=== PATIENT | female | born 1945 | race Caucasian/White ===

== ENCOUNTER 2020-09-02 08:10 | Emergency (ER) | payer MEDICARE, SELFPAY ==
[2020-09-02 08:18] VITALS: BP 130/62; PULSE 84; RESP 16; TEMP 36.4; O2SAT 97; BMI 31.0
--- NOTE | 2020-09-02 08:31 | ED.HA ---
HPI - Headache General Chief Complaint: Headache Stated Complaint: headache Time Seen by Provider: 09/02/20 08:31 Source: patient and conference interpreter Mode of arrival: ambulatory Limitations: no limitations History of Present Illness MD elicited complaint: headache and other (body aches, abdominal pain and nausea) Onset (ago): day(s) (2) Onset description: gradually Location: generalized Severity: moderate Quality & Timing: aching and throbbing Exacerbating factors: none Relieving factors: nothing Context: occurred at rest Associated symptoms: nausea and other (abdominal pain, body aches) Treatments prior to arrival: none Related Data Previous Rx's Medication Instructions Recorded hydrocodone-acetaminophen 1 tab PO Q6H PRN #7 tab 09/02/20 levofloxacin 250 mg PO DAILY 7 Days #7 tab 09/02/20 metronidazole [Flagyl] 500 mg PO BID #14 tab 09/02/20 ondansetron 4 mg PO Q8H PRN #20 tab 09/02/20 Allergies Allergy/AdvReac Type Severity Reaction Status Date / Time ampicillin [AMPICILLIN] Allergy Intermediate RASH Verified 09/02/20 08:15 aspirin [Aspirin] Allergy Unknown UNKNOWN Verified 09/02/20 08:15 clarithromycin [From Biaxin] Allergy Unknown UNKNOWN Verified 09/02/20 08:15 naproxen [From NAPROSYN] Allergy Unknown UNKNOWN Verified 09/02/20 08:15 penicillin V Allergy Unknown Unknown Verified 09/02/20 08:15 Penicillins Allergy Unknown UNKNOWN Verified 09/02/20 08:15 Motrin Allergy Unknown Unknown Uncoded 09/02/20 08:15 From AVELOX AdvReac Intermediate RASH Uncoded 08/13/20 15:32 Review of Systems Review of Systems: Constitutional : No Fever, No Chills, No Fatigue ENT/Mouth : No sore throat, No Rhinorrhea Eyes: No Eye Pain, No Swelling, No Redness Cardiovascular : No Chest Pain, No SOB, No Dyspnea on Exertion Respiratory : No Cough, No Sputum Gastrointestinal : pos Nausea, No Vomiting, No Diarrhea, pos abdominal Pain Genitourinary : No Dysuria, No Urinary Frequency, No Hematuria, Musculoskeletal : No joint pain, No Myalgias, No Joint Swelling Skin : No Skin Lesions, No rash Neuro : No Weakness, No Numbness, No Dizziness, positive Headache Psych : No Anxiety/Panic, No Depression Heme/Lymph: No Bruising, No Bleeding,No Lymphadenopathy Endocrine : No Polyuria, No Polydipsia All other systems reviewed and are negative [facility] Past Medical History Medical History (Updated 09/02/20 @ 11:31 by Jessica Tian DO) Asthma Diabetes HTN (hypertension) Surgical History (Updated 09/02/20 @ 09:45 by Jessica Tian DO) History of hysterectomy Social History Social History Smoking Status: Never smoker Smoked in Last 30 Days: No Use of substances other than those prescribed or required for medical reasons: No Advance Directives: No Advance Directives Information Provided: No Physical Exam Vital Signs and I&O and Narrative: Vital Signs and I&O: Vital Signs Temp 98.8 F 09/02/20 10:57 Pulse 75 09/02/20 10:57 Resp 16 09/02/20 10:57 BP 100/46 L 09/02/20 10:57 Pulse Ox 100 09/02/20 10:57 Intake & Output 09/01/20 09/02/20 09/02/20 18:59 06:59 18:59 Weight 72.121 kg Body Mass Index 31.0 Appearance: Alert. Oriented X3. No acute distress. Eyes: Pupils equal, round and reactive to light. ENT: Pharynx normal. Neck: Normal inspection. Neck supple. CVS: Normal heart rate and rhythm. Pulses normal. Respiratory: No respiratory distress. Breath sounds normal. Abdomen: Soft and mild epigastric ttp Skin: Skin warm and dry. Normal skin color. Normal skin turgor. Extremities: No lower extremity edema. No lower extremity edema. Neuro: Oriented X 3. No motor deficit. No sensory deficit. Course Course Course Narrative: patient feels much better stable for DC, allergy to PCN will need levo and flagyl, patient feels well to go home MDM - Headache MDM Narrative Medical decision making narrative: patient with multiple complaints including abdominal pain and nausea for 2 days, body aches and headache, given age will need labs, CT scan for obstruction, EKG, IV morphine for pain, gradual onset, neuro intact no fevers doubt [employer] infection/SAH Lab Data Result diagrams: 09/02/20 09:05 09/02/20 09:05 Labs: Lab Results 10/07/20 10/07/20 10/07/20 Range/Units 09:05 09:05 09:05 WBC 8.3 (4.8-10.8) X10*3/uL RBC 3.40 L (4.20-5.50) X10*6/uL Hgb 10.6 L (12.0-16.0) g/dl Hct 33.1 L (37-47) % MCV 97.4 (80-98) fL MCH 31.2 (27.0-33.0) pg MCHC 32.0 (31.0-35.0) g/dl RDW 12.2 (11.0-16.0) % Plt Count 226 (160-400) X10*3/uL MPV 9.5 (9.4-12.3) fL Immature Gran % (Auto) 0.8 H (0.0-0.4) % Neut % (Auto) 68.7 (45-73) % Lymph % (Auto) 17.9 L (20-40) % Jackson % (Auto) 8.0 (2-11) % Eos % (Auto) 4.0 (0-4) % Baso % (Auto) 0.6 (0-2) % Neut # (Auto) 5.7 (2.0-8.3) X10*3/uL Lymph # (Auto) 1.5 (1.2-4.9) X10*3/uL Jackson # (Auto) 0.7 (0.1-1.2) X10*3/uL Eos # (Auto) 0.3 (0.0-0.4) X10*3/uL Baso # (Auto) 0.1 (0.0-0.2) X10*3/uL Abs Immat Gran (auto) 0.07 H (0.00-0.03) X10*3/uL Absolute Nucleated RBC 0.000 (0.0-0.012) X10*3/uL Nucleated RBC % (auto) 0.0 (0.0-0.2) /100WBC Hold Blue Top SEE NOTE Sodium 140 (135-145) mmol/L Potassium 4.5 (3.3-5.1) mmol/l Chloride 107 (96-108) mmol/L Carbon Dioxide 22 (22-29) mmol/L Anion Gap 16 (12-20) BUN 25 H (9-16) mg/dL Creatinine 0.67 (0.5-1.4) mg/dL Estim Creat Clear Calc 64.3 Estimated GFR > 60 Random Glucose 194 H (60-115) mg/dL Calcium 9.0 (8.4-10.2) mg/dL Magnesium 1.7 (1.6-2.6) mg/dL Total Bilirubin 0.3 (0.0-1.0) mg/dL Direct Bilirubin < 0.2 (0.0-0.5) mg/dL AST 37 H (5-31) U/L ALT 44 H (0-31) U/L Alkaline Phosphatase 52 (39-117) U/L Troponin I High Sens (<3.5-17.0) ng/L Total Protein 6.5 (6.5-8.0) g/dL Albumin 3.9 (3.5-5.0) g/dL Lipase 57 (8-78) U/L 09/02/20 Range/Units 09:05 WBC (4.8-10.8) X10*3/uL RBC (4.20-5.50) X10*6/uL Hgb (12.0-16.0) g/dl Hct (37-47) % MCV (80-98) fL MCH (27.0-33.0) pg MCHC (31.0-35.0) g/dl RDW (11.0-16.0) % Plt Count (160-400) X10*3/uL MPV (9.4-12.3) fL Immature Gran % (Auto) (0.0-0.4) % Neut % (Auto) (45-73) % Lymph % (Auto) (20-40) % Jackson % (Auto) (2-11) % Eos % (Auto) (0-4) % Baso % (Auto) (0-2) % Neut # (Auto) (2.0-8.3) X10*3/uL Lymph # (Auto) (1.2-4.9) X10*3/uL Jackson # (Auto) (0.1-1.2) X10*3/uL Eos # (Auto) (0.0-0.4) X10*3/uL Baso # (Auto) (0.0-0.2) X10*3/uL Abs Immat Gran (auto) (0.00-0.03) X10*3/uL Absolute Nucleated RBC (0.0-0.012) X10*3/uL Nucleated RBC % (auto) (0.0-0.2) /100WBC Hold Blue Top Sodium (135-145) mmol/L Potassium (3.3-5.1) mmol/l Chloride (96-108) mmol/L Carbon Dioxide (22-29) mmol/L Anion Gap (12-20) BUN (9-16) mg/dL Creatinine (0.5-1.4) mg/dL Estim Creat Clear Calc Estimated GFR Random Glucose (60-115) mg/dL Calcium (8.4-10.2) mg/dL Magnesium (1.6-2.6) mg/dL Total Bilirubin (0.0-1.0) mg/dL Direct Bilirubin (0.0-0.5) mg/dL AST (5-31) U/L ALT (0-31) U/L Alkaline Phosphatase (39-117) U/L Troponin I High Sens 8.8 (<3.5-17.0) ng/L Total Protein (6.5-8.0) g/dL Albumin (3.5-5.0) g/dL Lipase (8-78) U/L ECG Data ECG interpretation date: 09/02/20 ECG interpretation time: 10:27 Interpretation: Rate: 74 Rhythm: NSR Pingree: normal Normal P waves. Normal MALINDA. Normal QRS complex. ST T wave : normal qTC: normal prior studies: no acute ischemia The study has been interpreted contemporaneously by me. . Discharge Plan Discharge Clinical Impression: Diverticulitis Patient Disposition: Home, Self-Care Instructions: Diverticulitis (ED) Prescriptions: New metronidazole [Flagyl] 500 mg tablet 500 mg PO BID Qty: 14 RF: 0 levofloxacin 250 mg tablet 250 mg PO DAILY 7 Days Qty: 7 RF: 0 ondansetron 4 mg tablet,disintegrating 4 mg PO Q8H PRN (Reason: nausea and vomiting) Qty: 20 RF: 0 hydrocodone-acetaminophen 5-325 mg tablet 1 tab PO Q6H PRN (Reason: pain) Qty: 7 RF: 0 Referrals: Xenia England MD [Primary Care Provider] - 5 days Print Language: Lithuanian
--- NOTE | 2020-09-02 08:57 | XR_ITS ---
EXAMINATION: XR CHEST CLINICAL INFORMATION: Weakness COMPARISON: Portable chest 05/14/2020, 01/30/2020, 01/07/2020 TECHNIQUE: Portable upright AP view of the chest was obtained. FINDINGS: Cardiopulmonary appearance appears similar to prior studies. Again, there is mild prominence cardiopericardial silhouette with coarsening of the bronchiolar markings and linear scar adjacent to minor fissure. There is no lobar or segmental airspace consolidation, vascular congestion, or effusion. No definite groundglass opacities. The hilar and mediastinal contours and bony structures are unremarkable. IMPRESSION: 1. No acute intrathoracic disease. 2. Coarsening bronchiolar markings, mild cardiomegaly, and scarring right mid zone similar to prior studies.
--- NOTE | 2020-09-02 08:57 | ECG_ITS ---
Test Reason : HEADACHE Blood Pressure : / mmHG Vent. Rate : 074 BPM Atrial Rate : 074 BPM P-R Int : 154 ms QRS Dur : 086 ms QT Int : 392 ms P-R-T Axes : 041 026 043 degrees QTc Int : 435 ms Normal sinus rhythm Cannot rule out Anterior infarct , age undetermined Abnormal ECG When compared with ECG of 19-MAY-2020 05:53, No significant change was found Referred By: Jessica Tian Electronically Signed By:MAGALI MC
--- NOTE | 2020-09-02 08:57 | CT_ITS ---
EXAMINATION: CT ABDOMEN AND PELVIS WITHOUT CONTRAST CLINICAL INFORMATION: Pain and nausea COMPARISON: Previous abdominal ultrasound October [address] of the abdomen and pelvis September 2018 TECHNIQUE: Multidetector volumetric imaging was performed from the superior aspect of the liver through the pubic symphysis. Sagittal and coronal reformatted images were obtained on the technologist's workstation. This CT examination was performed using dose optimization techniques as appropriate, variously including the following: *Automated exposure control *Adjustment of mA and/or kV according to patient size (this includes techniques or standardized protocols for targeted exams where dose is matched to indication/reason for exam; i.e. extremities or head) *Use of iterative reconstruction technique DLP: 576 mGy-cm FINDINGS: LUNG BASES: There is subsegmental atelectasis seen at the lung bases. There is a 5 mm peripheral left lower lobe nodule axial image 22 series 4 that is stable. There is question of mild peripheral interstitial disease versus dependent atelectasis. The heart is enlarged. These findings are similar to 2018 exam. LIVER, GALLBLADDER, AND BILIARY TREE: The liver is normal in size, shape, and attenuation. No focal hepatic lesion or biliary ductal dilatation is present. The gallbladder is unremarkable with no evidence of radiopaque gallstones, gallbladder wall thickening, or obvious pericholecystic inflammatory changes. PANCREAS: There are 2 small calcifications seen in the head of pancreas. These are similar to September 2018 exam. The pancreas is otherwise unremarkable. There is no biliary duct dilatation. SPLEEN: Unremarkable. ADRENAL GLANDS: There is a 7 mm partially calcified nodule in the posterior limb of the left adrenal gland axial image 21 series 3 that is stable. The right adrenal gland is normal-appearing. KIDNEYS AND URETERS: There is a question of a slight increased attenuation in the upper pole of the left kidney measuring approximately 6 mm axial image 27 series 3. This may represent a complex cyst. There is a 1 cm low-attenuation lesion exophytic to the lower pole of the left kidney that is similar to previous exam and probably represents a cyst or BLADDER: Not optimally distended but appears unremarkable. GASTROINTESTINAL TRACT: There is evidence of severe diverticulosis of the colon. There is wall thickening of the sigmoid colon and it is definite difficult to exclude mild diverticulitis. No evidence of obstruction or abscess is seen. Small bowel is unremarkable. The appendix is unremarkable. The stomach is unremarkable. ABDOMINAL WALL: No significant hernia is appreciated. LYMPH NODES: Normal. VASCULAR: Unremarkable. PELVIC VISCERA: The uterus appears to have been removed. No pelvic mass is seen. OSSEOUS STRUCTURES: There are old right-sided rib fractures. There are mild degenerative changes of the spine. IMPRESSION: Severe diverticular disease of the colon. It is difficult to exclude mild diverticulitis of the sigmoid colon. Probable left renal cysts with question hyperdense cyst in the upper pole. Stable small calcifications in the head of the pancreas..
[2020-09-02 09:11] LABS: MANUAL DIFF FLAG NO
[2020-09-02 09:14] LABS: Basophils Absolute Auto 0.1 X10*3/uL (0.0-0.2); Basophils Percent Auto 0.6 % (0-2); Eosinophils Absolute Auto 0.3 X10*3/uL (0.0-0.4); Hematocrit 33.1 % (37-47); Hemoglobin 10.6 g/dl (12.0-16.0); Imm Gran Abs Auto 0.07 X10*3/uL (0.00-0.03); Imm Gran Pct Auto 0.8 % (0.0-0.4); Lymphocytes Absolute Auto 1.5 X10*3/uL (1.2-4.9); Lymphocytes Percent Auto 17.9 % (20-40); Mean Corpuscular Hemoglobin 31.2 pg (27.0-33.0); Mean Corpuscular Volume 97.4 fL (80-98); Mean Platelet Volume 9.5 fL (9.4-12.3); Monocytes Absolute Auto 0.7 X10*3/uL (0.1-1.2); Neutrophils Absolute Auto 5.7 X10*3/uL (2.0-8.3); Neutrophils Percent Auto 68.7 % (45-73); Platelet Count 226 X10*3/uL (160-400); Red Cell Distribution Width 12.2 % (11.0-16.0); White Blood Count 8.3 X10*3/uL (4.8-10.8)
[2020-09-02] MEDS: ondansetron HCL 4 MG/2 ML VIAL IVPUSH (09:17)
[2020-09-02] MEDS: Morphine Sulfate 4 MG/ML CARTRIDGE IVPUSH (09:17)
[2020-09-02 09:18] VITALS: BP 117/58; PULSE 88
[2020-09-02 09:44] LABS: Troponin-I High Sensitivity 8.8 ng/L (<3.5-17.0)
[2020-09-02 09:46] LABS: Alanine Aminotransferase 44 U/L (0-31); Albumin Level 3.9 g/dL (3.5-5.0); Alkaline Phosphatase 52 U/L (39-117); Anion Gap 16 (12-20); Aspartate Amino Transferase 37 U/L (5-31); Bilirubin Direct < 0.2 mg/dL (0.0-0.5); Bilirubin Total 0.3 mg/dL (0.0-1.0); Blood Urea Nitrogen 25 mg/dL (9-16); Carbon Dioxide 22 mmol/L (22-29); Chloride 107 mmol/L (96-108); Creatinine Clr Calc Pharmacy 64.3; Estimated Glomerular Filt Rate > 60; Glucose Random 194 mg/dL (60-115); Lipase 57 U/L (8-78); Magnesium 1.7 mg/dL (1.6-2.6); Potassium 4.5 mmol/l (3.3-5.1); Sodium 140 mmol/L (135-145); Total Protein 6.5 g/dL (6.5-8.0)
[2020-09-02 10:57] VITALS: BP 100/46; PULSE 75; RESP 16; TEMP 37.1; O2SAT 100
== END 2020-09-02 12:00 | disposition home or self-care (01) ==
PROVIDERS: Emergency Provider Emergency Medicine; PCP Internal Medicine
DX: K57.92 Diverticulitis of intestine, part unspecified, without perforation or abscess without bleeding (principal); E11.9 Type 2 diabetes mellitus without complications; I10 Essential (primary) hypertension; J45.909 Unspecified asthma, uncomplicated
CPT/HCPCS: 36415; 71045; 74176; 80048; 80076; 83690; 83735; 84484; 85025; 93005; 93010; 96374; 96375; 99284; J2270; J2405

== ENCOUNTER → 2020-09-11 12:31 | Outpatient (BNVA) | payer MEDICARE, SELFPAY | PROVIDERS: PCP Internal Medicine; Referring Provider Internal Medicine; Visit Provider Nurse Practitioner | DX: K21.9 Gastro-esophageal reflux disease without esophagitis (principal); K22.70 Barrett's esophagus without dysplasia; K22.4 Dyskinesia of esophagus; Z79.899 Other long term (current) drug therapy | CPT/HCPCS: 99213 ==

== ENCOUNTER 2020-09-21 07:49 | Emergency (ER) | payer MEDICARE, SELFPAY ==
[2020-09-21 08:10] VITALS: BP 127/59; PULSE 87; RESP 17; TEMP 36.1; O2SAT 98; BMI 29.2
--- NOTE | 2020-09-21 08:17 | XR_ITS ---
EXAMINATION: XR CHEST CLINICAL INFORMATION: Body aches, chills, productive cough for one week COMPARISON: Chest radiographs 09/02/2020, 05/19/2020, 05/14/2020, CT abdomen 09/02/2020 TECHNIQUE: Portable upright AP view of the chest was obtained. FINDINGS: Patient slightly rotated to left. There is coarsening bronchiolar markings again noted with some chronic thickening minor fissure is similar to prior studies. There is subtle groundglass opacity and subsegmental atelectasis left retrocardiac region. There is no confluent lobar or segmental airspace consolidation. No effusion. The costophrenic sulci are clear. The hilar and mediastinal contours and bony structures are stable. XR/XR chest 1V IMPRESSION: 1. Patchy groundglass opacity left posterior base which could be related to atypical pneumonia or viral process. 2. Coarsening bronchiolar markings. No effusion.
--- NOTE | 2020-09-21 08:46 | ED_ITS ---
HPI - URI/Sore Throat General Chief Complaint: Upper Respiratory Symptoms Stated Complaint: NECK/BACK PAIN Time Seen by Provider: 09/21/20 08:06 Source: patient Mode of arrival: ambulatory Limitations: no limitations History of Present Illness HPI Narrative: 75yoF c PMHx of multivessel CAD, severe COPD, HTN, HLD, DM, Mitral regurgitation whom recently underwent PCI c stent placement to proximal 0M-2 coronary artery x 3 weeks at [facility] presenting to the ED c c/o dry intermittent cough c sob and body aches x 3 days. Patient was instructed to continue aspirin and Plavix daily. Patient denies any dizziness, headache, nausea /vomiting, chest pain or any other symptoms or complaints or concerns at this time. denies recent travel or sick contacts. Related Data Previous Rx's Medication Instructions Recorded hydrocodone-acetaminophen 1 tab PO Q6H PRN #7 tab 09/02/20 levofloxacin 250 mg PO DAILY 7 Days #7 tab 09/02/20 metronidazole [Flagyl] 500 mg PO BID #14 tab 09/02/20 ondansetron 4 mg PO Q8H PRN #20 tab 09/02/20 omeprazole 20 mg capsule,delayed 20 mg PO BID 30 Days #60 cap 09/08/20 release acetaminophen [Tylenol] 650 mg PO Q6H PRN #14 tab 09/21/20 cyclobenzaprine 10 mg PO TID PRN #10 tab 09/21/20 doxycycline hyclate 100 mg PO BID 10 Days #20 cap 09/21/20 Allergies Allergy/AdvReac Type Severity Reaction Status Date / Time ampicillin [AMPICILLIN] Allergy Intermediate RASH Verified 09/02/20 08:15 aspirin [Aspirin] Allergy Unknown UNKNOWN Verified 09/02/20 08:15 clarithromycin [From Biaxin] Allergy Unknown UNKNOWN Verified 09/02/20 08:15 penicillin V Allergy Unknown Unknown Verified 09/02/20 08:15 Penicillins Allergy Unknown UNKNOWN Verified 09/02/20 08:15 Motrin Allergy Unknown Unknown Uncoded 09/02/20 08:15 From AVELOX AdvReac Intermediate RASH Uncoded 08/13/20 15:32 Review of Systems Review of Systems: Constitutional : No Weight loss, No Fever, No Chills, No Night Sweats, No Fatigue, No Malaise ENT/Mouth : No Hearing loss, No Ear Pain, No Nasal Congestion, No Sinus Pain, No Hoarseness, No sore throat, No Rhinorrhea, No Swallowing Difficulty Eyes: No Eye Pain, No Vision Changes Cardiovascular : + SOB, no Dyspnea on Exertion, No Orthopnea, No Edema, No extremity swelling, No Palpitations Respiratory : + Cough, No Sputum, No Wheezing, No Dyspnea Gastrointestinal : No Nausea, No Vomiting, No Diarrhea, No abdominal Pain, No Hematochezia, No Melena DU: No Dysuria Musculoskeletal : No joint pain, No Myalgias, No Joint Swelling Skin : No Skin Lesions, No rash Neuro : No Weakness, No Numbness, No Paresthesias, No Loss of Consciousness, No Dizziness, No Headache Psych : No Anxiety/Panic, No Depression, No SI/HI/AH/VH Heme/Lymph: No Lymphadenopathy Endocrine : No Polyuria, No Polydipsia, No Temperature Intolerance Yes all oth er systems are reviewed and are negative [facility] Past Medical History Attestation statement: The following information was validated with the patient. Medical History Asthma Diabetes HTN (hypertension) Surgical History History of heart artery stent (~03/2019) History of hysterectomy Hx of colonoscopy (~06/2015) Family History Family History Father No problems noted. Mother No problems noted. Other Cancer Diabetes Heart problem Social History Social History Alcohol intake: never Smoking Status: Never smoker Use of substances other than those prescribed or required for medical reasons: No Advance Directives: No Advance Directives Information Provided: No Physical Exam Vital Signs: Vital Signs: Vital Signs Temp Pulse Resp BP Pulse Ox 09/21/20 14:12 98.0 F 82 16 120/63 09/21/20 12:00 83 16 129/64 09/21/20 10:00 98.1 F 83 18 116/54 L 09/21/20 08:10 97.0 F 87 17 127/59 L 98 Body Mass Index 29.2 vital signs have been reviewed as normal and appeared to be correct. Blood pressure normal. Heart rate normal. Respiration rate normal. Temperature normal. Oxygen saturation normal. Appearance: Alert. Oriented X3. No acute distress. Head: Normal external exam. Normocephalic. Atraumatic. No Newton signs noted. No raccoon eyes noted Eyes: PERRLA. EOMI. Conjunctiva and sclera normal. Eyelids normal. ENT: EAC normal. TM's Normal. Pharynx normal. Uvula midline. Moist mucous membranes. No trismus noted. No drooling noted. No muffled voice noted. Neck: Normal inspection. Neck supple. FROM. No adenopathy. Thyroid Normal. No meningeal signs. No neck mass noted. CVS: Normal heart rate and rhythm. Heart sound normal. No murmurs noted. Pulses normal throughout. Respiratory: No respiratory distress. Painless inspiration. Breath sounds normal. No wheezes/rales/rhonchi noted. Chest nontender. No accessory muscle usage noted or decreased air movement noted. Abdomen: Soft and nontender. Bowel sounds normal in all 4 quadrants. No distention noted. No organomegaly noted. No visible injury noted. Back: No CVA tenderness. Full range of motion noted. Skin: Skin warm and dry. Normal skin color. Normal skin turgor. No rashes/lesions/lacerations noted. Extremities: +1 pitting edema to b/l lower extremities. lower extremity edema. Extremities exhibit normal range of motion. Extremities nontender. Neuro: Oriented X 3. No motor deficit. No sensory deficit. Reflexes normal. Course Course Course Narrative: 9am 75yoF c PMHx of multivessel CAD, severe COPD, HTN, HLD, DM, Mitral regurgitation whom recently underwent PCI c stent placement to proximal 0M-2 coronary artery x 3 weeks at [facility] presenting to the ED c c/o dry intermittent cough c sob and body aches x 3 days. Patient was instructed to continue aspirin and Plavix daily. Patient denies any dizziness, headache, nausea /vomiting, chest pain or any other symptoms or complaints or concerns at this time. denies recent travel or sick contacts. - records from [facility] will be obtained and reviewed. - Concern for PE vs COPD excerbation vs PNA vs CHF. - Plan: Labs, CXR, EKG Then re-evaluate. Reevaluation(s) Reevaluation #1: - Pt's Mag at 1.3 and troponin elevated at 11.2. otherwise all other labs are within normal limits. Patient continues to deny any chest pain at this time. EKG is normal sinus rhythm and similar compared to last EKG done at [facility] June 2020 no acute ischemic changes noted therefore repeat troponin scheduled for 12 noon. magnesium being replaced at this time with 2 g of IV magnesium. - Chest x-ray revealed patchy ground-glass opacities in the left posterior base most likely related to Viral pneumonia - At this time awaiting repeat troponin. Time: 12:01 Reevaluation #2: Repeat troponin went from 11.2-8.9 therefore negative delta and patient continues to deny any chest pain. Will DC home with antibiotics for COVID pneumonia and symptomatic treatment along with instructions to self isolate and to return if any new or worsening symptoms especially to monitor her oxygen saturation and to follow up with primary care provider. Patient understands agrees with this plan. Time: 14:24 MDM - URI/Sore Throat Medical Records Attestation: I reviewed the patient's medical records. Lab Data Attestation: I reviewed the patient's lab results. Result diagrams: 09/21/20 08:56 09/21/20 08:56 Labs: Lab Results 09/21/20 09/21/20 09/21/20 Range/Units 08:56 08:56 08:56 WBC 7.7 (4.8-10.8) X10*3/uL RBC 3.89 L (4.20-5.50) X10*6/uL Hgb 11.9 L (12.0-16.0) g/dl Hct 37.7 (37-47) % MCV 96.9 (80-98) fL MCH 30.6 (27.0-33.0) pg MCHC 31.6 (31.0-35.0) g/dl RDW 12.1 (11.0-16.0) % Plt Count 183 (160-400) X10*3/uL MPV 9.6 (9.4-12.3) fL Immature Gran % (Auto) 0.4 (0.0-0.4) % Neut % (Auto) 56.5 (45-73) % Lymph % (Auto) 26.9 (20-40) % [place] % (Auto) 9.1 (2-11) % Eos % (Auto) 6.6 H (0-4) % Baso % (Auto) 0.5 (0-2) % Lymph # (Auto) 2.1 (1.2-4.9) X10*3/uL [place] # (Auto) 0.7 (0.1-1.2) X10*3/uL Eos # (Auto) 0.5 H (0.0-0.4) X10*3/uL Baso # (Auto) 0.0 (0.0-0.2) X10*3/uL Abs Immat Gran (auto) 0.03 (0.00-0.03) X10*3/uL Absolute Neuts (auto) 4.4 (2.0-8.3) X10*3/uL Absolute Nucleated RBC 0.000 (0.0-0.012) X10*3/uL Nucleated RBC % (auto) 0.0 (0.0-0.2) /100WBC Hold Purple Top SEE NOTE PT 11.8 (10.8-13.0) SEC INR 1.0 (0.9-1.1) D-Dimer < 200 NG/ML Sodium (135-145) mmol/L Potassium (3.3-5.1) mmol/l Chloride (96-108) mmol/L Carbon Dioxide (22-29) mmol/L Anion Gap (12-20) BUN (9-16) mg/dL Creatinine (0.5-1.4) mg/dL Estim Creat Clear Calc Estimated GFR Random Glucose (60-115) mg/dL Calcium (8.4-10.2) mg/dL Magnesium (1.6-2.6) mg/dL Total Bilirubin (0.0-1.0) mg/dL Direct Bilirubin (0.0-0.5) mg/dL AST (5-31) U/L ALT (0-31) U/L Alkaline Phosphatase (39-117) U/L Troponin I High Sens (<3.5-17.0) ng/L B-Natriuretic Peptide (<100) pg/mL Total Protein (6.5-8.0) g/dL Albumin (3.5-5.0) g/dL Urine Color Urine Appearance Urine pH (5.0-8.0) Ur Specific Rhodes (1.005-1.025) Urine Protein (NEG-TRACE) MG/DL Urine Glucose (UA) (NEG) MG/DL Urine Ketones (NEG) MG/DL Urine Blood (NEG) Urine Nitrite (NEG) Ur Leukocyte Esterase (NEG) 09/21/20 09/21/20 09/21/20 Range/Units 08:56 08:56 12:40 WBC (4.8-10.8) X10*3/uL RBC (4.20-5.50) X10*6/uL Hgb (12.0-16.0) g/dl Hct (37-47) % MCV (80-98) fL MCH (27.0-33.0) pg MCHC (31.0-35.0) g/dl RDW (11.0-16.0) % Plt Count (160-400) X10*3/uL MPV (9.4-12.3) fL Immature Gran % (Auto) (0.0-0.4) % Neut % (Auto) (45-73) % Lymph % (Auto) (20-40) % [place] % (Auto) (2-11) % Eos % (Auto) (0-4) % Baso % (Auto) (0-2) % Lymph # (Auto) (1.2-4.9) X10*3/uL [place] # (Auto) (0.1-1.2) X10*3/uL Eos # (Auto) (0.0-0.4) X10*3/uL Baso # (Auto) (0.0-0.2) X10*3/uL Abs Immat Gran (auto) (0.00-0.03) X10*3/uL Absolute Neuts (auto) (2.0-8.3) X10*3/uL Absolute Nucleated RBC (0.0-0.012) X10*3/uL Nucleated RBC % (auto) (0.0-0.2) /100WBC Hold Purple Top PT (10.8-13.0) SEC INR (0.9-1.1) D-Dimer NG/ML Sodium 142 (135-145) mmol/L Potassium 3.9 (3.3-5.1) mmol/l Chloride 104 (96-108) mmol/L Carbon Dioxide 27 (22-29) mmol/L Anion Gap 15 (12-20) BUN 19 H (9-16) mg/dL Creatinine 0.68 (0.5-1.4) mg/dL Estim Creat Clear Calc 61.5 Estimated GFR > 60 Random Glucose 179 H (60-115) mg/dL Calcium 9.3 (8.4-10.2) mg/dL Magnesium 1.3 L* (1.6-2.6) mg/dL Total Bilirubin 0.5 (0.0-1.0) mg/dL Direct Bilirubin 0.2 (0.0-0.5) mg/dL AST 26 (5-31) U/L ALT 36 H (0-31) U/L Alkaline Phosphatase 53 (39-117) U/L Troponin I High Sens 11.2 (<3.5-17.0) ng/L B-Natriuretic Peptide 105 H (<100) pg/mL Total Protein 6.4 L (6.5-8.0) g/dL Albumin 4.0 (3.5-5.0) g/dL Urine Color YELLOW Urine Appearance HAZY Urine pH 5.5 (5.0-8.0) Ur Specific Rhodes 1.010 (1.005-1.025) Urine Protein NEG (NEG-TRACE) MG/DL Urine Glucose (UA) NEG (NEG) MG/DL Urine Ketones NEG (NEG) MG/DL Urine Blood NEG (NEG) Urine Nitrite POS H (NEG) Ur Leukocyte Esterase 1+ H (NEG) 09/21/20 Range/Units 13:15 WBC (4.8-10.8) X10*3/uL RBC (4.20-5.50) X10*6/uL Hgb (12.0-16.0) g/dl Hct (37-47) % MCV (80-98) fL MCH (27.0-33.0) pg MCHC (31.0-35.0) g/dl RDW (11.0-16.0) % Plt Count (160-400) X10*3/uL MPV (9.4-12.3) fL Immature Gran % (Auto) (0.0-0.4) % Neut % (Auto) (45-73) % Lymph % (Auto) (20-40) % [place] % (Auto) (2-11) % Eos % (Auto) (0-4) % Baso % (Auto) (0-2) % Lymph # (Auto) (1.2-4.9) X10*3/uL [place] # (Auto) (0.1-1.2) X10*3/uL Eos # (Auto) (0.0-0.4) X10*3/uL Baso # (Auto) (0.0-0.2) X10*3/uL Abs Immat Gran (auto) (0.00-0.03) X10*3/uL Absolute Neuts (auto) (2.0-8.3) X10*3/uL Absolute Nucleated RBC (0.0-0.012) X10*3/uL Nucleated RBC % (auto) (0.0-0.2) /100WBC Hold Purple Top PT (10.8-13.0) SEC INR (0.9-1.1) D-Dimer NG/ML Sodium (135-145) mmol/L Potassium (3.3-5.1) mmol/l Chloride (96-108) mmol/L Carbon Dioxide (22-29) mmol/L Anion Gap (12-20) BUN (9-16) mg/dL Creatinine (0.5-1.4) mg/dL Estim Creat Clear Calc Estimated GFR Random Glucose (60-115) mg/dL Calcium (8.4-10.2) mg/dL Magnesium (1.6-2.6) mg/dL Total Bilirubin (0.0-1.0) mg/dL Direct Bilirubin (0.0-0.5) mg/dL AST (5-31) U/L ALT (0-31) U/L Alkaline Phosphatase (39-117) U/L Troponin I High Sens 8.9 (<3.5-17.0) ng/L B-Natriuretic Peptide (<100) pg/mL Total Protein (6.5-8.0) g/dL Albumin (3.5-5.0) g/dL Urine Color Urine Appearance Urine pH (5.0-8.0) Ur Specific Rhodes (1.005-1.025) Urine Protein (NEG-TRACE) MG/DL Urine Glucose (UA) (NEG) MG/DL Urine Ketones (NEG) MG/DL Urine Blood (NEG) Urine Nitrite (NEG) Ur Leukocyte Esterase (NEG) Imaging Data Chest x-ray: Attestation: I personally reviewed and interpreted this imaging study as follows: Radiologist's impression: FINDINGS: Patient slightly rotated to left. There is coarsening bronchiolar markings again noted with some chronic thickening minor fissure is similar to prior studies. There is subtle groundglass opacity and subsegmental atelectasis left retrocardiac region. There is no confluent lobar or segmental airspace consolidation. No effusion. The costophrenic sulci are clear. The hilar and mediastinal contours and bony structures are stable. XR/XR chest 1V IMPRESSION: 1. Patchy groundglass opacity left posterior base which could be related to atypical pneumonia or viral process. 2. Coarsening bronchiolar markings. No effusion. ECG Data Attestation: I personally reviewed and interpreted this ECG as follows: ECG interpretation date: 09/21/20 ECG interpretation time: 09:47 Prior ECG tracings: available for review Interpretation: Normal sinus rhythm with a ventricular rate of 88 with nonspecific T-wave abnormality with a normal QRS and normal QT/ QTC interval and similar when compared to EKG from [facility] records on June 2020. No acute ischemic changes noted. Discharge Plan Discharge Clinical Impression: COVID-19, Hypomagnesemia Patient Disposition: Home, Self-Care Instructions: Hypomagnesemia (ED), COVID-19 (Coronavirus Disease 2019) (ED) Additional Instructions: Bas?ndonos en carole s?ntomas e historia, hemos enviado un COVID-19. Aunque martinez resultado es PENDIENTE en marietta momento. LOS RESULTADOS deben regresar en un plazo de 72 horas. En marietta momento se le contactar? con resultados NEGATIVOS O POSITIVOS. -Por favor, espere hasta que nos pongamos en contacto con usted para carole resultados. En marietta momento usted estar? francois para el natalie. Por favor, planifique la cuarentena autom?robert por un m?ximo de 14 d?as. No te expongas a los dem?s. No puedes ir a trabajar. Si las pruebas vuelven negativas, puede volver a las actividades siempre y cuando ya no tenga s?ntomas kushal al menos 3 d?as. Por favor, siga las instrucciones en fr?o y l?vese las clinton con frecuencia. Puede kimi Tylenol seg?n las instrucciones del biber?n para el dolor o la fiebre. Paciente atendido en el servicio de urgencias el 05/22/2020 y debe ser eximido del trabajo hasta los resultados negativos de la prueba Y hasta que hayan pasado 72 horas sin s?ntomas Y hayan pasado al menos 10 d?as desde que aparecieron los s?ntomas por primera vez o desde la ?ltima exposici?n al paciente positivo COVID-19 Directrices de los CDC para el aislamiento en el hogar: - Mant?ngase alejado de los dem?s - USAR TONEY MASCARA si usted est? enfermo Y ESTANCIA HOGAR - C?brase la boca y la nariz con un pa?uelo de papel al toser o estornudar. Deseche los pa?uelos en toney papelera forrada y l?vese las clinton inmediatamente con agua y jab?n kushal al menos 20 segundos. Si no hay agua y jab?n disponibles, limpie las clinton con desinfectante de clinton a base de alcohol que contenga al menos 60% de alcohol. - L?mpiarse las clinton a menudo con agua y jab?n kushal al menos 20 segundos - Evite tocarse los ojos, la nariz y la boca con las clinton sin chencho - No comparta platos, vasos, tazas, utensilios para comer, toallas o ropa de cama con otras personas en martinez hogar. Despu?s de usar estos art?culos, l?velos francois con agua y jab?n o p?ngalos en el [place]. - Limpie las superficies de alto contacto en martinez ?kinjal de aislamiento ( habitaci?n de enfermos y ba?o) todos los d?as; permitir que el cuidador limpie y desinfecte las superficies de alto contacto en otras ?reas del hogar. Limpie el ?kinjal o el art?culo con agua y jab?n u otro detergente si est? sucio. Luego, usa un desinfectante dom?stico. - Limitar el contacto con mascotas y animales: Si debe cuidar de toney mascota, l?vese las clinton antes y despu?s de interactuar con ellos). Based on your symptoms and history we have sent a COVID-19. Although your RESULT IS PENDING at this time. RESULTS should return within 72 hours. At this time you will be contacted with either NEGATIVE OR POSITIVE results. -Please wait until we contact you for your results. At this time you will be okay for discharge. Please plan for self quarantine for up to 14 days. Do not expose yourself to others. You may not go to work. If testing does come back negative you may return to activities as long as you are no longer having any symptoms for at least 3 days. Please continue to follow cold instructions and wash your hands frequently. You may take Tylenol as directed on the bottle for pain or fever. Patient seen in the emergency department on 09/21/2020 and should be excused from work until negative test results AND until 72 hours without any symptoms AND at least 10 days have passed since symptoms first appeared or since last exposure to COVID-19 positive patient CDC Guidelines for home isolation: - Stay away from others - WEAR A MASK if you are sick AND STAY HOME - Cover your mouth and nose with a tissue when you cough or sneeze. Dispose of tissues in a lined trash can and wash your hands immediately with soap and water for at least 20 seconds. If soap and water are not available, clean hands with alcohol-based hand senior games technician that contains at least 60% alcohol. - Clean your hands often with soap and water for at least 20 seconds - Avoid touching your eyes, nose and mouth with unwashed hands - Do not share dishes, drinking glasses, cups, eating utensils, towels, or bedding with other people in your home. After using these items, wash them t horoughly with soap and water or put in the lehr loader. - Clean high-touch surfaces in your isolation area ( sick room and bathroom) every day; let a caregiver clean and disinfect high-touch surfaces in other areas of the home. Clean the area or item with soap and water or another detergent if it is dirty. Then, use a household disinfectant. - Limit contact with pets and animals: If you must care for a pet, wash your hands before and after interacting with them). Prescriptions: New doxycycline hyclate 100 mg capsule 100 mg PO BID 10 Days Qty: 20 RF: 0 cyclobenzaprine 10 mg tablet 10 mg PO TID PRN (Reason: muscle spasm) Qty: 10 RF: 0 acetaminophen [Tylenol] 325 mg tablet 650 mg PO Q6H PRN (Reason: fever or pain) Qty: 14 RF: 0 No Action omeprazole 20 mg capsule,delayed release(DR/EC) 20 mg PO BID 30 Days Qty: 60 RF: 1 metronidazole [Flagyl] 500 mg tablet 500 mg PO BID Qty: 14 RF: 0 levofloxacin 250 mg tablet 250 mg PO DAILY 7 Days Qty: 7 RF: 0 ondansetron 4 mg tablet,disintegrating 4 mg PO Q8H PRN (Reason: nausea and vomiting) Qty: 20 RF: 0 hydrocodone-acetaminophen 5-325 mg tablet 1 tab PO Q6H PRN (Reason: pain) Qty: 7 RF: 0 Referrals: Xenia England MD [Primary Care Provider] - 2 days Print Language: Luxembourger
[2020-09-21 09:06] LABS: MANUAL DIFF FLAG NO
--- NOTE | 2020-09-21 09:06 | ECG_ITS ---
Test Reason : COUGH Blood Pressure : / mmHG Vent. Rate : 088 BPM Atrial Rate : 088 BPM P-R Int : 158 ms QRS Dur : 074 ms QT Int : 366 ms P-R-T Axes : 012 024 042 degrees QTc Int : 442 ms Normal sinus rhythm Nonspecific ST abnormality Abnormal ECG When compared with ECG of 02-SEP-2020 10:21, No significant change was found Referred By: Maru Parker Electronically Signed By:MAXINE CHRISTENSEN MD
[2020-09-21 09:07] LABS: Basophils Percent Auto 0.5 % (0-2); Eosinophils Absolute Auto 0.5 X10*3/uL (0.0-0.4); Eosinophils Percent Auto 6.6 % (0-4); Hematocrit 37.7 % (37-47); Hemoglobin 11.9 g/dl (12.0-16.0); Imm Gran Abs Auto 0.03 X10*3/uL (0.00-0.03); Imm Gran Pct Auto 0.4 % (0.0-0.4); Lymphocytes Absolute Auto 2.1 X10*3/uL (1.2-4.9); Lymphocytes Percent Auto 26.9 % (20-40); Mean Corpuscular HGB Conc 31.6 g/dl (31.0-35.0); Mean Corpuscular Hemoglobin 30.6 pg (27.0-33.0); Mean Corpuscular Volume 96.9 fL (80-98); Mean Platelet Volume 9.6 fL (9.4-12.3); Monocytes Absolute Auto 0.7 X10*3/uL (0.1-1.2); Monocytes Percent Auto 9.1 % (2-11); Neutrophils Absolute Auto 4.4 X10*3/uL (2.0-8.3); Neutrophils Percent Auto 56.5 % (45-73); Platelet Count 183 X10*3/uL (160-400); Red Blood Count 3.89 X10*6/uL (4.20-5.50); Red Cell Distribution Width 12.1 % (11.0-16.0); White Blood Count 7.7 X10*3/uL (4.8-10.8)
[2020-09-21 09:18] LABS: Prothrombin Time 11.8 SEC (10.8-13.0)
[2020-09-21 09:23] LABS: D Dimer < 200 NG/ML
[2020-09-21 10:00] VITALS: BP 116/54; PULSE 83; RESP 18; TEMP 36.7
[2020-09-21 10:00] LABS: B Type Natriuretic Peptide 105 pg/mL (<100); Troponin-I High Sensitivity 11.2 ng/L (<3.5-17.0)
[2020-09-21 10:04] LABS: Alanine Aminotransferase 36 U/L (0-31); Alkaline Phosphatase 53 U/L (39-117); Anion Gap 15 (12-20); Aspartate Amino Transferase 26 U/L (5-31); Bilirubin Direct 0.2 mg/dL (0.0-0.5); Bilirubin Total 0.5 mg/dL (0.0-1.0); Blood Urea Nitrogen 19 mg/dL (9-16); Calcium 9.3 mg/dL (8.4-10.2); Carbon Dioxide 27 mmol/L (22-29); Chloride 104 mmol/L (96-108); Creatinine Clr Calc Pharmacy 61.5; Estimated Glomerular Filt Rate > 60; Glucose Random 179 mg/dL (60-115); Magnesium 1.3 mg/dL (1.6-2.6); Potassium 3.9 mmol/l (3.3-5.1); Sodium 142 mmol/L (135-145); Total Protein 6.4 g/dL (6.5-8.0)
[2020-09-21] MEDS: Magnesium Sulfate/H2O 2 GM/50 ML PIGGYBACK IV (11:00)
[2020-09-21 12:00] VITALS: BP 129/64; PULSE 83; RESP 16
[2020-09-21 13:07] LABS: Glucose Urine UA NEG (NEG); Leukocyte Esterase Urine 1+ (NEG); Nitrite Urine POS (NEG); PH 5.5 (5.0-8.0); Urine Blood NEG (NEG); Urine Ketones NEG (NEG); Urine Protein NEG (NEG-TRACE)
[2020-09-21 13:18] LABS: Appearance Urine HAZY; Color Urine YELLOW
[2020-09-21 13:20] LABS: RBC Urine 0 /HPF (0); Squamous Epithelial Cell Urine 1+ /LPF
[2020-09-21 13:21] LABS: Bacteria Urine 3+ /LPF
[2020-09-21 14:00] LABS: Troponin-I High Sensitivity 8.9 ng/L (<3.5-17.0)
[2020-09-21 14:12] VITALS: BP 120/63; PULSE 82; RESP 16; TEMP 36.7
== END 2020-09-21 15:07 | disposition home or self-care (01) ==
PROVIDERS: Physician Assistant Medical; Emergency Provider Internal Medicine; PCP Internal Medicine
DX: U07.1 COVID-19 (principal); E61.2 Magnesium deficiency; R07.89 Other chest pain; M54.5 Low back pain; I25.10 Atherosclerotic heart disease of native coronary artery without angina pectoris; I10 Essential (primary) hypertension; E11.9 Type 2 diabetes mellitus without complications; Z79.899 Other long term (current) drug therapy
CPT/HCPCS: 36415; 71045; 80048; 80076; 81001; 81003; 83735; 83880; 84484; 85025; 85379; 85610; 87086; 87088; 87186; 93005; 96365; 96366; 99285; J3475

== ENCOUNTER 2020-09-22 06:05 | Emergency (ER) | payer MEDICARE, SELFPAY ==
[2020-09-22 06:14] VITALS: BP 158/64; PULSE 78; RESP 16; TEMP 36.7; O2SAT 98; BMI 34.3
--- NOTE | 2020-09-22 06:41 | PC.NURSE ---
MD at bedside for evaluation. Patient is ethiopian speaking only
--- NOTE | 2020-09-22 06:45 | ED.GENADULT ---
HPI - General Adult General Chief complaint: Extremity Injury, Lower Stated complaint: Bilateral leg pain Time Seen by Provider: 09/22/20 06:14 Source: patient Mode of arrival: ambulatory Limitations: no limitations History of Present Illness HPI narrative: Patient comes to emergency room complaining of bilateral leg pain. Patient states it started yesterday, patient states it starts in her back, radiating down both legs, patient states she was recently diagnosed with pneumonia likely secondary to COVID, states she has generalized body aches as well. At this time, denies fever. Patient denies urinary/fecal incontinence or retention. Denies perineal anesthesia Related Data Previous Rx's Medication Instructions Recorded hydrocodone-acetaminophen 1 tab PO Q6H PRN #7 tab 09/02/20 levofloxacin 250 mg PO DAILY 7 Days #7 tab 09/02/20 metronidazole [Flagyl] 500 mg PO BID #14 tab 09/02/20 ondansetron 4 mg PO Q8H PRN #20 tab 09/02/20 omeprazole 20 mg capsule,delayed 20 mg PO BID 30 Days #60 cap 09/08/20 release acetaminophen [Tylenol] 650 mg PO Q6H PRN #14 tab 09/21/20 cyclobenzaprine 10 mg PO TID PRN #10 tab 09/21/20 doxycycline hyclate 100 mg PO BID 10 Days #20 cap 09/21/20 ciprofloxacin HCl 500 mg PO Q12H #14 tab 09/22/20 Allergies Allergy/AdvReac Type Severity Reaction Status Date / Time ampicillin [AMPICILLIN] Allergy Intermediate RASH Verified 09/02/20 08:15 aspirin [Aspirin] Allergy Unknown UNKNOWN Verified 09/02/20 08:15 clarithromycin [From Biaxin] Allergy Unknown UNKNOWN Verified 09/02/20 08:15 penicillin V Allergy Unknown Unknown Verified 09/02/20 08:15 Penicillins Allergy Unknown UNKNOWN Verified 09/02/20 08:15 Motrin Allergy Unknown Unknown Uncoded 09/02/20 08:15 From AVELOX AdvReac Intermediate RASH Uncoded 08/13/20 15:32 Review of Systems Review of Systems: Constitutional : No Weight loss, No Fever, No Chills, No Night Sweats, complaining of fatigue and malaise for several weeks ENT/Mouth : No Hearing loss, No Ear Pain, No Nasal Congestion, No Sinus Pain, No Hoarseness, No sore throat, No Rhinorrhea, No Swallowing Difficulty Eyes: No Eye Pain, No Swelling, No Redness, No Foreign Body, No Discharge, No Vision Changes Cardiovascular : No Chest Pain, No SOB, No Dyspnea on Exertion, No Orthopnea, No Edema, No Palpitations Respiratory : No Cough, No Sputum, No Wheezing, No Smoke Exposure, No Dyspnea Gastrointestinal : No Nausea, No Vomiting, No Diarrhea, No Constipation, No abdominal Pain, No Hematochezia, No Melena Genitourinary : no irregular bleeding, No Dysuria, No Urinary Frequency, No Hematuria, No Urinary Incontinence, No Urgency, No Flank Pain, No Urinary Flow Changes, No Hesitancy Musculoskeletal : generalized myalgias, worse in both legs and bilateral lumbar area Skin : No Skin Lesions, No rash Neuro : No Weakness, No Numbness, No Paresthesias, No Loss of Consciousness, No Dizziness, No Headache Psych : No Anxiety/Panic, No Depression, No SI/HI/AH/VH, No Social Issues, Heme/Lymph: No Bruising, No Bleeding,No Lymphadenopathy Endocrine : No Polyuria, No Polydipsia, No Temperature Intolerance PENDING SALE TO [facility] Past Medical History Medical History Asthma Diabetes HTN (hypertension) Surgical History History of heart artery stent (~03/2019) History of hysterectomy Hx of colonoscopy (~06/2015) Family History Family History Father No problems noted. Mother No problems noted. Other Cancer Diabetes Heart problem Social History Social History Alcohol intake: unknown Smoking Status: Never smoker Smoked in Last 30 Days: No Use of substances other than those prescribed or required for medical reasons: No Advance Directives: No Advance Directives Information Provided: No Physical Exam Vital Signs: Vital Signs: Vital Signs Temp Pulse Resp BP Pulse Ox 09/22/20 07:56 71 18 146/63 H 98 09/22/20 07:07 15 09/22/20 06:14 98.0 F 78 16 158/64 H 98 Body Mass Index 34.3 Appearance: Alert. Oriented X3. No acute distress. Eyes: Pupils equal, round and reactive to light. ENT: Pharynx normal. Neck: Normal inspection. Neck supple. No lymph nodes noted. No crepitus CVS: Normal heart rate and rhythm. Pulses normal. Normal S1 and S2 Respiratory: No respiratory distress. Breath sounds normal. No Wheezing. No rales Abdomen: Soft and nontender. No rigidity. No distention. good BS x4 Skin: Skin warm and dry. Normal skin color. Normal skin turgor. Extremities: No lower extremity edema. No lower extremity edema. No Lacerations. No Rash. Negative straight leg raise bilaterally, patient ambulatory within normal limits Neuro: Oriented X 3. No motor deficit. No sensory deficit. Moving all extermities. No slurred speech. Course Course Course Narrative: I discussed the labs and imaging with the patient, patient's antibiotic will be switched from doxycycline to Levaquin which will cover both respiratory and UTI patient's magnesium was replaced p.o., improved from yesterday, today 1.5 Medical Decision Making Lab Data Result diagrams: 09/22/20 08:34 09/22/20 08:33 Labs: Lab Results 09/22/20 09/22/20 09/22/20 Range/Units 07:09 08:33 08:34 WBC 7.9 (4.8-10.8) X10*3/uL RBC 4.02 L (4.20-5.50) X10*6/uL Hgb 12.4 (12.0-16.0) g/dl Hct 39.0 (37-47) % MCV 97.0 (80-98) fL MCH 30.8 (27.0-33.0) pg MCHC 31.8 (31.0-35.0) g/dl RDW 12.1 (11.0-16.0) % Plt Count 174 (160-400) X10*3/uL MPV 9.3 L (9.4-12.3) fL Immature Gran % (Auto) 0.4 (0.0-0.4) % Neut % (Auto) 61.3 (45-73) % Lymph % (Auto) 22.0 (20-40) % Cavalier % (Auto) 10.0 (2-11) % Eos % (Auto) 5.8 H (0-4) % Baso % (Auto) 0.5 (0-2) % Lymph # (Auto) 1.7 (1.2-4.9) X10*3/uL Cavalier # (Auto) 0.8 (0.1-1.2) X10*3/uL Eos # (Auto) 0.5 H (0.0-0.4) X10*3/uL Baso # (Auto) 0.0 (0.0-0.2) X10*3/uL Abs Immat Gran (auto) 0.03 (0.00-0.03) X10*3/uL Absolute Neuts (auto) 4.9 (2.0-8.3) X10*3/uL Absolute Nucleated RBC 0.000 (0.0-0.012) X10*3/uL Nucleated RBC % (auto) 0.0 (0.0-0.2) /100WBC Sodium 142 (135-145) mmol/L Potassium 4.2 (3.3-5.1) mmol/l Chloride 104 (96-108) mmol/L Carbon Dioxide 28 (22-29) mmol/L Anion Gap 14 (12-20) BUN 11 (9-16) mg/dL Creatinine 0.65 (0.5-1.4) mg/dL Estim Creat Clear Calc 69.9 Estimated GFR > 60 Random Glucose 145 H (60-115) mg/dL Calcium 9.3 (8.4-10.2) mg/dL Magnesium 1.5 L (1.6-2.6) mg/dL Urine Color YELLOW Urine Appearance CLOUDY Urine pH 7.0 (5.0-8.0) Ur Specific [place] 1.015 (1.005-1.025) Urine Protein NEG (NEG-TRACE) MG/DL Urine Glucose (UA) NEG (NEG) MG/DL Urine Ketones NEG (NEG) MG/DL Urine Blood NEG (NEG) Urine Nitrite POS H (NEG) Ur Leukocyte Esterase 1+ H (NEG) Urine RBC 0-2 (0) /HPF Urine WBC 15-29 H (0-4) /HPF Ur Squamous Epith Cells 2+ /LPF Urine Bacteria 4+ /LPF Discharge Plan Discharge Clinical Impression: Hypomagnesemia Urinary tract infection Qualifiers: Urinary tract infection type: site unspecified Hematuria presence: without hematuria Qualified Code(s): N39.0 - Urinary tract infection, site not specified Patient Disposition: Home, Self-Care Instructions: Urinary Tract Infection in Older Adults (ED) Additional Instructions: please stop taking doxycycline. Instead start taking ciprofloxacin which will cover for urinary tract infection and your lungs Prescriptions: New ciprofloxacin HCl 500 mg tablet 500 mg PO Q12H Qty: 14 RF: 0 No Action omeprazole 20 mg capsule,delayed release(DR/EC) 20 mg PO BID 30 Days Qty: 60 RF: 1 metronidazole [Flagyl] 500 mg tablet 500 mg PO BID Qty: 14 RF: 0 levofloxacin 250 mg tablet 250 mg PO DAILY 7 Days Qty: 7 RF: 0 ondansetron 4 mg tablet,disintegrating 4 mg PO Q8H PRN (Reason: nausea and vomiting) Qty: 20 RF: 0 hydrocodone-acetaminophen 5-325 mg tablet 1 tab PO Q6H PRN (Reason: pain) Qty: 7 RF: 0 doxycycline hyclate 100 mg capsule 100 mg PO BID 10 Days Qty: 20 RF: 0 cyclobenzaprine 10 mg tablet 10 mg PO TID PRN (Reason: muscle spasm) Qty: 10 RF: 0 acetaminophen [Tylenol] 325 mg tablet 650 mg PO Q6H PRN (Reason: fever or pain) Qty: 14 RF: 0
[2020-09-22 07:07] VITALS: RESP 15
[2020-09-22] MEDS: Morphine Sulfate 2 MG/ML CARTRIDGE IM (07:07)
[2020-09-22 07:44] LABS: Glucose Urine UA NEG (NEG); Leukocyte Esterase Urine 1+ (NEG); Nitrite Urine POS (NEG); Specific Gravity - Urine 1.015 (1.005-1.025); Urine Blood NEG (NEG); Urine Ketones NEG (NEG); Urine Protein NEG (NEG-TRACE)
[2020-09-22 07:46] LABS: Appearance Urine CLOUDY; Color Urine YELLOW
[2020-09-22 07:56] VITALS: BP 146/63; PULSE 71; RESP 18; O2SAT 98
[2020-09-22 07:58] LABS: Bacteria Urine 4+ /LPF; RBC Urine 0-2 /HPF (0); Squamous Epithelial Cell Urine 2+ /LPF
[2020-09-22] MEDS: levoFLOXacin 500 MG TABLET PO (08:29)
[2020-09-22 08:38] LABS: Basophils Percent Auto 0.5 % (0-2); Eosinophils Absolute Auto 0.5 X10*3/uL (0.0-0.4); Eosinophils Percent Auto 5.8 % (0-4); Hemoglobin 12.4 g/dl (12.0-16.0); Imm Gran Abs Auto 0.03 X10*3/uL (0.00-0.03); Imm Gran Pct Auto 0.4 % (0.0-0.4); Lymphocytes Absolute Auto 1.7 X10*3/uL (1.2-4.9); MANUAL DIFF FLAG NO; Mean Corpuscular HGB Conc 31.8 g/dl (31.0-35.0); Mean Corpuscular Hemoglobin 30.8 pg (27.0-33.0); Mean Platelet Volume 9.3 fL (9.4-12.3); Monocytes Absolute Auto 0.8 X10*3/uL (0.1-1.2); Neutrophils Absolute Auto 4.9 X10*3/uL (2.0-8.3); Neutrophils Percent Auto 61.3 % (45-73); Platelet Count 174 X10*3/uL (160-400); Red Blood Count 4.02 X10*6/uL (4.20-5.50); Red Cell Distribution Width 12.1 % (11.0-16.0); White Blood Count 7.9 X10*3/uL (4.8-10.8)
[2020-09-22 09:09] LABS: Anion Gap 14 (12-20); Blood Urea Nitrogen 11 mg/dL (9-16); Calcium 9.3 mg/dL (8.4-10.2); Carbon Dioxide 28 mmol/L (22-29); Chloride 104 mmol/L (96-108); Creatinine Clr Calc Pharmacy 69.9; Estimated Glomerular Filt Rate > 60; Glucose Random 145 mg/dL (60-115); Potassium 4.2 mmol/l (3.3-5.1); Sodium 142 mmol/L (135-145)
[2020-09-22 10:26] LABS: Magnesium 1.5 mg/dL (1.6-2.6)
[2020-09-22] MEDS: Ketorolac Tromethamine 30 MG/ML VIAL IVPUSH (10:32)
[2020-09-22] MEDS: Magnesium Oxide 400 MG TABLET PO (11:35)
== END 2020-09-22 11:47 | disposition home or self-care (01) ==
PROVIDERS: Emergency Provider Emergency Medicine; PCP Internal Medicine
DX: N39.0 Urinary tract infection, site not specified (principal); E83.42 Hypomagnesemia; J45.909 Unspecified asthma, uncomplicated; M54.5 Low back pain; I10 Essential (primary) hypertension; Z20.828 Contact with and (suspected) exposure to other viral communicable diseases; Z79.899 Other long term (current) drug therapy
CPT/HCPCS: 36415; 80048; 81001; 83735; 85025; 96372; 96374; 99284; J1885; J2270

== ENCOUNTER 2020-09-26 09:56 | Outpatient (REF) | payer MEDICARE, SELFPAY | END 2020-09-26 09:57 | disposition home or self-care (01) | LOC: HO.LAB 09:56 | PROVIDERS: Visit Provider Internal Medicine | DX: Z20.828 Contact with and (suspected) exposure to other viral communicable diseases (principal) | CPT/HCPCS: U0003 ==

== ENCOUNTER 2020-10-13 08:28 | Emergency (ER) | payer MEDICARE, SELFPAY ==
--- NOTE | 2020-10-13 08:50 | ED_ITS ---
HPI - Extremity Injury (Lower) General Chief Complaint: Extremity Problem Stated Complaint: FEET PAIN Time Seen by Provider: 10/13/20 08:50 Source: patient Mode of arrival: ambulatory Limitations: no limitations History of Present Illness HPI Narrative: patient states that she has leg and toe pain for months but now worse in the last 3 days. Patient states that she has diabetes and leg pain. Patient states that her legs and feet are numb. Onset (ago): month(s) Associated symptoms: numbness and tingling Related Data Previous Rx's Medication Instructions Recorded hydrocodone-acetaminophen 1 tab PO Q6H PRN #7 tab 09/02/20 levofloxacin 250 mg PO DAILY 7 Days #7 tab 09/02/20 metronidazole [Flagyl] 500 mg PO BID #14 tab 09/02/20 ondansetron 4 mg PO Q8H PRN #20 tab 09/02/20 omeprazole 20 mg capsule,delayed 20 mg PO BID 30 Days #60 cap 09/08/20 release acetaminophen [Tylenol] 650 mg PO Q6H PRN #14 tab 09/21/20 cyclobenzaprine 10 mg PO TID PRN #10 tab 09/21/20 doxycycline hyclate 100 mg PO BID 10 Days #20 cap 09/21/20 ciprofloxacin HCl 500 mg PO Q12H #14 tab 09/22/20 roflumilast 500 mcg tablet 500 mcg PO QAM #30 tab 10/06/20 gabapentin 100 mg PO BID #20 cap 10/13/20 Allergies Allergy/AdvReac Type Severity Reaction Status Date / Time ampicillin [AMPICILLIN] Allergy Intermediate RASH Verified 09/02/20 08:15 aspirin [Aspirin] Allergy Unknown UNKNOWN Verified 09/02/20 08:15 clarithromycin [From Biaxin] Allergy Unknown UNKNOWN Verified 09/02/20 08:15 penicillin V Allergy Unknown Unknown Verified 09/02/20 08:15 Penicillins Allergy Unknown UNKNOWN Verified 09/02/20 08:15 Motrin Allergy Unknown Unknown Uncoded 09/02/20 08:15 From AVELOX AdvReac Intermediate RASH Uncoded 08/13/20 15:32 Review of Systems Constitutional: Constitutional: Reports no additional constitutional complaints Eyes: Eyes: Reports no additional eye complaints ENT: Denies dizziness Cardiovascular: Cardiovascular: Reports no additional cardiovascular complaints Respiratory: Respiratory: Reports as per HPI Gastrointestinal: Gastrointestinal: Reports no additional gastrointestinal complaints Genitourinary: Genitourinary: Reports no additional female genitourinary complaints Musculoskeletal: Musculoskeletal: Reports no additional musculoskeletal complaints Integumentary/Breasts: Skin/Breast: Denies rash Neurologic: Reports system reviewed and no additional complaints, except as documented, Denies dizziness and Denies Sensory deficit (Neuro) Psychiatric: Psychiatric: Denies anxiety [facility] Past Medical History Medical History Asthma Diabetes HTN (hypertension) Surgical History History of heart artery stent (~03/2019) History of hysterectomy Hx of colonoscopy (~06/2015) Family History Family History Father No problems noted. Mother No problems noted. Other Cancer Diabetes Heart problem Social History Social History Alcohol intake: unknown Smoking Status: Never smoker Advance Directives: Yes Advance Directives Information Provided: Yes Advance Directives on File: No Physical Exam Vital Signs: Vital Signs: Last Vital Signs Temp 97.5 F 10/13/20 08:55 Pulse 88 10/13/20 08:55 Resp 18 10/13/20 08:55 BP 129/65 10/13/20 08:55 Pulse Ox 99 10/13/20 08:55 Body Mass Index 30.7 Const: Other: elderly General: healthy appearing Nutritional Appearance: average body habitus Orientation/consciousness: oriented to person and patient oriented x3 Limitations: no limitations HENMT: Head: Yes normal to inspection Ears: external ears normal General nose exam: Normal external nose present Mouth: Normal oral and palatal mucosa present and oropharynx normal Throat: Yes posterior oropharynx normal Eyes: General: appearance normal, both eyes and all related structures Neck: Other: supple Neck: Yes normal visual inspection Chest: Chest palpation & inspection: normal inspection of the chest Resp: Auscultation: clear to auscultation bilaterally Cardio: Jugular venous distension: no JVD Rate: regular rate Rhythm: regular rhythm Heart sounds: S1 normal heart sound present and S2 normal heart sound present GI: Inspection: Yes normal to inspection Palpation (GI): Soft to palpation, nontender and No hepatosplenomegaly present Auscultation: normal bowel sounds : General: Yes no CVA tenderness Back/Spine/Pelvis: Back: no CVA tenderness Skin: General skin exam: no rashes or lesions noted Neuro: General: oriented to person and patient oriented x3 Cranial nerves: Yes CN's II-XII intact bilaterally Motor exam (neuro): 5/5 motor strength present throughout Sensory Exam: No Sensory deficit (Neuro) Extrem: Other: good bilateral femoral pulses and good DP pulses General: Yes normal to inspection Psych: Appearance: grossly normal Course Course Course Narrative: will check glucose and start gabapentin MDM - Extremity Injury (Lower) MDM Narrative Medical decision making narrative: patient by description has diabetic neuropathy will start on gabapentin Discharge Plan Discharge Clinical Impression: Diabetic autonomic neuropathy Qualifiers: Diabetes mellitus type: type 2 Qualified Code(s): E11.43 - Type 2 diabetes mellitus with diabetic autonomic (poly)neuropathy Patient Disposition: Home, Self-Care Instructions: Diabetic Peripheral Neuropathy (ED), Paresthesia (ED) Prescriptions: New gabapentin 100 mg capsule 100 mg PO BID Qty: 20 RF: 0 No Action omeprazole 20 mg capsule,delayed release(DR/EC) 20 mg PO BID 30 Days Qty: 60 RF: 1 roflumilast [Daliresp] 500 mcg tablet 500 mcg PO QAM Qty: 30 RF: 2 metronidazole [Flagyl] 500 mg tablet 500 mg PO BID Qty: 14 RF: 0 levofloxacin 250 mg tablet 250 mg PO DAILY 7 Days Qty: 7 RF: 0 ondansetron 4 mg tablet,disintegrating 4 mg PO Q8H PRN (Reason: nausea and vomiting) Qty: 20 RF: 0 hydrocodone-acetaminophen 5-325 mg tablet 1 tab PO Q6H PRN (Reason: pain) Qty: 7 RF: 0 doxycycline hyclate 100 mg capsule 100 mg PO BID 10 Days Qty: 20 RF: 0 cyclobenzaprine 10 mg tablet 10 mg PO TID PRN (Reason: muscle spasm) Qty: 10 RF: 0 acetaminophen [Tylenol] 325 mg tablet 650 mg PO Q6H PRN (Reason: fever or pain) Qty: 14 RF: 0 ciprofloxacin HCl 500 mg tablet 500 mg PO Q12H Qty: 14 RF: 0 Referrals: Xenia England MD [Primary Care Provider] - 2 days (must follow up for start of gabapentin for neuropathy)
[2020-10-13 08:55] VITALS: BP 129/65; PULSE 88; RESP 18; TEMP 36.4; O2SAT 99; BMI 30.7
[2020-10-13 09:11] LABS: Glucose, Whole Blood 180 mg/dL (60-115)
== END 2020-10-13 09:25 | disposition home or self-care (01) ==
PROVIDERS: Emergency Provider Emergency Medicine; PCP Internal Medicine
DX: E11.43 Type 2 diabetes mellitus with diabetic autonomic (poly)neuropathy (principal); M79.672 Pain in left foot; M79.671 Pain in right foot; I10 Essential (primary) hypertension; Z79.899 Other long term (current) drug therapy
CPT/HCPCS: 82947; 99283

== ENCOUNTER 2020-11-14 07:50 | Emergency (ER) | payer MEDICARE, SELFPAY ==
[2020-11-14 08:14] VITALS: BP 148/68; PULSE 93; RESP 18; TEMP 35.5; O2SAT 97; BMI 23.4
--- NOTE | 2020-11-14 08:53 | XR_ITS ---
EXAMINATION: XR CHEST CLINICAL INFORMATION: Body aches and cough. COMPARISON: 09/21/2020 and 09/02/2020 portable chest radiographs. TECHNIQUE: Frontal view of the chest was obtained. FINDINGS: Linear markings in the right midlung have increased. Mild bibasilar linear markings are seen with interval decrease of the left lung base. The heart and mediastinal structures are unremarkable. XR/XR chest 1V IMPRESSION: 1. Mild increase in markings in the right midlung could represent atelectasis or an infiltrate. 2. Previously seen left basilar linear markings have decreased. Mild bibasilar linear atelectasis versus scarring.
--- NOTE | 2020-11-14 08:57 | ED_ITS ---
HPI - URI/Sore Throat General Chief Complaint: Upper Respiratory Symptoms Stated Complaint: COVID SYMPTOMS Time Seen by Provider: 11/14/20 08:28 Source: patient Mode of arrival: ambulatory Limitations: language barrier (Uzbek-speaking) History of Present Illness HPI Narrative: 75yoF c PMHx of multivessel CAD, severe COPD, HTN, HLD, DM, Mitral regurgitation whom recently underwent PCI c stent placement to proximal 0M-2 coronary artery in Aug at [facility] presenting to the ED c c/o dry intermittent productive cough c body aches since yesterday. On September 22 patient had a negative COVID swab although her chest x-ray had ground-glass opacities consistent with viral pneumonia. She was prescribed antibiotics and reports she felt better until yesterday where her symptoms started again. Patient denies any dizziness, headache, nausea /vomiting, chest pain, SOB, palpitations or any other symptoms or complaints or concerns at this time. Denies recent travel or sick contacts. Related Data Previous Rx's Medication Instructions Recorded hydrocodone-acetaminophen 1 tab PO Q6H PRN #7 tab 09/02/20 levofloxacin 250 mg PO DAILY 7 Days #7 tab 09/02/20 metronidazole [Flagyl] 500 mg PO BID #14 tab 09/02/20 ondansetron 4 mg PO Q8H PRN #20 tab 09/02/20 acetaminophen [Tylenol] 650 mg PO Q6H PRN #14 tab 09/21/20 cyclobenzaprine 10 mg PO TID PRN #10 tab 09/21/20 doxycycline hyclate 100 mg PO BID 10 Days #20 cap 09/21/20 ciprofloxacin HCl 500 mg PO Q12H #14 tab 09/22/20 roflumilast 500 mcg tablet 500 mcg PO QAM #30 tab 10/06/20 gabapentin 100 mg PO BID #20 cap 10/13/20 omeprazole 20 mg capsule,delayed 20 mg PO BID 30 Days #60 cap 11/12/20 release albuterol sulfate 1 inh INHALATION QID PRN #18 g 11/14/20 cyclobenzaprine 10 mg PO TID PRN #10 tab 11/14/20 doxycycline monohydrate 100 mg PO BID 10 Days #20 cap 11/14/20 Allergies Allergy/AdvReac Type Severity Reaction Status Date / Time ampicillin [AMPICILLIN] Allergy Intermediate RASH Verified 09/02/20 08:15 aspirin [Aspirin] Allergy Unknown UNKNOWN Verified 09/02/20 08:15 clarithromycin [From Biaxin] Allergy Unknown UNKNOWN Verified 09/02/20 08:15 penicillin V Allergy Unknown Unknown Verified 09/02/20 08:15 Penicillins Allergy Unknown UNKNOWN Verified 09/02/20 08:15 Motrin Allergy Unknown Unknown Uncoded 09/02/20 08:15 From AVELOX AdvReac Intermediate RASH Uncoded 08/13/20 15:32 Review of Systems Review of Systems: Constitutional : No Fever, + Chills, + fatigue, + Malaise ENT/Mouth : No sore throat, No runny nose Eyes: No Discharge Cardiovascular : No Chest Pain, No SOB Respiratory : + Cough, + Sputum, No Wheezing, No Smoke Exposure, No Dyspnea Gastrointestinal : No Nausea, No Vomiting, No Diarrhea Genitourinary : No irregular bleeding, No Dysuria, No Urinary Frequency, No Hematuria, No Urinary Incontinence, No Urgency, No Flank Pain, Musculoskeletal : + Myalgia Skin : No rash Neuro : No Headache Yes all other systems are reviewed and are negative [facility] Past Medical History Attestation statement: The following information was validated with the patient. Medical History Asthma Diabetes HTN (hypertension) Surgical History History of heart artery stent (~03/2019) History of hysterectomy Hx of colonoscopy (~06/2015) Family History Family History Father No problems noted. Mother No problems noted. Other Cancer Diabetes Heart problem Social History Social History Alcohol intake: unknown Smoking Status: Never smoker Advance Directives: No Advance Directives Information Provided: Yes Physical Exam Vital Signs: Vital Signs: Last Vital Signs Temp 96 F L 11/14/20 08:14 Pulse 91 11/14/20 11:38 Resp 22 H 11/14/20 11:38 BP 166/74 H 11/14/20 09:23 Pulse Ox 97 11/14/20 11:38 Body Mass Index 23.4 vital signs have been reviewed as normal and appeared to be correct. Blood pressure normal. Heart rate normal. Respiration rate normal. Temperature normal. Oxygen saturation normal. Appearance: Alert. Oriented X3. No acute distress. Head: Normal external exam. Normocephalic. Atraumatic. No Newton signs noted. No raccoon eyes noted Eyes: PERRLA. EOMI. Conjunctiva and sclera normal. Eyelids normal. ENT: EAC normal. TM's Normal. Pharynx normal. Uvula midline. Moist mucous membranes. No trismus noted. No drooling noted. No muffled voice noted. Neck: Normal inspection. Neck supple. FROM. No adenopathy. No meningeal signs. CVS: Normal heart rate and rhythm. Heart sound normal. No murmurs noted. Pulses normal throughout. Respiratory: No respiratory distress. Painless inspiration. Breath sounds normal. No wheezes/rales/rhonchi noted. Chest nontender. No accessory muscle usage noted or decreased air movement noted. Back: No CVA tenderness. Full range of motion noted. Skin: Skin warm and dry. Normal skin color. Normal skin turgor. No rashes/lesions/lacerations noted. Extremities: No lower extremity edema. Extremities exhibit normal range of motion. Extremities nontender. Neuro: Oriented X 3. No motor deficit. No sensory deficit. Reflexes normal. Course Course Course Narrative: 8:52am - 75yoF c PMHx of multivessel CAD, severe COPD, HTN, HLD, DM, Mitral regurgitation whom recently underwent PCI c stent placement to proximal 0M-2 coronary artery in Aug at [facility] presenting to the ED c c/o dry intermittent productive cough c body aches since yesterday. On September 22 patient had a negative COVID swab although her chest x-ray had ground-glass opacities consistent with viral pneumonia. She was prescribed antibiotics and reports she felt better until yesterday where her symptoms started again. - Concern for PNA vs COVID vs Viral syndrome - Plan: Labs, CXR, RSV/FLU/COVID swab then re-evaluate Reevaluation(s) Reevaluation #1: - BUN at 26 although when compared to prior this appears that this is the patient's baseline creatinine is within normal limits. - chest x-ray revealed mild increase in markings in the right mid lung could represent atelectasis or infiltrate and previously seen left basilar linear markings have decreased mild bibasilar linear atelectasis versus scarring. - patient's vitals are within normal limits including oxygen saturation is 97% on room air even with walking trial. COVID/RSV/flu negative. - therefore at this time will DC home with antibiotics and symptomatic treatment along with instructions return if any new or worsening symptoms to follow-up with primary care provider. Patient understands agrees the plan. Time: 12:17 MDM - URI/Sore Throat Medical Records Attestation: I reviewed the patient's medical records. Lab Data Attestation: I reviewed the patient's lab results. Result diagrams: 11/14/20 09:22 11/14/20 09:22 Labs: Lab Results 11/14/20 11/14/20 11/14/20 Range/Units 09:21 09:22 09:22 WBC 10.5 (4.8-10.8) X10*3/uL RBC 3.87 L (4.20-5.50) X10*6/uL Hgb 11.9 L (12.0-16.0) g/dl Hct 36.5 L (37-47) % MCV 94.3 (80-98) fL MCH 30.7 (27.0-33.0) pg MCHC 32.6 (31.0-35.0) g/dl RDW 13.1 (11.0-16.0) % Plt Count 177 (160-400) X10*3/uL MPV 9.4 (9.4-12.3) fL Immature Gran % (Auto) 0.6 H (0.0-0.4) % Neut % (Auto) 72.6 (45-73) % Lymph % (Auto) 14.6 L (20-40) % Latimer % (Auto) 9.4 (2-11) % Eos % (Auto) 2.3 (0-4) % Baso % (Auto) 0.5 (0-2) % Lymph # (Auto) 1.5 (1.2-4.9) X10*3/uL Latimer # (Auto) 1.0 (0.1-1.2) X10*3/uL Eos # (Auto) 0.2 (0.0-0.4) X10*3/uL Baso # (Auto) 0.1 (0.0-0.2) X10*3/uL Abs Immat Gran (auto) 0.06 H (0.00-0.03) X10*3/uL Absolute Neuts (auto) 7.6 (2.0-8.3) X10*3/uL Absolute Nucleated RBC 0.000 (0.0-0.012) X10*3/uL Nucleated RBC % (auto) 0.0 (0.0-0.2) /100WBC Sodium 139 (135-145) mmol/L Potassium 3.9 (3.3-5.1) mmol/l Chloride 104 (96-108) mmol/L Carbon Dioxide 25 (22-29) mmol/L Anion Gap 14 (12-20) BUN 26 H D (9-16) mg/dL Creatinine 0.70 (0.5-1.4) mg/dL Estim Creat Clear Calc 49.8 Estimated GFR > 60 Random Glucose 146 H (60-115) mg/dL Calcium 9.1 (8.4-10.2) mg/dL Ferritin (10-250) ng/mL Lactate Dehydrogenase (122-220) U/L B-Natriuretic Peptide (<100) pg/mL Procalcitonin 0.16 ng/mL Coronavirus (PCR) (Negative) Influenza Type A (PCR) (Negative) Influenza Type B (PCR) (Negative) RSV RNA Qual (PCR) (Negative) 11/14/20 11/14/20 11/14/20 Range/Units 09:22 09:22 09:23 WBC (4.8-10.8) X10*3/uL RBC (4.20-5.50) X10*6/uL Hgb (12.0-16.0) g/dl Hct (37-47) % MCV (80-98) fL MCH (27.0-33.0) pg MCHC (31.0-35.0) g/dl RDW (11.0-16.0) % Plt Count (160-400) X10*3/uL MPV (9.4-12.3) fL Immature Gran % (Auto) (0.0-0.4) % Neut % (Auto) (45-73) % Lymph % (Auto) (20-40) % Latimer % (Auto) (2-11) % Eos % (Auto) (0-4) % Baso % (Auto) (0-2) % Lymph # (Auto) (1.2-4.9) X10*3/uL Latimer # (Auto) (0.1-1.2) X10*3/uL Eos # (Auto) (0.0-0.4) X10*3/uL Baso # (Auto) (0.0-0.2) X10*3/uL Abs Immat Gran (auto) (0.00-0.03) X10*3/uL Absolute Neuts (auto) (2.0-8.3) X10*3/uL Absolute Nucleated RBC (0.0-0.012) X10*3/uL Nucleated RBC % (auto) (0.0-0.2) /100WBC Sodium (135-145) mmol/L Potassium (3.3-5.1) mmol/l Chloride (96-108) mmol/L Carbon Dioxide (22-29) mmol/L Anion Gap (12-20) BUN (9-16) mg/dL Creatinine (0.5-1.4) mg/dL Estim Creat Clear Calc Estimated GFR Random Glucose (60-115) mg/dL Calcium (8.4-10.2) mg/dL Ferritin 172 (10-250) ng/mL Lactate Dehydrogenase 185 (122-220) U/L B-Natriuretic Peptide 51 (<100) pg/mL Procalcitonin ng/mL Coronavirus (PCR) NEGATIVE (Negative) Influenza Type A (PCR) NEGATIVE (Negative) Influenza Type B (PCR) NEGATIVE (Negative) RSV RNA Qual (PCR) NEGATIVE (Negative) Imaging Data Chest x-ray: Attestation: I personally reviewed and interpreted this imaging study as follows: Radiologist's impression: [address] [address] XRay Report Signed Patient: Xenia White MMR#: [id number] : 5Acct:[id number] Age/Sex: 75 / FADM Date: 11/14/20 Loc: HO.ED Attending Dr: Ordering Physician: EMILY ERIC Date of Service: 11/14/20 Procedure(s): XR chest 1V Accession Number(s): [id number] cc: EMILY ERIC~ EXAMINATION: XR CHEST CLINICAL INFORMATION: Body aches and cough. COMPARISON: 09/21/2020 and 09/02/2020 portable chest radiographs. TECHNIQUE: Frontal view of the chest was obtained. FINDINGS: Linear markings in the right midlung have increased. Mild bibasilar linear markings are seen with interval decrease of the left lung base. The heart and mediastinal structures are unremarkable. XR/XR chest 1V IMPRESSION: 1. Mild increase in markings in the right midlung could represent atelectasis or an infiltrate. 2. Previously seen left basilar linear markings have decreased. Mild bibasilar linear atelectasis versus scarring. Discharge Plan Discharge Clinical Impression: Pneumonia Patient Disposition: Home, Self-Care Instructions: Community Acquired Pneumonia (ED) Prescriptions: New cyclobenzaprine 10 mg tablet 10 mg PO TID PRN (Reason: muscle spasm) Qty: 10 RF: 0 doxycycline monohydrate 100 mg capsule 100 mg PO BID 10 Days Qty: 20 RF: 0 albuterol sulfate 90 mcg/actuation HFA aerosol inhaler 1 inh inhalation QID PRN (Reason: shortness of breath or wheezing) Qty: 18 RF: 0 Continued cyclobenzaprine 10 mg tablet 10 mg PO TID PRN (Reason: muscle spasm) Qty: 10 RF: 0 No Action roflumilast [Daliresp] 500 mcg tablet 500 mcg PO QAM Qty: 30 RF: 2 omeprazole 20 mg capsule,delayed release(DR/EC) 20 mg PO BID 30 Days Qty: 60 RF: 5 metronidazole [Flagyl] 500 mg tablet 500 mg PO BID Qty: 14 RF: 0 levofloxacin 250 mg tablet 250 mg PO DAILY 7 Days Qty: 7 RF: 0 ondansetron 4 mg tablet,disintegrating 4 mg PO Q8H PRN (Reason: nausea and vomiting) Qty: 20 RF: 0 hydrocodone-acetaminophen 5-325 mg tablet 1 tab PO Q6H PRN (Reason: pain) Qty: 7 RF: 0 doxycycline hyclate 100 mg capsule 100 mg PO BID 10 Days Qty: 20 RF: 0 acetaminophen [Tylenol] 325 mg tablet 650 mg PO Q6H PRN (Reason: fever or pain) Qty: 14 RF: 0 ciprofloxacin HCl 500 mg tablet 500 mg PO Q12H Qty: 14 RF: 0 gabapentin 100 mg capsule 100 mg PO BID Qty: 20 RF: 0 Referrals: Xenia Gole MD [Primary Care Provider] - 2 days Print Language: Uzbek
[2020-11-14 09:23] VITALS: BP 166/74; PULSE 94; RESP 14; O2SAT 94
[2020-11-14 09:36] LABS: Basophils Absolute Auto 0.1 X10*3/uL (0.0-0.2); Basophils Percent Auto 0.5 % (0-2); Eosinophils Absolute Auto 0.2 X10*3/uL (0.0-0.4); Eosinophils Percent Auto 2.3 % (0-4); Hematocrit 36.5 % (37-47); Hemoglobin 11.9 g/dl (12.0-16.0); Imm Gran Abs Auto 0.06 X10*3/uL (0.00-0.03); Imm Gran Pct Auto 0.6 % (0.0-0.4); Lymphocytes Absolute Auto 1.5 X10*3/uL (1.2-4.9); Lymphocytes Percent Auto 14.6 % (20-40); MANUAL DIFF FLAG NO; Mean Corpuscular HGB Conc 32.6 g/dl (31.0-35.0); Mean Corpuscular Hemoglobin 30.7 pg (27.0-33.0); Mean Corpuscular Volume 94.3 fL (80-98); Mean Platelet Volume 9.4 fL (9.4-12.3); Monocytes Percent Auto 9.4 % (2-11); Neutrophils Absolute Auto 7.6 X10*3/uL (2.0-8.3); Neutrophils Percent Auto 72.6 % (45-73); Platelet Count 177 X10*3/uL (160-400); Red Blood Count 3.87 X10*6/uL (4.20-5.50); Red Cell Distribution Width 13.1 % (11.0-16.0); White Blood Count 10.5 X10*3/uL (4.8-10.8)
[2020-11-14 10:40] LABS: Influenza A PCR NEGATIVE (Negative); Influenza B PCR NEGATIVE (Negative); Resp Syncy Virus RNA Qual PCR NEGATIVE (Negative); SARS COV2 PCR INHOUSE NEGATIVE (Negative)
[2020-11-14] MEDS: Acetaminophen 325 MG TABLET 975 MG PO (10:55)
[2020-11-14 11:06] LABS: Lactate Dehydrogenase 185 U/L (122-220)
[2020-11-14 11:07] LABS: Anion Gap 14 (12-20); Blood Urea Nitrogen 26 mg/dL (9-16); Calcium 9.1 mg/dL (8.4-10.2); Carbon Dioxide 25 mmol/L (22-29); Chloride 104 mmol/L (96-108); Creatinine Clr Calc Pharmacy 49.8; Estimated Glomerular Filt Rate > 60; Glucose Random 146 mg/dL (60-115); Potassium 3.9 mmol/l (3.3-5.1); Sodium 139 mmol/L (135-145)
[2020-11-14 11:15] LABS: Procalcitonin 0.16 ng/mL
[2020-11-14 11:25] LABS: Ferritin 172 ng/mL (10-250)
[2020-11-14 11:34] LABS: B Type Natriuretic Peptide 51 pg/mL (<100)
[2020-11-14 11:38] VITALS: PULSE 91; RESP 22; O2SAT 97
== END 2020-11-14 12:15 | disposition home or self-care (01) ==
PROVIDERS: Physician Assistant Medical; Emergency Provider Emergency Medicine; PCP Internal Medicine
DX: J18.9 Pneumonia, unspecified organism (principal); Z20.828 Contact with and (suspected) exposure to other viral communicable diseases; E11.9 Type 2 diabetes mellitus without complications; I10 Essential (primary) hypertension; Z86.19 Personal history of other infectious and parasitic diseases
CPT/HCPCS: 0241U; 71045; 80048; 82728; 83615; 83880; 84145; 85025; 99283

== ENCOUNTER → 2020-11-30 13:10 | Outpatient (BNVA) | payer MEDICARE, SELFPAY | PROVIDERS: PCP Internal Medicine; Visit Provider Hospitalist | DX: J45.909 Unspecified asthma, uncomplicated (principal); J84.9 Interstitial pulmonary disease, unspecified; J18.0 Bronchopneumonia, unspecified organism; R91.8 Other nonspecific abnormal finding of lung field; Z79.899 Other long term (current) drug therapy | CPT/HCPCS: 99212 ==

== ENCOUNTER 2020-12-08 11:15 | Emergency (ER) | payer MEDICARE, SELFPAY ==
[2020-12-08] VITALS (7 sets, daily range): BP systolic 89–122; BP diastolic 47–62; PULSE 80–106; RESP 18–20; TEMP 36.6; O2SAT 97–99; BMI 30.4
--- NOTE | 2020-12-08 12:32 | ECG_ITS ---
Test Reason : [id number] Blood Pressure : / mmHG Vent. Rate : 109 BPM Atrial Rate : 109 BPM P-R Int : 140 ms QRS Dur : 072 ms QT Int : 348 ms P-R-T Axes : 020 040 074 degrees QTc Int : 468 ms Sinus tachycardia Nonspecific ST abnormality Abnormal ECG When compared with ECG of 21-SEP-2020 09:47, No significant change was found Referred By: Nicole Duarte Electronically Signed By:MIGUEL CONNOLLY MD
--- NOTE | 2020-12-08 12:32 | XR_ITS ---
EXAMINATION: XR CHEST CLINICAL INFORMATION: Shortness of breath COMPARISON: Previous chest x-ray most recent October 2020 TECHNIQUE: Frontal view of the chest was obtained. FINDINGS: The cardiac and mediastinal contours are stable. There is scarring or subsegmental atelectasis seen in the right midlung extending to the pulmonary hilum that is stable. The lungs are otherwise clear. There is no pleural effusion or pneumothorax. There is an old left clavicle fracture. XR/XR chest 1V IMPRESSION: No evidence for acute disease in the chest. Stable linear scarring or chronic subsegmental atelectasis in the right midlung extending to the hilum.
--- NOTE | 2020-12-08 12:53 | ED_ITS ---
HPI - General Adult General Chief complaint: General Medical Stated complaint: lung pain Time Seen by Provider: 12/08/20 12:09 Source: patient Mode of arrival: ambulatory History of Present Illness HPI narrative: 75-year-old female with a past medical history of multivessel CAD, severe COPD, HTN, HLD, diabetes, mitral regurg S/P PCI with stent placement, previously with pneumonia on doxycycline on 11/14, presenting to the ED complaining productive cough, SOB, myalgias, positional room spinning dizziness since yesterday. Also reports fever, chills, and generalized fatigue. Denies chest pain, abdominal pain, nausea/vomiting/diarrhea, LE edema, sick contacts Onset (ago): day(s) Related Data Home Medications Medication Instructions Recorded Confirmed aspirin 81 mg tablet,delayed 81 mg PO DAILY 11/30/20 11/30/20 release atorvastatin 80 mg tablet 80 mg PO QAM 11/30/20 11/30/20 budesonide 0.5 mg/2 mL suspension mg INHALATION BID 11/30/20 11/30/20 for nebulization calcium carbonate 600 mg (1,500 0 tab PO 11/30/20 11/30/20 mg)-vitamin D3 200 unit tablet carvedilol 3.125 mg tablet 3.125 mg PO BID 11/30/20 11/30/20 clopidogrel 75 mg tablet 75 mg PO QAM 11/30/20 11/30/20 diltiazem HCl 240 mg 240 mg PO DAILY 11/30/20 11/30/20 capsule,extended release 24 hr enalapril maleate 10 mg tablet 10 mg PO QAM 11/30/20 11/30/20 fexofenadine 180 mg tablet 180 mg PO DAILY 11/30/20 11/30/20 fluticasone fur. 100 mcg-umeclid ea INHALATION 11/30/20 11/30/20 62.5 mcg-vilant 25 mcg inhalat.powder fluticasone propionate 50 1 - 2 spray INTRANASAL DAILY PRN 11/30/20 11/30/20 mcg/actuation nasal spray,suspension gabapentin 300 mg capsule 300 mg PO TID 11/30/20 11/30/20 glipizide 10 mg tablet 10 mg PO QAM 11/30/20 11/30/20 insulin glargine 100 unit/mL (3 42 unit SUBCUT BEDTIME 11/30/20 11/30/20 mL) subcutaneous pen ipratropium 0.5 mg-albuterol 3 mg ml INHALATION QID 11/30/20 11/30/20 (2.5 mg base)/3 mL nebulization soln isosorbide mononitrate 60 mg 60 mg PO QAM 11/30/20 11/30/20 tablet,extended release 24 hr metformin 500 mg tablet,extended 1,000 mg PO 11/30/20 11/30/20 release 24 hr multivitamin with iron 1 tab PO DAILY 11/30/20 11/30/20 prednisone 10 mg tablet 0 mg PO 11/30/20 11/30/20 zafirlukast 20 mg tablet 20 mg PO BID 11/30/20 11/30/20 Previous Rx's Medication Instructions Recorded hydrocodone-acetaminophen 1 tab PO Q6H PRN #7 tab 09/02/20 levofloxacin 250 mg PO DAILY 7 Days #7 tab 09/02/20 metronidazole [Flagyl] 500 mg PO BID #14 tab 09/02/20 ondansetron 4 mg PO Q8H PRN #20 tab 09/02/20 acetaminophen [Tylenol] 650 mg PO Q6H PRN #14 tab 09/21/20 cyclobenzaprine 10 mg PO TID PRN #10 tab 09/21/20 doxycycline hyclate 100 mg PO BID 10 Days #20 cap 09/21/20 ciprofloxacin HCl 500 mg PO Q12H #14 tab 09/22/20 roflumilast 500 mcg tablet 500 mcg PO QAM #30 tab 10/06/20 gabapentin 100 mg PO BID #20 cap 10/13/20 omeprazole 20 mg capsule,delayed 20 mg PO BID 30 Days #60 cap 11/12/20 release albuterol sulfate 1 inh INHALATION QID PRN #18 g 11/14/20 cyclobenzaprine 10 mg PO TID PRN #10 tab 11/14/20 doxycycline monohydrate 100 mg PO BID 10 Days #20 cap 11/14/20 azithromycin 250 mg tablet 250 mg PO 3XW 28 Days #12 tab 11/30/20 fluticasone fur. 200 mcg-umeclid 1 inh INHALATION DAILY 30 Days #60 11/30/20 62.5 mcg-vilant 25 mcg ea inhalat.powder benzonatate [Tessalon Perles] 100 mg PO TID PRN #10 cap 12/08/20 doxycycline hyclate 100 mg PO BID 10 Days #20 tab 12/08/20 prednisone 40 mg PO DAILY 4 Days #8 tab 12/08/20 Allergies Allergy/AdvReac Type Severity Reaction Status Date / Time aspirin [Aspirin] Allergy Severe Rash Verified 11/30/20 13:53 clarithromycin [From Biaxin] Allergy Severe Rash Verified 11/30/20 13:53 Penicillins Allergy Severe Rash Verified 11/30/20 13:53 ampicillin [AMPICILLIN] Allergy Intermediate RASH Verified 11/30/20 13:53 Motrin Allergy Unknown Rash Uncoded 11/30/20 13:53 From AVELOX AdvReac Intermediate RASH Uncoded 11/30/20 13:53 Review of Systems Review of Systems: Constitutional: No Weight loss, No Fever, No Chills, No Night Sweats, +Fatigue, +Malaise Cardiovascular: No Chest Pain, +SOB, No Dyspnea on Exertion, No Orthopnea, No Edema, No Palpitations Respiratory: + Cough, +Sputum, No Wheezing, No Smoke Exposure, +Dyspnea Gastrointestinal: No Nausea, No Vomiting, No Diarrhea, No Constipation, No Abdominal pain Genitourinary: No Dysuria, No Urinary Frequency, No Hematuria Musculoskeletal: No joint pain, +Myalgias, No Joint Swelling Skin: No Skin Lesions, No rash Neuro: +Weakness, No Numbness, No Paresthesias, No Loss of Consciousness, No Dizziness, +Headache Yes all other systems are reviewed and are negative PMFSH Past Medical History Attestation statement: The following information was validated with the patient. Medical History (Updated 12/08/20 @ 18:04 by MARILEE Sun) Asthma Bronchopneumonia Diabetes HTN (hypertension) ILD (interstitial lung disease) Pulmonary nodules Surgical History History of heart artery stent (~03/2019) History of hysterectomy Hx of colonoscopy (~06/2015) Family History Family History Father No problems noted. Mother No problems noted. Other Cancer Diabetes Heart problem Social History Social History Alcohol intake: unknown Smoking Status: Never smoker Advance Directives: No Advance Directives Information Provided: No Physical Exam Vital Signs: Vital Signs: Last Vital Signs Temp 98 F 12/08/20 14:00 Pulse 90 12/08/20 14:00 Resp 18 12/08/20 14:00 BP 122/62 12/08/20 14:00 Pulse Ox 97 12/08/20 16:12 Body Mass Index 30.4 Const: General: cooperative, healthy appearing and no acute distress Orientation/consciousness: patient oriented x3 Limitations: no limitations HENMT: Head: Yes normal to inspection Ears: hearing grossly normal bilaterally General nose exam: Normal external nose present Face and sinus: Yes normal facial exam Throat: Yes posterior oropharynx normal and Yes uvula midline Eyes: General: appearance normal, both eyes and all related structures Pupils: Equal, round and reactive pupils present EOM: EOMs intact bilaterally Neck: Neck: Yes normal visual inspection, Yes no lymphadenopathy and Yes no meningeal signs Resp: Effort & Inspection: normal respiratory effort Auscultation: no wheezes and diminished lung sounds (Bibasilar) Cardio: Rate: regular rate Heart sounds: S1 normal heart sound present and S2 normal heart sound present GI: Inspection: Yes normal to inspection Palpation (GI): Soft to palpation, nontender, no guarding and not rigid Skin: Rashes: no rashes Wounds: no wounds Neuro: General: patient oriented x3, gait normal, tone normal, moves all extremities, no meningeal signs, no focal motor deficits and CN's II-XI intact bilaterally Cranial nerves: Yes Equal, round and reactive pupils present Gait exam (Neuro): Normal gait present Motor exam (neuro): 5/5 motor strength present throughout and Pronator motor function not present Coordination: fthzop-av-dxce test normal Extrem: General: Yes normal to inspection Course Course Course Narrative: * Glucose 325, no anion gap, AST/ALT chronically elevated, LDH/CRP elevated, Initial troponin 62.2, EKG without ischemic changes > will obtain 3hr repeat. Likely demand * BNP chronically elevated but higher than normal * COVID-19 positive, CXR unremarkable > will obtain chest CT. Orthostatic vital signs negative * 1541-lactic acid negative. Chest CT showing old findings as well as new ground-glass attenuation suspicious for COVID-19 infection > IV Decadron and doxycycline ordered. Patient ambulated in the ED with pulse ox monitor maintaining saturations 97% on room air. 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 Will send doxycycline and prednisone to pharmacy for patient. Is to follow up with her PCP Medical Decision Making MDM Narrative Medical decision making narrative: 75-year-old female with a past medical history of multivessel CAD, severe COPD, HTN, HLD, diabetes, mitral regurg S/P PCI with stent placement, previously with pneumonia on doxycycline on 11/14, presenting to the ED complaining productive cough, SOB, myalgias, positional room spinning dizziness since yesterday. On exam mildly tachycardic, hypotensive, nontoxic appearing, lungs are decreased breath sounds bibasilar, no focal neuro deficits. Concern for viral syndrome/COVID-19 vs ? Pneumonia vs dehydration vs metabolic abnormalities. Low concern for ICH, dizziness likely from volume status/vertigo or PE as patient is anticoagulated Low concern for severe sepsis at this time Plan: EKG, labs, UA, CXR, COVID-19 testing, IVF, orthostatics, reassess Lab Data Result diagrams: 12/08/20 13:07 12/08/20 13:07 Labs: Lab Results 12/08/20 12/08/20 12/08/20 Range/Units 12:26 13:07 13:07 WBC 6.1 (4.8-10.8) X10*3/uL RBC 4.00 L (4.20-5.50) X10*6/uL Hgb 12.1 (12.0-16.0) g/dl Hct 38.5 (37-47) % MCV 96.3 (80-98) fL MCH 30.3 (27.0-33.0) pg MCHC 31.4 (31.0-35.0) g/dl RDW 14.1 (11.0-16.0) % Plt Count 142 L (160-400) X10*3/uL MPV 9.9 (9.4-12.3) fL Immature Gran % (Auto) 1.0 H (0.0-0.4) % Neut % (Auto) 71.0 (45-73) % Lymph % (Auto) 16.1 L (20-40) % [place] % (Auto) 10.2 (2-11) % Eos % (Auto) 1.5 (0-4) % Baso % (Auto) 0.2 (0-2) % Lymph # (Auto) 1.0 L (1.2-4.9) X10*3/uL [place] # (Auto) 0.6 (0.1-1.2) X10*3/uL Eos # (Auto) 0.1 (0.0-0.4) X10*3/uL Baso # (Auto) 0.0 (0.0-0.2) X10*3/uL Abs Immat Gran (auto) 0.06 H (0.00-0.03) X10*3/uL Absolute Neuts (auto) 4.3 (2.0-8.3) X10*3/uL Absolute Nucleated RBC 0.000 (0.0-0.012) X10*3/uL Nucleated RBC % (auto) 0.0 (0.0-0.2) /100WBC Smear Tech's Comments Not Reportable Hold Blue Top Sodium 137 (135-145) mmol/L Potassium 4.3 (3.3-5.1) mmol/l Chloride 99 (96-108) mmol/L Carbon Dioxide 26 (22-29) mmol/L Anion Gap 16 (12-20) BUN 11 D (9-16) mg/dL Creatinine 0.92 (0.5-1.4) mg/dL Estim Creat Clear Calc 46.3 Estimated GFR 60 Random Glucose 325 H D (60-115) mg/dL Lactic Acid (0.5-2.0) mmol/L Calcium 9.3 (8.4-10.2) mg/dL Magnesium 1.6 (1.6-2.6) mg/dL Ferritin 72 (10-250) ng/mL Total Bilirubin 0.8 (0.0-1.0) mg/dL Direct Bilirubin 0.3 (0.0-0.5) mg/dL AST 51 H (5-31) U/L ALT 73 H (0-31) U/L Alkaline Phosphatase 65 D (39-117) U/L Lactate Dehydrogenase 313 H (122-220) U/L Troponin I High Sens (<3.5-17.0) ng/L C-Reactive Protein 1.38 H (< or = 0.50) mg/dL B-Natriuretic Peptide (<100) pg/mL Total Protein 6.8 (6.5-8.0) g/dL Albumin 4.1 (3.5-5.0) g/dL Procalcitonin ng/mL COVID-19 (PAUL) Positive A (Negative) COVID-19 Clin Com See Note 12/08/20 12/08/20 12/08/20 Range/Units 13:07 13:07 13:07 WBC (4.8-10.8) X10*3/uL RBC (4.20-5.50) X10*6/uL Hgb (12.0-16.0) g/dl Hct (37-47) % MCV (80-98) fL MCH (27.0-33.0) pg MCHC (31.0-35.0) g/dl RDW (11.0-16.0) % Plt Count (160-400) X10*3/uL MPV (9.4-12.3) fL Immature Gran % (Auto) (0.0-0.4) % Neut % (Auto) (45-73) % Lymph % (Auto) (20-40) % [place] % (Auto) (2-11) % Eos % (Auto) (0-4) % Baso % (Auto) (0-2) % Lymph # (Auto) (1.2-4.9) X10*3/uL [place] # (Auto) (0.1-1.2) X10*3/uL Eos # (Auto) (0.0-0.4) X10*3/uL Baso # (Auto) (0.0-0.2) X10*3/uL Abs Immat Gran (auto) (0.00-0.03) X10*3/uL Absolute Neuts (auto) (2.0-8.3) X10*3/uL Absolute Nucleated RBC (0.0-0.012) X10*3/uL Nucleated RBC % (auto) (0.0-0.2) /100WBC Smear Tech's Comments Hold Blue Top SEE NOTE Sodium (135-145) mmol/L Potassium (3.3-5.1) mmol/l Chloride (96-108) mmol/L Carbon Dioxide (22-29) mmol/L Anion Gap (12-20) BUN (9-16) mg/dL Creatinine (0.5-1.4) mg/dL Estim Creat Clear Calc Estimated GFR Random Glucose (60-115) mg/dL Lactic Acid (0.5-2.0) mmol/L Calcium (8.4-10.2) mg/dL Magnesium (1.6-2.6) mg/dL Ferritin (10-250) ng/mL Total Bilirubin (0.0-1.0) mg/dL Direct Bilirubin (0.0-0.5) mg/dL AST (5-31) U/L ALT (0-31) U/L Alkaline Phosphatase (39-117) U/L Lactate Dehydrogenase (122-220) U/L Troponin I High Sens 62.2 H D (<3.5-17.0) ng/L C-Reactive Protein (< or = 0.50) mg/dL B-Natriuretic Peptide 343 H (<100) pg/mL Total Protein (6.5-8.0) g/dL Albumin (3.5-5.0) g/dL Procalcitonin 0.14 ng/mL COVID-19 (PAUL) (Negative) COVID-19 Clin Com 12/08/20 12/08/20 Range/Units 14:16 16:50 WBC (4.8-10.8) X10*3/uL RBC (4.20-5.50) X10*6/uL Hgb (12.0-16.0) g/dl Hct (37-47) % MCV (80-98) fL MCH (27.0-33.0) pg MCHC (31.0-35.0) g/dl RDW (11.0-16.0) % Plt Count (160-400) X10*3/uL MPV (9.4-12.3) fL Immature Gran % (Auto) (0.0-0.4) % Neut % (Auto) (45-73) % Lymph % (Auto) (20-40) % [place] % (Auto) (2-11) % Eos % (Auto) (0-4) % Baso % (Auto) (0-2) % Lymph # (Auto) (1.2-4.9) X10*3/uL [place] # (Auto) (0.1-1.2) X10*3/uL Eos # (Auto) (0.0-0.4) X10*3/uL Baso # (Auto) (0.0-0.2) X10*3/uL Abs Immat Gran (auto) (0.00-0.03) X10*3/uL Absolute Neuts (auto) (2.0-8.3) X10*3/uL Absolute Nucleated RBC (0.0-0.012) X10*3/uL Nucleated RBC % (auto) (0.0-0.2) /100WBC Smear Tech's Comments Hold Blue Top Sodium (135-145) mmol/L Potassium (3.3-5.1) mmol/l Chloride (96-108) mmol/L Carbon Dioxide (22-29) mmol/L Anion Gap (12-20) BUN (9-16) mg/dL Creatinine (0.5-1.4) mg/dL Estim Creat Clear Calc Estimated GFR Random Glucose (60-115) mg/dL Lactic Acid 1.5 (0.5-2.0) mmol/L Calcium (8.4-10.2) mg/dL Magnesium (1.6-2.6) mg/dL Ferritin (10-250) ng/mL Total Bilirubin (0.0-1.0) mg/dL Direct Bilirubin (0.0-0.5) mg/dL AST (5-31) U/L ALT (0-31) U/L Alkaline Phosphatase (39-117) U/L Lactate Dehydrogenase (122-220) U/L Troponin I High Sens 48.8 H (<3.5-17.0) ng/L C-Reactive Protein (< or = 0.50) mg/dL B-Natriuretic Peptide (<100) pg/mL Total Protein (6.5-8.0) g/dL Albumin (3.5-5.0) g/dL Procalcitonin ng/mL COVID-19 (PAUL) (Negative) COVID-19 Clin Com Discharge Plan Discharge Clinical Impression: Pneumonia due to COVID-19 virus Patient Disposition: Home, Self-Care Instructions: COVID-19 (Coronavirus Disease 2019) (ED) Additional Instructions: You have COVID pneumonia. He tested positive for COVID-19. You need to self i solate for 14 days. Doxycycline as an antibiotic, take as prescribed. In addition take prednisone which is a steroid. Use albuterol inhaler that was supplied you in the emergency department. Tessalon Perles are for coughing, take as needed. Call your doctor. Take Tylenol and Motrin at home for fever/body aches. If her symptoms persist or worsen you develop constant worsening shortness of breath, chest pain, or fever unresolved with medications return to the ED Tiene neumon?a COVID. Long positivo por COVID-19. Debe aislarse por s? mismo kushal 14 d?as. Doxiciclina josué antibi?tameka, kimi seg?n lo prescrito. Adem?s, tome prednisona, que es un esteroide. Use el inhalador de albuterol que se le suministr? en el departamento de emergencias. Tessalon Perles es para toser, t?[place] seg?n sea necesario. Llame a martinez m?dico. [place] Tylenol y Motrin en casa para la fiebre / yasmine corporales. Si carole s?ntomas persisten o empeoran, desarrolla dificultad para respirar que empeora constantemente, dolor en el pecho o fiebre sin resolver con medicamentos, regrese al servicio de urgencias Prescriptions: New doxycycline hyclate 100 mg tablet 100 mg PO BID 10 Days Qty: 20 RF: 0 benzonatate [Tessalon Perles] 100 mg capsule 100 mg PO TID PRN (Reason: cough) Qty: 10 RF: 0 prednisone 20 mg tablet 40 mg PO DAILY 4 Days Qty: 8 RF: 0 No Action roflumilast [Daliresp] 500 mcg tablet 500 mcg PO QAM Qty: 30 RF: 2 omeprazole 20 mg capsule,delayed release(DR/EC) 20 mg PO BID 30 Days Qty: 60 RF: 5 metronidazole [Flagyl] 500 mg tablet 500 mg PO BID Qty: 14 RF: 0 levofloxacin 250 mg tablet 250 mg PO DAILY 7 Days Qty: 7 RF: 0 ondansetron 4 mg tablet,disintegrating 4 mg PO Q8H PRN (Reason: nausea and vomiting) Qty: 20 RF: 0 hydrocodone-acetaminophen 5-325 mg tablet 1 tab PO Q6H PRN (Reason: pain) Qty: 7 RF: 0 cyclobenzaprine 10 mg tablet 10 mg PO TID PRN (Reason: muscle spasm) Qty: 10 RF: 0 doxycycline monohydrate 100 mg capsule 100 mg PO BID 10 Days Qty: 20 RF: 0 albuterol sulfate 90 mcg/actuation HFA aerosol inhaler 1 inh inhalation QID PRN (Reason: shortness of breath or wheezing) Qty: 18 RF: 0 doxycycline hyclate 100 mg capsule 100 mg PO BID 10 Days Qty: 20 RF: 0 cyclobenzaprine 10 mg tablet 10 mg PO TID PRN (Reason: muscle spasm) Qty: 10 RF: 0 acetaminophen [Tylenol] 325 mg tablet 650 mg PO Q6H PRN (Reason: fever or pain) Qty: 14 RF: 0 ciprofloxacin HCl 500 mg tablet 500 mg PO Q12H Qty: 14 RF: 0 gabapentin 100 mg capsule 100 mg PO BID Qty: 20 RF: 0 prednisone 10 mg tablet 0 mg PO RF: 0 Trelegy Ellipta 100-62.5-25 mcg blister with device inhalation RF: 0 Lantus Solostar U-100 Insulin 100 unit/mL (3 mL) insulin pen 42 unit subcut BEDTIME RF: 0 multivitamin with iron Tablet 1 tab PO DAILY RF: 0 metformin 500 mg tablet extended release 24 hr 1,000 mg PO RF: 0 zafirlukast 20 mg tablet 20 mg PO BID RF: 0 isosorbide mononitrate 60 mg tablet extended release 24 hr 60 mg PO QAM RF: 0 carvedilol 3.125 mg tablet 3.125 mg PO BID RF: 0 diltiazem HCl 240 mg capsule,extended release 24hr 240 mg PO DAILY RF: 0 atorvastatin 80 mg tablet 80 mg PO QAM RF: 0 ipratropium-albuterol 0.5 mg-3 mg(2.5 mg base)/3 mL solution for nebulization inhalation QID RF: 0 clopidogrel 75 mg tablet 75 mg PO QAM RF: 0 fluticasone propionate 50 mcg/actuation spray,suspension 1 - 2 spray intranasal DAILY PRNRF: 0 aspirin 81 mg tablet,delayed release (DR/EC) 81 mg PO DAILY RF: 0 calcium carbonate-vitamin D3 600 mg(1,500mg) -200 unit tablet 0 tab PO RF: 0 fexofenadine 180 mg tablet 180 mg PO DAILY RF: 0 glipizide 10 mg tablet 10 mg PO QAM RF: 0 enalapril maleate 10 mg tablet 10 mg PO QAM RF: 0 budesonide 0.5 mg/2 mL suspension for nebulization inhalation BID RF: 0 gabapentin 300 mg capsule 300 mg PO TID RF: 0 azithromycin 250 mg tablet 250 mg PO 3XW 28 Days Qty: 12 RF: 6 Trelegy Ellipta 200-62.5-25 mcg blister with device 1 inh inhalation DAILY 30 Days Qty: 60 RF: 11 Referrals: Xenia Goel MD [Primary Care Provider] - 2 days Print Language: Trinidadian
[2020-12-08] MEDS: Albuterol Sulfate 90 MCG 8 GM INHALER 4 PUFF INHALE (12:55)
[2020-12-08 13:19] LABS: Hematocrit 38.5 % (37-47); Hemoglobin 12.1 g/dl (12.0-16.0); Imm Gran Abs Auto 0.06 X10*3/uL (0.00-0.03); MANUAL DIFF FLAG SCAN; Mean Corpuscular HGB Conc 31.4 g/dl (31.0-35.0); Mean Platelet Volume 9.9 fL (9.4-12.3); PLT CLUMP 1; SCAN SMEAR FLAG 1
[2020-12-08 13:20] LABS: Basophils Percent Auto 0.2 % (0-2); Eosinophils Absolute Auto 0.1 X10*3/uL (0.0-0.4); Eosinophils Percent Auto 1.5 % (0-4); Lymphocytes Percent Auto 16.1 % (20-40); Mean Corpuscular Hemoglobin 30.3 pg (27.0-33.0); Mean Corpuscular Volume 96.3 fL (80-98); Monocytes Absolute Auto 0.6 X10*3/uL (0.1-1.2); Monocytes Percent Auto 10.2 % (2-11); Neutrophils Absolute Auto 4.3 X10*3/uL (2.0-8.3); Platelet Count 142 X10*3/uL (160-400); Red Cell Distribution Width 14.1 % (11.0-16.0); White Blood Count 6.1 X10*3/uL (4.8-10.8)
[2020-12-08 13:46] LABS: COVID-19 Test Positive (Negative); IDNOW Serial# 9DD0AD1C
[2020-12-08 13:48] LABS: Alanine Aminotransferase 73 U/L (0-31); Albumin Level 4.1 g/dL (3.5-5.0); Alkaline Phosphatase 65 U/L (39-117); Anion Gap 16 (12-20); Aspartate Amino Transferase 51 U/L (5-31); Bilirubin Direct 0.3 mg/dL (0.0-0.5); Bilirubin Total 0.8 mg/dL (0.0-1.0); Blood Urea Nitrogen 11 mg/dL (9-16); C Reactive Protein 1.38 mg/dL (< or = 0.50); Calcium 9.3 mg/dL (8.4-10.2); Carbon Dioxide 26 mmol/L (22-29); Chloride 99 mmol/L (96-108); Creatinine Clr Calc Pharmacy 46.3; Estimated Glomerular Filt Rate 60; Glucose Random 325 mg/dL (60-115); Lactate Dehydrogenase 313 U/L (122-220); Magnesium 1.6 mg/dL (1.6-2.6); Potassium 4.3 mmol/l (3.3-5.1); Sodium 137 mmol/L (135-145); Total Protein 6.8 g/dL (6.5-8.0)
[2020-12-08 13:55] LABS: B Type Natriuretic Peptide 343 pg/mL (<100); Troponin-I High Sensitivity 62.2 ng/L (<3.5-17.0)
[2020-12-08 14:05] LABS: Procalcitonin 0.14 ng/mL
--- NOTE | 2020-12-08 14:11 | CT_ITS ---
EXAMINATION: CT CHEST WITHOUT CONTRAST CLINICAL INFORMATION: Evaluate for pneumonia. Covid infection. COMPARISON: Previous chest x-rays most recent from earlier this day and previous chest CT March 2019 TECHNIQUE: Multidetector volumetric CT imaging of the chest was done. Axial MIP volume rendering provided. Sagittal and coronal reformatted images were obtained. This CT examination was performed using dose optimization techniques as appropriate, variously including the following: *Automated exposure control *Adjustment of mA and/or kV according to patient size (this includes techniques or standardized protocols for targeted exams where dose is matched to indication/reason for exam; i.e. 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 There is linear scarring or subsegmental atelectasis in the anterior segment of the right upper lobe along the minor fissure. There is a cicatrization bronchiectasis and consolidation seen seen in the superior segment of the right lower lobe. There is volume loss to the right lower lobe. These findings are unchanged from 2019 exam. There is a new semisolid or round glass attenuation parenchymal density or nodule in the lingula. The left lung is otherwise clear. MEDIASTINUM: There are small mediastinal lymph nodes. There are no enlarged hilar or mediastinal lymph nodes. The heart is slightly enlarged. There is coronary artery and aortic valve calcification. There is no pericardial effusion. The thoracic aorta is normal in caliber. There is a calcification in the left lobe of the thyroid gland. PLEURA: There is no pleural effusion. No pleural mass or thickening. AXILLA: No lymphadenopathy. UPPER ABDOMEN: Unremarkable. OSSEOUS STRUCTURES: There are old bilateral rib fractures. There is an old left clavicle fracture. CT/CT chest wo con IMPRESSION: Limited exam due to artifact from respiratory motion. Linear scarring or chronic subsegmental atelectasis in the anterior right upper lobe along the minor fissure and focal cicatrization bronchiectasis and consolidation in the superior segment of the right lower lobe volar to March 2019. New 2 cm groundglass attenuation or semisolid nodule in the left upper lobe. This could represent Covid infection. Enlarged heart, coronary artery and aortic valve calcification.
[2020-12-08 14:47] LABS: Lactic Acid 1.5 mmol/L (0.5-2.0)
[2020-12-08 15:56] LABS: Ferritin 72 ng/mL (10-250)
--- NOTE | 2020-12-08 16:01 | PC.NURSE ---
Pt awake and alert, sitting up in chair. Denies diff breathing at this time. Pt placed on SPO2 monitor on room air. Plan for walking SPO2 trial if sats maintained on room air.
[2020-12-08] MEDS: 0.9 % Sodium Chloride 500 ML 999 ML IV (16:29)
[2020-12-08] MEDS: dexAMETHasone sod phosphate 4 MG/ML VIAL 6 MG IVPUSH (16:51)
[2020-12-08] MEDS: Acetaminophen 325 MG TABLET 650 MG PO (17:50)
[2020-12-08 17:55] LABS: Troponin-I High Sensitivity 48.8 ng/L (<3.5-17.0)
== END 2020-12-08 18:48 | disposition home or self-care (01) ==
PROVIDERS: Physician Assistant; Emergency Provider Internal Medicine; PCP Internal Medicine
DX: U07.1 COVID-19 (principal); R50.9 Fever, unspecified; I10 Essential (primary) hypertension; Z79.899 Other long term (current) drug therapy
CPT/HCPCS: 36415; 71045; 71250; 80048; 80076; 82728; 83605; 83615; 83735; 83880; 84145; 84484; 85025; 86140; 87040; 87635; 93005; 94640; 96365; 96366; 96375; 99283; 99284; J1100

== ENCOUNTER 2020-12-11 10:18 | Inpatient (IN) | payer MEDICARE, SELFPAY ==
[2020-12-11] VITALS (14 sets, daily range): BP systolic 101–151; BP diastolic 50–80; PULSE 93–116; RESP 15–26; TEMP 36.6–39; O2SAT 93–100; BMI 25.7
--- NOTE | 2020-12-11 10:48 | XR_ITS ---
EXAMINATION: XR CHEST CLINICAL INFORMATION: Weakness. COMPARISON: Chest 12/08/2020 TECHNIQUE: Frontal view of the chest was obtained. FINDINGS: The lungs are well-expanded with patchy bilateral perihilar, lower lobe and mid lung opacities suggestive of infiltrates. The findings has progressed since 12/08/2020. No pleural effusion seen. Heart size and pulmonary vascularity is normal. No gross bony abnormality. XR/XR chest 1V IMPRESSION: Bilateral patchy opacities seen in both mid lung and lower lobes consistent with infiltrates. The findings are worse compared to 12/08/2020.
--- NOTE | 2020-12-11 10:48 | ECG_ITS ---
Test Reason : SOB Blood Pressure : / mmHG Vent. Rate : 107 BPM Atrial Rate : 107 BPM P-R Int : 142 ms QRS Dur : 076 ms QT Int : 350 ms P-R-T Axes : 033 041 061 degrees QTc Int : 467 ms Sinus tachycardia Nonspecific ST abnormality Abnormal ECG When compared with ECG of 08-DEC-2020 13:49, No significant change was found Referred By: Jessica Tian Electronically Signed By:MIGUEL CONNOLLY MD
--- NOTE | 2020-12-11 10:50 | ED.NAVMDI ---
HPI - Nausea/Vomiting/Diarrhea General Chief complaint: Nausea/Vomiting/Diarrhea Stated complaint: sob Time Seen by Provider: 12/11/20 10:37 Source: patient, EMS, old records reviewed and negative retoucher Mode of arrival: EMS Limitations: no limitations History of Present Illness MD elicited complaint: nausea, vomiting, diarrhea and other (body aches, fevers dx with COVID on 12/08) Pertinent past history: other (COVID) Onset (ago): day(s) (3) Description of vomiting: food contents Associated nausea: Yes Associated abdominal pain: No Radiation: diffuse Severity: moderate Quality: aching Exacerbating factors: none Relieving factors: none Context: other (dx with COVID) Associated symptoms: myalgias, fever/chills, headaches, loss of appetite, malaise and nausea/vomiting Related Data Home Medications Medication Instructions Recorded Confirmed aspirin 81 mg tablet,delayed 81 mg PO DAILY 11/30/20 12/11/20 release atorvastatin 80 mg tablet 80 mg PO M 11/30/20 12/11/20 calcium carbonate 600 mg (1,500 1 tab PO DAILY 11/30/20 12/11/20 mg)-vitamin D3 200 unit tablet carvedilol 3.125 mg tablet 3.125 mg PO BID 11/30/20 12/11/20 clopidogrel 75 mg tablet 75 mg PO QAM 11/30/20 12/11/20 diltiazem HCl 240 mg 240 mg PO DAILY 11/30/20 12/11/20 capsule,extended release 24 hr enalapril maleate 10 mg tablet 10 mg PO DAILY 11/30/20 12/11/20 fluticasone propionate 50 1 - 2 spray INTRANASAL DAILY PRN 11/30/20 12/11/20 mcg/actuation nasal spray,suspension glipizide 10 mg tablet 10 mg PO DAILY 11/30/20 12/11/20 insulin glargine 100 unit/mL (3 42 unit SUBCUT BEDTIME 11/30/20 12/11/20 mL) subcutaneous pen isosorbide mononitrate 60 mg 60 mg PO QAM 11/30/20 12/11/20 tablet,extended release 24 hr metformin 500 mg tablet,extended 1,000 mg PO BID 11/30/20 11/30/20 release 24 hr multivitamin with iron 1 tab PO DAILY 11/30/20 11/30/20 prednisone 10 mg tablet 0 mg PO 11/30/20 11/30/20 zafirlukast 20 mg tablet 20 mg PO BID 11/30/20 11/30/20 Daliresp 500 mcg PO DAILY 12/11/20 12/11/20 albuterol sulfate 1 inh INHALATION Q4H PRN 12/11/20 12/11/20 albuterol sulfate 2.5 mg INHALATION Q6H PRN 12/11/20 12/11/20 azithromycin 1 tab PO 3XW 12/11/20 12/11/20 ketnynrzpwd-gwzzugxve-cgzpkxay 1 inh INHALATION DAILY 12/11/20 12/11/20 [Trelegy Ellipta] gabapentin 100 mg PO BEDTIME 12/11/20 12/11/20 ipratropium-albuterol [DuoNeb] 3 ml INHALATION QID 12/11/20 12/11/20 multivitamin [TAB A OPHELIA] 1 tab PO DAILY 12/11/20 12/11/20 prednisone 40 mg PO DAILY 12/11/20 12/11/20 Previous Rx's Medication Instructions Recorded ondansetron 4 mg PO Q8H PRN #20 tab 09/02/20 acetaminophen [Tylenol] 650 mg PO Q6H PRN #14 tab 09/21/20 omeprazole 20 mg capsule,delayed 20 mg PO BID 30 Days #60 cap 11/12/20 release prednisone 40 mg PO DAILY 4 Days #8 tab 12/08/20 doxycycline hyclate 100 mg capsule 100 mg PO BID 10 Days #20 cap 12/10/20 prednisone 20 mg tablet 20 mg PO DAILY 10 Days #15 tab 12/10/20 Allergies Allergy/AdvReac Type Severity Reaction Status Date / Time aspirin [Aspirin] Allergy Severe Rash Verified 11/30/20 13:53 clarithromycin [From Biaxin] Allergy Severe Rash Verified 11/30/20 13:53 Penicillins Allergy Severe Rash Verified 11/30/20 13:53 ampicillin [AMPICILLIN] Allergy Intermediate RASH Verified 11/30/20 13:53 Motrin Allergy Unknown Rash Uncoded 11/30/20 13:53 From AVELOX AdvReac Intermediate RASH Uncoded 11/30/20 13:53 Review of Systems Review of Systems: Constitutional : No Weight loss, pos Fever, pos Chills ENT/Mouth : No sore throat, No Rhinorrhea Eyes: No Swelling, No Redness Cardiovascular : No Chest Pain, No SOB, NoEdema Respiratory : No Cough, No Sputum, No Wheezing Gastrointestinal : Positive Nausea, Positive Vomiting, positive Diarrhea, no abdominal Pain, No Hematochezia, No Melena Genitourinary : No Dysuria, No Urinary Frequency, No Hematuria, No Urgency Musculoskeletal : No joint pain, No Myalgias, No Joint Swelling Skin : No Skin Lesions, No rash Neuro : pos Weakness, No Numbness, No Dizziness, No Headache Psych : No Anxiety/Panic, No Depression Heme/Lymph: No Bruising, No Lymphadenopathy Endocrine : No Polyuria, No Polydipsia All other systems reviewed and are negative. Gastrointestinal: Gastrointestinal: Reports nausea PMFSH Past Medical History Medical History (Updated 12/11/20 @ 12:45 by Jessica Tian DO) Asthma Bronchopneumonia Diabetes HTN (hypertension) ILD (interstitial lung disease) Pulmonary nodules Surgical History History of heart artery stent (~03/2019) History of hysterectomy Hx of colonoscopy (~06/2015) Family History Family History Father No problems noted. Mother No problems noted. Other Cancer Diabetes Heart problem Social History Social History Alcohol intake: never Smoking Status: Never smoker Smoked in Last 30 Days: No Use of substances other than those prescribed or required for medical reasons: No Advance Directives: No Advance Directives Information Provided: No Physical Exam Vital Signs: Vital Signs: Last Vital Signs Temp 98.9 F 12/11/20 11:35 Pulse 116 H 12/11/20 12:20 Resp 22 H 12/11/20 12:20 BP 119/63 12/11/20 12:20 Pulse Ox 94 12/11/20 12:20 Body Mass Index 25.7 Appearance: Alert. Oriented X3. No acute distress. Eyes: Pupils equal, round and reactive to light. ENT: Pharynx normal. Neck: Normal inspection. Neck supple. CVS: tachycardic heart rate and rhythm. Pulses normal. Respiratory: No respiratory distress. Breath sounds tight with diffuse wheezing Abdomen: Soft and non-tender. Skin: Skin warm and dry. Normal skin color. Normal skin turgor. Extremities: No lower extremity edema. No calf ttp Neuro: Oriented X 3. No motor deficit. No sensory deficit. Course Course Course Narrative: denies CP/SOB relatively low ddimer low susp for PE chronically elevated troponin no CP will attempt RA sat. overall still not feeling well she is tight will need repeat neb, very likely fail and become worse in the next 24 hours will admit for COVID pneumonia, n/v COPD MDM - Nausea/Vomiting/Diarrhea MDM Narrative Medical decision making narrative: 75 yo female with CAD s/p PCI, asthma, COPD HPL just finished antibiotics about a week ago dx with COVID on 12/08 c/o n/v/d fevers and overall not feeling well she reports she has no CP or worsening breathing at this time she is wheezing and febrile - will need labs, CXR, IV steroids, neb treatment suppportive medications at this time will need observation and attempts to assess RA status, dispo per results and findings. Lab Data Result diagrams: 12/11/20 10:52 12/11/20 10:52 Labs: Lab Results 12/11/20 12/11/20 12/11/20 Range/Units 10:51 10:52 10:52 WBC 6.3 (4.8-10.8) X10*3/uL RBC 3.79 L (4.20-5.50) X10*6/uL Hgb 11.5 L (12.0-16.0) g/dl Hct 35.8 L (37-47) % MCV 94.5 (80-98) fL MCH 30.3 (27.0-33.0) pg MCHC 32.1 (31.0-35.0) g/dl RDW 14.0 (11.0-16.0) % Plt Count 142 L (160-400) X10*3/uL MPV 9.4 (9.4-12.3) fL Immature Gran % (Auto) 0.5 H (0.0-0.4) % Neut % (Auto) 83.9 H (45-73) % Lymph % (Auto) 6.9 L (20-40) % [place] % (Auto) 8.5 (2-11) % Eos % (Auto) 0.0 (0-4) % Baso % (Auto) 0.2 (0-2) % Lymph # (Auto) 0.4 L (1.2-4.9) X10*3/uL [place] # (Auto) 0.5 (0.1-1.2) X10*3/uL Eos # (Auto) 0.0 (0.0-0.4) X10*3/uL Baso # (Auto) 0.0 (0.0-0.2) X10*3/uL Abs Immat Gran (auto) 0.03 (0.00-0.03) X10*3/uL Absolute Neuts (auto) 5.3 (2.0-8.3) X10*3/uL Absolute Nucleated RBC 0.000 (0.0-0.012) X10*3/uL Nucleated RBC % (auto) 0.0 (0.0-0.2) /100WBC Smear Tech's Comments VERIFIED PT 13.3 H (10.8-13.0) SEC INR 1.1 (0.9-1.1) APTT 31.9 (24.1-38.0) SEC D-Dimer 273 NG/ML Sodium (135-145) mmol/L Potassium (3.3-5.1) mmol/l Chloride (96-108) mmol/L Carbon Dioxide (22-29) mmol/L Anion Gap (12-20) BUN (9-16) mg/dL Creatinine (0.5-1.4) mg/dL Estim Creat Clear Calc Estimated GFR Random Glucose (60-115) mg/dL Lactic Acid 1.1 (0.5-2.0) mmol/L Calcium (8.4-10.2) mg/dL Magnesium (1.6-2.6) mg/dL Ferritin (10-250) ng/mL Total Bilirubin (0.0-1.0) mg/dL Direct Bilirubin (0.0-0.5) mg/dL AST (5-31) U/L ALT (0-31) U/L Alkaline Phosphatase (39-117) U/L Lactate Dehydrogenase Total Creatine Kinase (26-140) U/L Troponin I High Sens (<3.5-17.0) ng/L B-Natriuretic Peptide (<100) pg/mL Total Protein (6.5-8.0) g/dL Albumin (3.5-5.0) g/dL Lipase (8-78) U/L 12/11/20 12/11/20 Range/Units 10:52 10:52 WBC (4.8-10.8) X10*3/uL RBC (4.20-5.50) X10*6/uL Hgb (12.0-16.0) g/dl Hct (37-47) % MCV (80-98) fL MCH (27.0-33.0) pg MCHC (31.0-35.0) g/dl RDW (11.0-16.0) % Plt Count (160-400) X10*3/uL MPV (9.4-12.3) fL Immature Gran % (Auto) (0.0-0.4) % Neut % (Auto) (45-73) % Lymph % (Auto) (20-40) % [place] % (Auto) (2-11) % Eos % (Auto) (0-4) % Baso % (Auto) (0-2) % Lymph # (Auto) (1.2-4.9) X10*3/uL [place] # (Auto) (0.1-1.2) X10*3/uL Eos # (Auto) (0.0-0.4) X10*3/uL Baso # (Auto) (0.0-0.2) X10*3/uL Abs Immat Gran (auto) (0.00-0.03) X10*3/uL Absolute Neuts (auto) (2.0-8.3) X10*3/uL Absolute Nucleated RBC (0.0-0.012) X10*3/uL Nucleated RBC % (auto) (0.0-0.2) /100WBC Smear Tech's Comments PT (10.8-13.0) SEC INR (0.9-1.1) APTT (24.1-38.0) SEC D-Dimer NG/ML Sodium 137 (135-145) mmol/L Potassium 3.4 D (3.3-5.1) mmol/l Chloride 100 (96-108) mmol/L Carbon Dioxide 25 (22-29) mmol/L Anion Gap 15 (12-20) BUN 10 (9-16) mg/dL Creatinine 0.64 (0.5-1.4) mg/dL Estim Creat Clear Calc 69.3 Estimated GFR > 60 Random Glucose 148 H D (60-115) mg/dL Lactic Acid (0.5-2.0) mmol/L Calcium 8.5 D (8.4-10.2) mg/dL Magnesium 1.3 L* (1.6-2.6) mg/dL Ferritin 136 (10-250) ng/mL Total Bilirubin 0.5 (0.0-1.0) mg/dL Direct Bilirubin 0.2 (0.0-0.5) mg/dL AST 53 H (5-31) U/L ALT 56 H (0-31) U/L Alkaline Phosphatase 62 (39-117) U/L Lactate Dehydrogenase Cancelled Total Creatine Kinase 95 (26-140) U/L Troponin I High Sens 70.8 H (<3.5-17.0) ng/L B-Natriuretic Peptide 308 H (<100) pg/mL Total Protein 6.7 (6.5-8.0) g/dL Albumin 4.0 (3.5-5.0) g/dL Lipase 37 (8-78) U/L ECG Data Attestation: I personally reviewed and interpreted this ECG as follows: ECG interpretation date: 12/11/20 ECG interpretation time: 11:45 Interpretation: Rate: 107 Rhythm: sinus tachycardia [place]: normal Normal P waves. Normal MALINDA. Normal QRS complex. ST T wave : normal no NIDA qTC: normal prior studies: no acute ischemia The study has been interpreted contemporaneously by me. . Critical Care Time Critical Care Time Critical Care Time: Yes Total Critical Care Time: 35 Attestation: repeat nebs, IV steroids, repeat assessments, IV antibiotics, 02 supplementation I attest to this time spent taking care of the patient Discharge Plan Discharge Clinical Impression: COVID-19, Pneumonia due to COVID-19 virus, Elevated troponin, Hypomagnesemia, COPD exacerbation Vomiting Qualifiers: Vomiting type: unspecified Vomiting Intractability: non-intractable Nausea presence: with nausea Qualified Code(s): R11.2 - Nausea with vomiting, unspecified Patient Disposition: Admitted As Inpatient
[2020-12-11 11:01] LABS: Basophils Percent Auto 0.2 % (0-2); Hematocrit 35.8 % (37-47); Hemoglobin 11.5 g/dl (12.0-16.0); Imm Gran Abs Auto 0.03 X10*3/uL (0.00-0.03); Imm Gran Pct Auto 0.5 % (0.0-0.4); Lymphocytes Absolute Auto 0.4 X10*3/uL (1.2-4.9); Lymphocytes Percent Auto 6.9 % (20-40); MANUAL DIFF FLAG SCAN; Mean Corpuscular HGB Conc 32.1 g/dl (31.0-35.0); Mean Corpuscular Hemoglobin 30.3 pg (27.0-33.0); Mean Corpuscular Volume 94.5 fL (80-98); Mean Platelet Volume 9.4 fL (9.4-12.3); Monocytes Absolute Auto 0.5 X10*3/uL (0.1-1.2); Monocytes Percent Auto 8.5 % (2-11); Neutrophils Absolute Auto 5.3 X10*3/uL (2.0-8.3); Neutrophils Percent Auto 83.9 % (45-73); Platelet Count 142 X10*3/uL (160-400); Red Blood Count 3.79 X10*6/uL (4.20-5.50); SCAN SMEAR FLAG 1; White Blood Count 6.3 X10*3/uL (4.8-10.8)
[2020-12-11] MEDS: 0.9 % Sodium Chloride 500 ML IV (11:06)
[2020-12-11] MEDS: Acetaminophen 325 MG TABLET 650 MG PO (11:06)
[2020-12-11] MEDS: methylPREDNISolone Sod Succ/PF 125 MG/2 ML VIAL 60 MG IVPUSH (11:06)
[2020-12-11] MEDS: ondansetron HCL 4 MG/2 ML VIAL IVPUSH (11:06)
[2020-12-11 11:07] LABS: INTERNATIONAL NORM RATIO 1.1 (0.9-1.1); Prothrombin Time 13.3 SEC (10.8-13.0)
[2020-12-11 11:10] LABS: D Dimer 273 NG/ML; Partial Thromboplastin Time 31.9 SEC (24.1-38.0)
[2020-12-11 11:32] LABS: Lactic Acid 1.1 mmol/L (0.5-2.0)
[2020-12-11 11:35] LABS: SLIDE REVIEW VERIFIED
[2020-12-11 11:45] LABS: Alanine Aminotransferase 56 U/L (0-31); Alkaline Phosphatase 62 U/L (39-117); Anion Gap 15 (12-20); Aspartate Amino Transferase 53 U/L (5-31); Bilirubin Direct 0.2 mg/dL (0.0-0.5); Bilirubin Total 0.5 mg/dL (0.0-1.0); Blood Urea Nitrogen 10 mg/dL (9-16); Calcium 8.5 mg/dL (8.4-10.2); Carbon Dioxide 25 mmol/L (22-29); Chloride 100 mmol/L (96-108); Creatinine Clr Calc Pharmacy 69.3; Estimated Glomerular Filt Rate > 60; Glucose Random 148 mg/dL (60-115); Lipase 37 U/L (8-78); Magnesium 1.3 mg/dL (1.6-2.6); Potassium 3.4 mmol/l (3.3-5.1); Sodium 137 mmol/L (135-145); Total Protein 6.7 g/dL (6.5-8.0)
[2020-12-11] MEDS: Albuterol Sulfate (0.083%) 2.5 MG/3 ML VIAL.NEB 5 MG INHALE ×2 (11:47→14:22)
[2020-12-11 12:00] LABS: B Type Natriuretic Peptide 308 pg/mL (<100); Ferritin 136 ng/mL (10-250); Troponin-I High Sensitivity 70.8 ng/L (<3.5-17.0)
--- NOTE | 2020-12-11 12:34 | PC.NURSE ---
spo2 desat to 91 on room air with ambulation, returned to bed now 96% on room air
[2020-12-11] MEDS: cefTRIAXone sodium 1 GM in 0.9 % Sodium Chloride 50 ML IV (12:43)
[2020-12-11 12:44] LABS: Lactate Dehydrogenase 275 U/L (122-220)
[2020-12-11] MEDS: Magnesium Sulfate/H2O 2 GM/50 ML PIGGYBACK IV (12:59)
[2020-12-11] MEDS: Doxycycline Hyclate 100 MG in 0.9 % Sodium Chloride 250 ML 166.67 MG IV (13:21)
--- NOTE | 2020-12-11 14:03 | PM.IMHP ---
History of Present Illness Date of Service: 12/11/20 <Rona Thomas NP - Last Filed: 12/11/20 15:37> Chief Complaint: Vomiting and diarrhea <Rona Thomas NP - Last Filed: 12/11/20 15:37> 75 year old women presenting with nausea, vomiting and diarrhea with no bleeding. She also reported body aches and fever. She has a history of COPD/ILD and was diagnosed with Covid on 12/08/20. She suddenly developed these GI symptoms. She recently had [place] with [place] [facility] [place]. She was admitted to [facility] for copd exacerbation and bronchopneumonia. She was discharged to complete antibiotics and steroids. In the ED, She was given albuterol, rocephin, doxycycline. At this point she is not hypoxic and and she will be admitted for covid pneumonia. <Rona Thomas NP - Last Filed: 12/11/20 15:37> Review of Systems Review of Systems: Denies any recent fever chills or decrease in appetite respiratory See HPI cardiovascular is adjustment of any PND or edema gastrointestinal See HPI genitourinary denies any dysuria frequency or hematuria musculoskeletal denies any joint pain or swelling neuropsych denies any weakness or seizures all other systems reviewed are negative <Rona Thomas NP - Last Filed: 12/11/20 15:37> [facility] Medical History: Medical History (Updated 12/11/20 @ 12:45 by Jessica Tian DO) Asthma Bronchopneumonia Diabetes HTN (hypertension) ILD (interstitial lung disease) Pulmonary nodules <Rona Thomas NP - Last Filed: 12/11/20 15:37> Family History: Family History (Updated 12/11/20 @ 14:22 by Rona Thomas NP) Other Cancer Diabetes Heart problem <Rona Thomas NP - Last Filed: 12/11/20 15:37> Surgical History: Surgical History History of heart artery stent (~03/2019) History of hysterectomy Hx of colonoscopy (~06/2015) <Rona Thomas NP - Last Filed: 12/11/20 15:37> Social History: Social History Alcohol intake: never Smoking Status: Never smoker Smoked in Last 30 Days: No Use of substances other than those prescribed or required for medical reasons: No Currently Displaying Signs/Symptoms of Drug Intoxication Withdrawal: No Advance Directives: No Advance Directives Information Provided: No Do you have thoughts of harming others: None Do you have a plan to hurt others: No Plan <Rona Thomas NP - Last Filed: 12/11/20 15:37> Meds Allergies/Adverse reactions: Allergies Allergy/AdvReac Type Severity Reaction Status Date / Time aspirin [Aspirin] Allergy Severe Rash Verified 11/30/20 13:53 clarithromycin [From Biaxin] Allergy Severe Rash Verified 11/30/20 13:53 Penicillins Allergy Severe Rash Verified 11/30/20 13:53 ampicillin [AMPICILLIN] Allergy Intermediate RASH Verified 11/30/20 13:53 Motrin Allergy Unknown Rash Uncoded 11/30/20 13:53 From AVELOX AdvReac Intermediate RASH Uncoded 11/30/20 13:53 <Rona Thomas NP - Last Filed: 12/11/20 15:37> Home medications: Home Medications Medication Instructions Recorded Confirmed Type aspirin 81 mg tablet,delayed 81 mg PO DAILY 11/30/20 12/11/20 History release atorvastatin 80 mg tablet 80 mg PO QAM 11/30/20 12/11/20 History calcium carbonate 600 mg (1,500 1 tab PO DAILY 11/30/20 12/11/20 History mg)-vitamin D3 200 unit tablet carvedilol 3.125 mg tablet 3.125 mg PO BID 11/30/20 12/11/20 History clopidogrel 75 mg tablet 75 mg PO QAM 11/30/20 12/11/20 History diltiazem HCl 240 mg 240 mg PO DAILY 11/30/20 12/11/20 History capsule,extended release 24 hr enalapril maleate 10 mg tablet 10 mg PO DAILY 11/30/20 12/11/20 History fluticasone propionate 50 1 - 2 spray INTRANASAL DAILY PRN 11/30/20 12/11/20 History mcg/actuation nasal spray,suspension glipizide 10 mg tablet 10 mg PO DAILY 11/30/20 12/11/20 History insulin glargine 100 unit/mL (3 42 unit SUBCUT BEDTIME 11/30/20 12/11/20 History mL) subcutaneous pen isosorbide mononitrate 60 mg 60 mg PO QA 11/30/20 12/11/20 History tablet,extended release 24 hr metformin 500 mg tablet,extended 1,000 mg PO BID 11/30/20 12/11/20 History release 24 hr zafirlukast 20 mg tablet 20 mg PO BID 11/30/20 12/11/20 History Daliresp 500 mcg PO DAILY 12/11/20 12/11/20 History albuterol sulfate 1 inh INHALATION Q4H PRN 12/11/20 12/11/20 History albuterol sulfate 2.5 mg INHALATION Q6H PRN 12/11/20 12/11/20 History azithromycin 1 tab PO 3XW 12/11/20 12/11/20 History benzonatate 100 mg PO TID PRN 12/11/20 12/11/20 History kqzqcswrowy-kurqdgkrt-jzawtmuz 1 inh INHALATION DAILY 12/11/20 12/11/20 History [Trelegy Ellipta] gabapentin 100 mg PO BEDTIME 12/11/20 12/11/20 History ipratropium-albuterol [DuoNeb] 3 ml INHALATION QID 12/11/20 12/11/20 History multivitamin [TAB A OPHELIA] 1 tab PO DAILY 12/11/20 12/11/20 History prednisone 40 mg PO DAILY 12/11/20 12/11/20 History <Rona Thomas NP - Last Filed: 12/11/20 15:37> Physical Exam Vital Signs and Narrative: Vital Signs: Last Vital Signs Temp 98.9 F 12/11/20 11:35 Pulse 116 H 12/11/20 12:20 Resp 22 H 12/11/20 12:20 BP 119/63 12/11/20 12:20 Pulse Ox 94 12/11/20 12:20 Body Mass Index 25.7 <Rona Thomas NP - Last Filed: 12/11/20 15:37> Appearing in no acute distress head is normocephalic atraumatic eyes pupils are PERRLA sclera is anicteric mouth throat mucous membranes dry lung sounds exp wheezes heart regular rate rhythm, clear S1, S2 Abd nontender neuro patient is alert x3, no focal deficits <Rona Thomas NP - Last Filed: 12/11/20 15:37> Results Labs CBC and Chem 7: : 12/12/20 06:47 12/12/20 06:47 <Rona Thomas NP - Last Filed: 12/11/20 15:37> Labs: Laboratory Results - last 24 hr 12/11/20 12/11/20 12/11/20 10:51 10:52 10:52 MCV 94.5 MCH 30.3 MCHC 32.1 RDW 14.0 Plt Count 142 L MPV 9.4 Immature Gran % (Auto) 0.5 H Neut % (Auto) 83.9 H Lymph % (Auto) 6.9 L [place] % (Auto) 8.5 Eos % (Auto) 0.0 Baso % (Auto) 0.2 Lymph # (Auto) 0.4 L [place] # (Auto) 0.5 Eos # (Auto) 0.0 Baso # (Auto) 0.0 Abs Immat Gran (auto) 0.03 Absolute Neuts (auto) 5.3 Absolute Nucleated RBC 0.000 Nucleated RBC % (auto) 0.0 Smear Tech's Comments VERIFIED PT 13.3 H INR 1.1 APTT 31.9 D-Dimer 273 Anion Gap Estim Creat Clear Calc Estimated GFR Random Glucose Lactic Acid 1.1 Calcium Magnesium Ferritin Total Bilirubin Direct Bilirubin AST ALT Alkaline Phosphatase Lactate Dehydrogenase Total Creatine Kinase Troponin I High Sens B-Natriuretic Peptide Total Protein Albumin Lipase 12/11/20 12/11/20 12/11/20 10:52 10:52 12:05 MCV MCH MCHC RDW Plt Count MPV Immature Gran % (Auto) Neut % (Auto) Lymph % (Auto) [place] % (Auto) Eos % (Auto) Baso % (Auto) Lymph # (Auto) [place] # (Auto) Eos # (Auto) Baso # (Auto) Abs Immat Gran (auto) Absolute Neuts (auto) Absolute Nucleated RBC Nucleated RBC % (auto) Smear Tech's Comments PT INR APTT D-Dimer Anion Gap 15 Estim Creat Clear Calc 69.3 Estimated GFR > 60 Random Glucose 148 H D Lactic Acid Calcium 8.5 D Magnesium 1.3 L* Ferritin 136 Total Bilirubin 0.5 Direct Bilirubin 0.2 AST 53 H ALT 56 H Alkaline Phosphatase 62 Lactate Dehydrogenase Cancelled 275 H Total Creatine Kinase 95 Troponin I High Sens 70.8 H B-Natriuretic Peptide 308 H Total Protein 6.7 Albumin 4.0 Lipase 37 <Rona Thomas NP - Last Filed: 12/11/20 15:37> Imaging Radiologist's Impressions: Impressions Chest X-Ray 12/11/20 10:48 IMPRESSION: Bilateral patchy opacities seen in both mid lung and lower lobes consistent with infiltrates. The findings are worse compared to 12/08/2020. <Rona Thomas NP - Last Filed: 12/11/20 15:37> Assessment and Plan (1) Pneumonia due to COVID-19 virus: Status: Acute <Rona Thomas ELECTRIC REFRIGERATOR SERVICER - Last Filed: 12/11/20 15:37> 75 year old women admitted with Covid pneumonia. Mostly GI symptoms. Viral Sepsis. Fever, tachycardia, tachypnea, covid positive on 12/08/20. Normal lactic acid. Follow blood cultures. Covid 19/viral pneumonia. Rocephin, Azithromycin, Decadron Transaminitis. Likely viral from Covid-19. Trend. Hypertension. Stable blood pressure but on the lower side. Hold medications. Diabetes. Sliding scale, ADA diet Hyperlipidemia. Statin. GERD. PPI. Discussed with Dr. Flores Full code <Rona Thomas NP - Last Filed: 12/11/20 15:37>
--- NOTE | 2020-12-11 14:16 | PC.NURSE ---
UP TO BEDSIDE COMMODE VOID APPROX 300ML URINE NO DIARRHEA CONGESTED COUGH NO ACUTE RESP DISTRESS, WILCOX
[2020-12-11] MEDS: Clopidogrel Bisulfate 75 MG TABLET PO (15:10)
[2020-12-11] MEDS: 0.9 % Sodium Chloride Flush 3 ML SYRINGE IVFLUSH ×2 (15:10→19:56)
[2020-12-11] MEDS: Atorvastatin Calcium 80 MG TABLET PO (15:10)
--- NOTE | 2020-12-11 15:22 | PC.NURSE ---
22g L forearm removed r/t pt discomfort/ request. Linen changed. Repositioned for comfort. Pharmacy called for Imdur.
[2020-12-11] MEDS: Isosorbide Mononitrate 60 MG TAB.ER.24H PO (15:34)
--- NOTE | 2020-12-11 16:23 | PM.EVENT ---
Event Note Date of Service: 12/11/20 Event Note: Admission note The patient was seen and evaluated with Rona Thomas NP. I agree with her note, assessment and plan with the following. A 75 years old lady with PMH of asthma, diabetes, I LD, HTN among others who presented to the hospital complaining of body pain, chills and fever. Her symptoms were associated with nausea, vomiting and diarrhea but no reported abdominal pain. Her lab work was positive for COVID-19 infection. Viral sepsis COVID-19 infection Treated with IV Decadron start azithromycin To get pulmonology evaluation Oxygen supplement as needed Rest of evaluations by EMERGENCY DEPARTMENT COORDINATOR note.
--- NOTE | 2020-12-11 18:00 | PC.NURSE ---
pt from the R for nausea and vomiting. She is Covid +. Pt reports nausea but is tolerating PO intake. She has no wounds, redness or bruising to skin, no edema. Pt sinus on monitor, oxygen saturation 96% on 2L. will continue to monitor
[2020-12-11] MEDS: Insulin Glargine,Hum.rec.anlog 100 UNIT/ML 10 ML VIAL 42 UNIT SUBCUT (19:54)
[2020-12-11] MEDS: carvediloL 3.125 MG TABLET PO (19:55)
[2020-12-11] MEDS: Gabapentin 100 MG CAPSULE PO (19:55)
[2020-12-11] MEDS: Omeprazole 20 MG CAPSULE.DR PO (19:55)
[2020-12-11] MEDS: Montelukast Sodium 10 MG TABLET PO (19:56)
[2020-12-11 20:12] LABS: Glucose, Whole Blood 307 mg/dL (60-115)
[2020-12-11 21:45] LABS: Troponin-I High Sensitivity 65.7 ng/L (<3.5-17.0)
[2020-12-12] VITALS (9 sets, daily range): BP systolic 107–146; BP diastolic 52–77; PULSE 83–114; RESP 10–23; TEMP 36.8–39.1; O2SAT 96–99
[2020-12-12] MEDS: Acetaminophen 325 MG TABLET 650 MG PO ×3 (06:08→19:44)
[2020-12-12 06:58] LABS: MANUAL DIFF FLAG NO
[2020-12-12 07:10] LABS: Basophils Percent Auto 0.2 % (0-2); Hematocrit 33.1 % (37-47); Hemoglobin 10.5 g/dl (12.0-16.0); Imm Gran Abs Auto 0.03 X10*3/uL (0.00-0.03); Imm Gran Pct Auto 0.6 % (0.0-0.4); Lymphocytes Absolute Auto 0.7 X10*3/uL (1.2-4.9); Lymphocytes Percent Auto 14.2 % (20-40); Mean Corpuscular HGB Conc 31.7 g/dl (31.0-35.0); Mean Corpuscular Hemoglobin 29.9 pg (27.0-33.0); Mean Corpuscular Volume 94.3 fL (80-98); Mean Platelet Volume 9.3 fL (9.4-12.3); Monocytes Absolute Auto 0.3 X10*3/uL (0.1-1.2); Monocytes Percent Auto 5.5 % (2-11); Neutrophils Absolute Auto 4.1 X10*3/uL (2.0-8.3); Neutrophils Percent Auto 79.5 % (45-73); Platelet Count 144 X10*3/uL (160-400); Red Blood Count 3.51 X10*6/uL (4.20-5.50); Red Cell Distribution Width 14.2 % (11.0-16.0); White Blood Count 5.1 X10*3/uL (4.8-10.8)
[2020-12-12 07:32] LABS: Anion Gap 13 (12-20); Blood Urea Nitrogen 15 mg/dL (9-16); Calcium 8.1 mg/dL (8.4-10.2); Carbon Dioxide 26 mmol/L (22-29); Chloride 106 mmol/L (96-108); Creatinine Clr Calc Pharmacy 75.1; Estimated Glomerular Filt Rate > 60; Glucose Random 83 mg/dL (60-115); Potassium 3.5 mmol/l (3.3-5.1); Sodium 141 mmol/L (135-145)
[2020-12-12 07:34] LABS: Magnesium 1.8 mg/dL (1.6-2.6)
[2020-12-12] MEDS: 0.9 % Sodium Chloride Flush 3 ML SYRINGE IVFLUSH ×3 (07:45→19:47)
[2020-12-12 08:45] LABS: Glucose, Whole Blood 57 mg/dL (60-115)
[2020-12-12] MEDS: carvediloL 3.125 MG TABLET PO ×2 (09:41→19:40)
[2020-12-12] MEDS: Calcium + Vitamin D 250 MG TABLET 500 MG PO (09:41)
[2020-12-12] MEDS: dilTIAZem HCL CD 240 MG CAP.ER.DEG PO (09:41)
[2020-12-12] MEDS: Atorvastatin Calcium 80 MG TABLET PO (09:41)
[2020-12-12] MEDS: Isosorbide Mononitrate 60 MG TAB.ER.24H PO (09:42)
[2020-12-12] MEDS: Aspirin Enteric Coated 81 MG TABLET.DR PO (09:42)
[2020-12-12] MEDS: Clopidogrel Bisulfate 75 MG TABLET PO (09:42)
[2020-12-12] MEDS: Multivitamin TABLET 1 TAB PO (09:42)
[2020-12-12] MEDS: glipiZIDE 10 MG TABLET PO (09:42)
[2020-12-12] MEDS: Omeprazole 20 MG CAPSULE.DR PO ×2 (09:42→19:40)
[2020-12-12] MEDS: Enalapril Maleate 10 MG TABLET PO (09:42)
[2020-12-12] MEDS: dexAMETHasone sod phosphate 4 MG/ML VIAL 6 MG IVPUSH (10:47)
[2020-12-12 11:27] LABS: Glucose, Whole Blood 225 mg/dL (60-115)
--- NOTE | 2020-12-12 11:53 | PC.NURSE ---
pt has been given incentive spirometer and teaching, she is able to return demonstrate proper use. Pt not making effort to use device, also not eating. She states she is tired, also reports feeling chills. Will continue to monitor
[2020-12-12] MEDS: ondansetron HCL 4 MG/2 ML VIAL IVPUSH (12:52)
--- NOTE | 2020-12-12 13:08 | MHC.CM.PN ---
pt lives alone in her apt. she does however have a back order clerk who is her son and he visits her daily. this interview was conducted thru her son, domingo. she also has a vna nurse thru [facility]. she has a walker but does not use it. she does not have any o2 at home. pt's son/back order clerk will provide transportation at dc. dc plan is home c aforementioned svcs. cm to cont. to follow.
--- NOTE | 2020-12-12 14:01 | HO.PM.IMPN ---
Subjective Subjective Date of Service: 12/12/20 Interval History: the patient was seen and evaluated this morning Laying in bed, feels exhausted, tired and having pain all over her body Reports mild nausea and shortness of breath, no chest pain, on room No reported other overnight events. Systemic review: No fever, chills or weakness No chest pain, palpitation Mild shortness of breath with exertion or coughing No abdominal pain but reporting nausea No urinary symptoms No any rash or wounds A Physical Exam Vital Signs: Vital Signs: Last Vital Signs Temp 102.4 F H 12/12/20 12:00 Pulse 114 H 12/12/20 12:00 Resp 20 12/12/20 12:00 BP 146/77 H 12/12/20 12:00 Pulse Ox 96 12/12/20 12:00 Body Mass Index 25.7 Const: Other: Constitutional : Alert , oriented to self and place, not in distress Neck : Normal inspection, Supple Cardiovascular : RRR, S1 S2, no lower extremity edema Respiratory : Decreased bilateral air entry, not in distress Gastrointestinal: soft, lax, Normal bowel sounds, generalized abdominal tenderness Skin : Warm/Dry, No rash Neurological : Alert & oriented x3, No focal deficit Objective Data Current Medications Generic Name Dose Route Start Last Admin Trade Name Freq PRN Reason Stop Dose Admin Acetaminophen 650 mg 12/11/20 14:12/12/20 12:52 Acetaminophen 325 Mg Tablet PO 650 mg Q6H PRN Administration Pain, Mild (Pain Scale 1-3) Aspirin 81 mg 12/12/20 09:00 12/12/20 09:42 Aspirin Enteric Coated 81 Mg Tablet. PO 81 mg DAILY G[facility] Administration Atorvastatin Calcium 80 mg 12/11/20 14:01 12/12/20 09:41 Atorvastatin Calcium 80 Mg Tablet PO 80 mg DAILY G[facility] Administration Benzonatate 100 mg 12/11/20 14:01 Benzonatate 100 Mg Capsule PO TID PRN Cough Calcium Carbonate/Cholecalciferol 500 mg 12/12/20 09:00 12/12/20 09:41 Calcium + Vitamin D 250 Mg Tablet PO 500 mg DAILY G[facility] Administration Carvedilol 3.125 mg 12/11/20 21:00 12/12/20 09:41 Carvedilol 3.125 Mg Tablet PO 3.125 mg BID G[facility] Administration Protocol Clopidogrel Bisulfate 75 mg 12/11/20 14:12/12/20 09:42 Clopidogrel Bisulfate 75 Mg Tablet PO 75 mg DAILY [facility] Administration Dexamethasone Sodium Phosphate 6 mg 12/12/20 09:00 12/12/20 10:47 Dexamethasone Sod Phosphate 4 Mg/Ml Vial IVPUSH 6 mg DAILY [facility] Administration Diltiazem HCl 240 mg 12/12/20 09:00 12/12/20 09:41 Diltiazem Hcl Cd 240 Mg Cap.Er.Deg PO 240 mg DAILY G[facility] Administration Protocol Enalapril Maleate 10 mg 12/12/20 09:00 12/12/20 09:42 Enalapril Maleate 10 Mg Tablet PO 10 mg DAILY [facility] Administration Protocol Gabapentin 100 mg 12/11/20 21:00 12/11/20 19:55 Gabapentin 100 Mg Capsule PO 100 mg BEDTIME [facility] Administration Glipizide 10 mg 12/12/20 09:00 12/12/20 09:42 Glipizide 10 Mg Tablet PO 10 mg DAILY [facility] Administration Insulin Glargine 42 unit 12/11/20 21:00 12/11/20 19:54 Insulin Glargine,Hum.Rec.Anlog 100 Unit/Ml 10 Ml Vial SUBCUT 42 unit BEDTIME G[facility] Administration Isosorbide Mononitrate 60 mg 12/11/20 14:01 12/12/20 09:42 Isosorbide Mononitrate 60 Mg Tab.Er.24h PO 60 mg DAILY [facility] Administration Protocol Montelukast Sodium 10 mg 12/11/20 21:00 12/11/20 19:56 Montelukast Sodium 10 Mg Tablet PO 10 mg BEDTIME G[facility] Administration Multivitamins/Vitamin C 1 tab 12/12/20 09:00 12/12/20 09:42 Multivitamin Tablet PO 1 tab DAILY [facility] Administration Non-Formulary Medication 1 inhalation 12/12/20 09:00 [id number] [Trelegy Ellipta] INHALE DAILY [facility] Non-Formulary Medication 500 mcg 12/12/20 09:00 Roflumilast [Daliresp] PO DAILY [facility] Omeprazole 20 mg 12/11/20 21:00 12/12/20 09:42 Omeprazole 20 Mg Capsule.Dr PO 20 mg BID G[facility] Administration Ondansetron HCl 4 mg 12/11/20 14:01 12/12/20 12:52 Ondansetron Hcl 4 Mg/2 Ml Vial IVPUSH 4 mg Q8H PRN Administration Nausea and Vomiting Pharmacy Consult 1 each 12/11/20 10:47 Consult Rx Perform Med Rec MISCELLANE ONCE PRN Consult order Sodium Chloride 3 ml 12/11/20 16:00 12/12/20 07:45 0.9 % Sodium Chloride Flush 3 Ml Syringe IVFLUSH 3 ml QSHIFT [facility] Administration Labs CBC & Chem 7: 12/12/20 06:47 12/12/20 06:47 Microbiology Microbiology Results: Microbiology 12/11/20 10:53 Blood - Venous Blood Culture - Preliminary No growth after 24 hours. 12/11/20 10:51 Blood - Venous Blood Culture - Preliminary No growth after 24 hours. Assessment and Plan (1) Pneumonia due to COVID-19 virus: Status: Acute Assessment and Plan: 75 year old women admitted with Covid pneumonia. Mostly GI symptoms. Viral Sepsis covid infection Positive PCR on 12/08/20 Oxygen supplement as needed Continue Decadron day 2 Start doxycycline b.i.d. for any atypical infection Transaminitis. Likely viral from Covid-19 continue to monitor Hypertension. Held for low blood pressures Restart as tolerated Hypoglycemic event Type 2 Diabetes. Discontinue glipizide Decrease Lantus insulin 35 units at night Sliding scale, ADA diet Hyperlipidemia. Statin. GERD. PPI. DVT PPX Lovenox
--- NOTE | 2020-12-12 15:09 | PC.NURSE ---
pt has fever and was medicated with tylenol. She has not eaten greater than 20% today and needs frequent encouragement to drink fluid. Pt was also medicated for nausea.
[2020-12-12] MEDS: Doxycycline Hyclate 100 MG in 0.9 % Sodium Chloride 250 ML 166.67 MG IV (15:26)
[2020-12-12 15:54] LABS: Glucose, Whole Blood 177 mg/dL (60-115)
--- NOTE | 2020-12-12 16:45 | PC.NURSE ---
pt has been lethargic with poor PO intake. She has been encouraged to drink fluid hourly. Heart rate improved from 110 to 94. Will continue to encourage fluids and monitor
[2020-12-12 19:33] LABS: Glucose, Whole Blood 206 mg/dL (60-115)
[2020-12-12] MEDS: Gabapentin 100 MG CAPSULE PO (19:40)
[2020-12-12] MEDS: Montelukast Sodium 10 MG TABLET PO (19:40)
[2020-12-12] MEDS: Insulin Glargine,Hum.rec.anlog 100 UNIT/ML 10 ML VIAL 35 UNIT SUBCUT (19:44)
--- NOTE | 2020-12-12 21:19 | W.PM.IDCN ---
History of Present Illness Data of Consult Service Date: 12/12/20 Requesting physician: Alex Edwards Primary Care Provider: Unknown Physician HPI Reason for consult: COVID She presents to hospital on 12/08 for nausea,vomiting and diarrhea. She has fatigue as well. She went home and presented back to hospital with 12/11 and has no oxygen requirements. Review of Systems Review of Systems: Yes all other systems are reviewed and are negative PMFSH Past Medical History Medical History Asthma Bronchopneumonia Diabetes HTN (hypertension) ILD (interstitial lung disease) Pulmonary nodules Family History Family History Other Cancer Diabetes Heart problem Family history: reviewed and not pertinent Surgical History Surgical History History of heart artery stent (~03/2019) History of hysterectomy Hx of colonoscopy (~06/2015) Social History Social History Alcohol intake: never Smoking Status: Never smoker service: No Current occupational status: retired [employer] Allergies Allergy/AdvReac Type Severity Reaction Status Date / Time aspirin [Aspirin] Allergy Severe Rash Verified 11/30/20 13:53 clarithromycin [From Biaxin] Allergy Severe Rash Verified 11/30/20 13:53 Penicillins Allergy Severe Rash Verified 11/30/20 13:53 ampicillin [AMPICILLIN] Allergy Intermediate RASH Verified 11/30/20 13:53 Motrin Allergy Unknown Rash Uncoded 11/30/20 13:53 From AVELOX AdvReac Intermediate RASH Uncoded 11/30/20 13:53 Home Medications Medication Instructions Recorded Confirmed Type aspirin 81 mg tablet,delayed 81 mg PO DAILY 11/30/20 12/11/20 History release atorvastatin 80 mg tablet 80 mg PO QAM 11/30/20 12/11/20 History calcium carbonate 600 mg (1,500 1 tab PO DAILY 11/30/20 12/11/20 History mg)-vitamin D3 200 unit tablet carvedilol 3.125 mg tablet 3.125 mg PO BID 11/30/20 12/11/20 History clopidogrel 75 mg tablet 75 mg PO QAM 11/30/20 12/11/20 History diltiazem HCl 240 mg 240 mg PO DAILY 11/30/20 12/11/20 History capsule,extended release 24 hr enalapril maleate 10 mg tablet 10 mg PO DAILY 11/30/20 12/11/20 History fluticasone propionate 50 1 - 2 spray INTRANASAL DAILY PRN 11/30/20 12/11/20 History mcg/actuation nasal spray,suspension glipizide 10 mg tablet 10 mg PO DAILY 11/30/20 12/11/20 History insulin glargine 100 unit/mL (3 42 unit SUBCUT BEDTIME 11/30/20 12/11/20 History mL) subcutaneous pen isosorbide mononitrate 60 mg 60 mg PO QAM 11/30/20 12/11/20 History tablet,extended release 24 hr metformin 500 mg tablet,extended 1,000 mg PO BID 11/30/20 12/11/20 History release 24 hr zafirlukast 20 mg tablet 20 mg PO BID 11/30/20 12/11/20 History Daliresp 500 mcg PO DAILY 12/11/20 12/11/20 History albuterol sulfate 1 inh INHALATION Q4H PRN 12/11/20 12/11/20 History albuterol sulfate 2.5 mg INHALATION Q6H PRN 12/11/20 12/11/20 History azithromycin 1 tab PO 3XW 12/11/20 12/11/20 History benzonatate 100 mg PO TID PRN 12/11/20 12/11/20 History [id number] 1 inh INHALATION DAILY 12/11/20 12/11/20 History [Trelegy Ellipta] gabapentin 100 mg PO BEDTIME 12/11/20 12/11/20 History ipratropium-albuterol [DuoNeb] 3 ml INHALATION QID 12/11/20 12/11/20 History multivitamin [TAB A OPHELIA] 1 tab PO DAILY 12/11/20 12/11/20 History prednisone 40 mg PO DAILY 12/11/20 12/11/20 History Physical Exam Vital Signs: Vital Signs: Last Vital Signs Temp 98.4 F 12/12/20 19:13 Pulse 93 12/12/20 19:40 Resp 20 12/12/20 19:13 BP 120/55 L 12/12/20 19:40 Pulse Ox 99 12/12/20 19:13 Body Mass Index 25.7 Const: General: cooperative HENMT: Head: Yes normal to inspection Mouth: Normal oral and palatal mucosa present Eyes: General: appearance normal, both eyes and all related structures Resp: Effort & Inspection: normal respiratory effort Cardio: Rate: regular rate Rhythm: regular rhythm GI: Palpation (GI): Soft to palpation and nontender : General: Yes no CVA tenderness Back/Spine/Pelvis: Back: no CVA tenderness Skin: General skin exam: no rashes or lesions noted Extrem: General: Yes normal to inspection Assessment and Plan (1) Pneumonia due to COVID-19 virus: Status: Acute With COVID over a week and no oxygen requirements would not use Remdesivir Would continue Dexamethasone Results Labs CBC & Chem 7: 12/26/20 04:56 12/28/20 08:12 Labs: Short CBC 12/12/20 Range/Units 06:47 WBC 5.1 (4.8-10.8) X10*3/uL Hgb 10.5 L (12.0-16.0) g/dl Hct 33.1 L (37-47) % Plt Count 144 L (160-400) X10*3/uL BMP 12/12/20 06:47 Sodium 141 Potassium 3.5 Chloride 106 Carbon Dioxide 26 BUN 15 Creatinine 0.59 Calcium 8.1 L Microbiology Microbiology Results: Microbiology 12/11/20 10:53 Blood - Venous Blood Culture - Preliminary No growth after 24 hours. 12/11/20 10:51 Blood - Venous Blood Culture - Preliminary No growth after 24 hours.
[2020-12-13] VITALS (10 sets, daily range): BP systolic 96–157; BP diastolic 50–78; PULSE 80–113; RESP 19–22; TEMP 36.4–37.2; O2SAT 88–96
[2020-12-13] MEDS: Doxycycline Hyclate 100 MG in 0.9 % Sodium Chloride 250 ML 166.67 MG IV ×2 (02:24→14:11)
[2020-12-13 07:11] LABS: Anion Gap 14 (12-20); Blood Urea Nitrogen 15 mg/dL (9-16); Calcium 8.3 mg/dL (8.4-10.2); Carbon Dioxide 25 mmol/L (22-29); Chloride 102 mmol/L (96-108); Creatinine Clr Calc Pharmacy 73.9; Estimated Glomerular Filt Rate > 60; Glucose Random 112 mg/dL (60-115); Potassium 3.4 mmol/l (3.3-5.1); Sodium 138 mmol/L (135-145)
[2020-12-13 07:38] LABS: Glucose, Whole Blood 98 mg/dL (60-115)
[2020-12-13] MEDS: Calcium + Vitamin D 250 MG TABLET 500 MG PO (07:48)
[2020-12-13] MEDS: 0.9 % Sodium Chloride Flush 3 ML SYRINGE IVFLUSH ×3 (07:48→20:14)
[2020-12-13] MEDS: Omeprazole 20 MG CAPSULE.DR PO ×2 (07:49→20:14)
[2020-12-13] MEDS: Enalapril Maleate 10 MG TABLET PO (07:49)
[2020-12-13] MEDS: Multivitamin TABLET 1 TAB PO (07:49)
[2020-12-13] MEDS: Isosorbide Mononitrate 60 MG TAB.ER.24H PO (07:49)
[2020-12-13] MEDS: carvediloL 3.125 MG TABLET PO ×2 (07:49→20:14)
[2020-12-13] MEDS: Clopidogrel Bisulfate 75 MG TABLET PO (07:49)
[2020-12-13] MEDS: Atorvastatin Calcium 80 MG TABLET PO (07:49)
[2020-12-13] MEDS: dexAMETHasone sod phosphate 4 MG/ML VIAL 6 MG IVPUSH (07:50)
[2020-12-13] MEDS: dilTIAZem HCL CD 240 MG CAP.ER.DEG PO (07:50)
[2020-12-13] MEDS: Acetaminophen 325 MG TABLET 650 MG PO (07:50)
[2020-12-13] MEDS: Aspirin Enteric Coated 81 MG TABLET.DR PO (07:50)
[2020-12-13] MEDS: Butalb/Acetamin/Caff 50/325/40 TABLET 1 TAB PO (10:05)
--- NOTE | 2020-12-13 10:19 | PC.NURSE ---
Patient with decreased oxygen saturation of 88% on room air, patient on 2L nasal cannula stats at 93%. Dr. Flores made aware and at bedside. hydrocrane operator at bedside and patient educated on incentive spirometer. No further concerns at this time.
--- NOTE | 2020-12-13 11:04 | HO.PM.IMPN ---
Subjective Subjective Date of Service: 12/13/20 Interval History: the patient was seen and evaluated this morning Laying in bed, complaining on of headache, feels exhausted, tired and having pain all over her body Reports mild nausea and shortness of breath, no chest pain Requiring oxygen supplement today for hypoxemia No reported other overnight events. Systemic review: No fever, chills but reports headache and generalized weakness No chest pain, palpitation Mild shortness of breath with exertion or coughing No abdominal pain but reporting nausea No urinary symptoms No any rash or wounds Physical Exam Vital Signs: Vital Signs: Last Vital Signs Temp 98.1 F 12/13/20 07:50 Pulse 113 H 12/13/20 07:50 Resp 22 H 12/13/20 07:50 BP 157/78 H 12/13/20 07:50 Pulse Ox 93 12/13/20 08:06 Body Mass Index 25.7 Const: Other: Constitutional : Alert , oriented to self and place, in mild distress Neck : Normal inspection, Supple Cardiovascular : RRR, S1 S2, no lower extremity edema Respiratory : Decreased bilateral air entry, mild respiratory distress, on nasal cannula Gastrointestinal: soft, lax, Normal bowel sounds, generalized abdominal tenderness Skin : Warm/Dry, No rash Neurological : Alert & oriented x3, No focal deficit Objective Data Current Medications Generic Name Dose Route Start Last Admin Trade Name Jacobq PRN Reason Stop Dose Admin Acetaminophen 650 mg 12/11/20 14:01 12/13/20 07:50 Acetaminophen 325 Mg Tablet PO 650 mg Q6H PRN Administration Pain, Mild (Pain Scale 1-3) Aspirin 81 mg 12/12/20 09:00 12/13/20 07:50 Aspirin Enteric Coated 81 Mg Tablet. PO 81 mg DAILY [facility] Administration Atorvastatin Calcium 80 mg 12/11/20 14:01 12/13/20 07:49 Atorvastatin Calcium 80 Mg Tablet PO 80 mg DAILY [facility] Administration Benzonatate 100 mg 12/11/20 14:01 Benzonatate 100 Mg Capsule PO TID PRN Cough Calcium Carbonate/Cholecalciferol 500 mg 12/12/20 09:00 12/13/20 07:48 Calcium + Vitamin D 250 Mg Tablet PO 500 mg DAILY [facility] Administration Carvedilol 3.125 mg 12/11/20 21:00 12/13/20 07:49 Carvedilol 3.125 Mg Tablet PO 3.125 mg BID G[facility] Administration Protocol Clopidogrel Bisulfate 75 mg 12/11/20 14:01 12/13/20 07:49 Clopidogrel Bisulfate 75 Mg Tablet PO 75 mg DAILY [facility] Administration Dexamethasone Sodium Phosphate 6 mg 12/12/20 09:00 12/13/20 07:50 Dexamethasone Sod Phosphate 4 Mg/Ml Vial IVPUSH 6 mg DAILY [facility] Administration Diltiazem HCl 240 mg 12/12/20 09:00 12/13/20 07:50 Diltiazem Hcl Cd 240 Mg Cap.Er.Deg PO 240 mg DAILY [facility] Administration Protocol Enalapril Maleate 10 mg 12/12/20 09:00 12/13/20 07:49 Enalapril Maleate 10 Mg Tablet PO 10 mg DAILY [facility] Administration Protocol Gabapentin 100 mg 12/11/20 21:00 12/12/20 19:40 Gabapentin 100 Mg Capsule PO 100 mg BEDTIME [facility] Administration Glipizide 10 mg 12/12/20 09:00 12/12/20 09:42 Glipizide 10 Mg Tablet PO 10 mg DAILY GAMAILEL Administration Doxycycline Hyclate 100 mg/ 250 mls @ 166.67 mls/hr 12/12/20 15:00 12/13/20 03:52 Sodium Chloride IV Infused Q12H G[facility]IEL Infusion Insulin Glargine 35 unit 12/12/20 21:00 12/12/20 19:44 Insulin Glargine,Hum.Rec.Anlog 100 Unit/Ml 10 Ml Vial SUBCUT 35 unit BEDTIME [facility] Administration Isosorbide Mononitrate 60 mg 12/11/20 14:01 12/13/20 07:49 Isosorbide Mononitrate 60 Mg Tab.Er.24h PO 60 mg DAILY [facility] Administration Protocol Montelukast Sodium 10 mg 12/11/20 21:00 12/12/20 19:40 Montelukast Sodium 10 Mg Tablet PO 10 mg BEDTIME [facility] Administration Multivitamins/Vitamin C 1 tab 12/12/20 09:00 12/13/20 07:49 Multivitamin Tablet PO 1 tab DAILY [facility] Administration Non-Formulary Medication 1 inhalation 12/12/20 09:00 [id number] [Trelegy Ellipta] INHALE DAILY [facility] Non-Formulary Medication 500 mcg 12/12/20 09:00 Roflumilast [Daliresp] PO DAILY [facility] Omeprazole 20 mg 12/11/20 21:00 12/13/20 07:49 Omeprazole 20 Mg Capsule.Dr PO 20 mg BID [facility] Administration Ondansetron HCl 4 mg 12/11/20 14:01 12/12/20 12:52 Ondansetron Hcl 4 Mg/2 Ml Vial IVPUSH 4 mg Q8H PRN Administration Nausea and Vomiting Pharmacy Consult 1 each 12/11/20 10:47 Consult Rx Perform Med Rec MISCELLANE ONCE PRN Consult order Sodium Chloride 3 ml 12/11/20 16:00 12/13/20 07:48 0.9 % Sodium Chloride Flush 3 Ml Syringe IVFLUSH 3 ml QSHIFT G[facility]ALIEL Administration Labs CBC & Chem 7: 12/12/20 06:47 12/13/20 06:26 Microbiology Microbiology Results: Microbiology 12/11/20 10:53 Blood - Venous Blood Culture - Preliminary No growth after 24 hours. 12/11/20 10:51 Blood - Venous Blood Culture - Preliminary No growth after 24 hours. Assessment and Plan (1) Pneumonia due to COVID-19 virus: Status: Acute Assessment and Plan: 75 year old women admitted with Covid pneumonia. Mostly GI symptoms. Acute hypoxic respiratory failure covid 19 infection Positive PCR on 12/08/20 Wean oxygen down as tolerated Continue Decadron day 3 Continue doxycycline b.i.d. for any atypical infection Evaluated by ID, no role for remdesivir Consider plasma treatment if no improvement by tomorrow Transaminitis. Likely viral from Covid-19 continue to monitor Hypertension. Restart home medications Hypoglycemic event Type 2 Diabetes. Discontinue glipizide Decrease Lantus insulin 35 units at night Sliding scale, ADA diet Hyperlipidemia. Statin. GERD. PPI. DVT PPX Lovenox (2) Acute respiratory failure with hypoxia: Status: Acute (3) ILD (interstitial lung disease): Problem details: mild peripheral disease Status: Acute
[2020-12-13 11:24] LABS: Glucose, Whole Blood 167 mg/dL (60-115)
[2020-12-13 15:34] LABS: Glucose, Whole Blood 353 mg/dL (60-115)
[2020-12-13] MEDS: Insulin Lispro 100 UNIT/ML 3 ML VIAL SUBCUT ×2 (16:42→20:14)
[2020-12-13 19:40] LABS: Glucose, Whole Blood 269 mg/dL (60-115)
[2020-12-13] MEDS: Insulin Glargine,Hum.rec.anlog 100 UNIT/ML 10 ML VIAL 35 UNIT SUBCUT (20:13)
[2020-12-13] MEDS: Gabapentin 100 MG CAPSULE PO (20:14)
[2020-12-13] MEDS: Montelukast Sodium 10 MG TABLET PO (20:14)
[2020-12-14] VITALS (10 sets, daily range): BP systolic 114–147; BP diastolic 68–89; PULSE 77–92; RESP 15–29; TEMP 36.6–37; O2SAT 78–97
[2020-12-14] MEDS: Acetaminophen 325 MG TABLET 650 MG PO (02:40)
[2020-12-14] MEDS: Doxycycline Hyclate 100 MG in 0.9 % Sodium Chloride 250 ML 166.67 MG IV (02:40)
[2020-12-14 06:44] LABS: Hematocrit 33.1 % (37-47); Hemoglobin 10.9 g/dl (12.0-16.0); Mean Corpuscular HGB Conc 32.9 g/dl (31.0-35.0); Mean Corpuscular Hemoglobin 30.6 pg (27.0-33.0); Mean Platelet Volume 9.3 fL (9.4-12.3); Platelet Count 189 X10*3/uL (160-400); Red Blood Count 3.56 X10*6/uL (4.20-5.50); Red Cell Distribution Width 13.9 % (11.0-16.0); White Blood Count 4.6 X10*3/uL (4.8-10.8)
[2020-12-14 07:06] LABS: Anion Gap 15 (12-20); Blood Urea Nitrogen 17 mg/dL (9-16); Calcium 8.2 mg/dL (8.4-10.2); Carbon Dioxide 22 mmol/L (22-29); Chloride 105 mmol/L (96-108); Creatinine Clr Calc Pharmacy 76.4; Estimated Glomerular Filt Rate > 60; Glucose Random 87 mg/dL (60-115); Potassium 3.5 mmol/l (3.3-5.1); Sodium 138 mmol/L (135-145)
[2020-12-14 08:16] LABS: SARS COV2 IgG Negative (Negative)
[2020-12-14 08:25] LABS: Glucose, Whole Blood 68 mg/dL (60-115)
[2020-12-14 09:23] LABS: Glucose, Whole Blood 135 mg/dL (60-115)
[2020-12-14] MEDS: dexAMETHasone sod phosphate 4 MG/ML VIAL 6 MG IVPUSH (09:56)
[2020-12-14] MEDS: 0.9 % Sodium Chloride Flush 3 ML SYRINGE IVFLUSH ×3 (09:56→20:24)
[2020-12-14] MEDS: Calcium + Vitamin D 250 MG TABLET 500 MG PO (10:00)
[2020-12-14] MEDS: Butalb/Acetamin/Caff 50/325/40 TABLET 1 TAB PO (10:00)
[2020-12-14] MEDS: Multivitamin TABLET 1 TAB PO (10:00)
[2020-12-14] MEDS: Atorvastatin Calcium 80 MG TABLET PO (10:01)
[2020-12-14] MEDS: Aspirin Enteric Coated 81 MG TABLET.DR PO (10:01)
[2020-12-14] MEDS: Omeprazole 20 MG CAPSULE.DR PO ×2 (10:01→20:23)
[2020-12-14] MEDS: Clopidogrel Bisulfate 75 MG TABLET PO (10:01)
[2020-12-14] MEDS: Isosorbide Mononitrate 60 MG TAB.ER.24H PO (10:02)
[2020-12-14] MEDS: dilTIAZem HCL CD 240 MG CAP.ER.DEG PO (10:11)
[2020-12-14] MEDS: carvediloL 3.125 MG TABLET PO ×2 (10:12→20:23)
--- NOTE | 2020-12-14 12:02 | P.PNIM_ITS ---
Subjective Subjective Date of Service: 12/14/20 Interval History: the patient was seen and evaluated this morning Laying in bed, complaining on of headache, feels tired and having pain all over her body Reports mild nausea and shortness of breath, no chest pain Requiring oxygen supplement today for hypoxemia No reported other overnight events. Systemic review: No fever, chills but reports headache and generalized weakness No chest pain, palpitation Mild shortness of breath with exertion or coughing No abdominal pain but reporting nausea No urinary symptoms No any rash or wounds Physical Exam Vital Signs: Vital Signs: Last Vital Signs Temp 97.9 F 12/14/20 11:24 Pulse 88 12/14/20 11:24 Resp 18 12/14/20 11:24 BP 127/69 12/14/20 11:24 Pulse Ox 94 12/14/20 11:24 Body Mass Index 25.7 Const: Other: Constitutional : Alert , oriented to self and place, in mild distress Neck : Normal inspection, Supple Cardiovascular : RRR, S1 S2, no lower extremity edema Respiratory : Decreased bilateral air entry, mild respiratory distress, on nasal cannula Gastrointestinal: soft, lax, Normal bowel sounds, generalized abdominal tenderness Skin : Warm/Dry, No rash Neurological : Alert & oriented x3, No focal deficit Objective Data Current Medications Generic Name Dose Route Start Last Admin Trade Name Freq PRN Reason Stop Dose Admin Acetaminophen 650 mg 12/11/20 14:01 12/14/20 02:40 Acetaminophen 325 Mg Tablet PO 650 mg Q6H PRN Administration Pain, Mild (Pain Scale 1-3) Acetaminophen/Butalbital/Caffeine 1 tab 12/14/20 09:44 12/14/20 10:00 Butalb/Acetamin/Caff 50/325/40 Tablet PO 1 tab RQ6H PRN Administration Headache Aspirin 81 mg 12/12/20 09:00 12/14/20 10:01 Aspirin Enteric Coated 81 Mg Tablet. PO 81 mg DAILY [facility] Administration Atorvastatin Calcium 80 mg 12/11/20 14:01 12/14/20 10:01 Atorvastatin Calcium 80 Mg Tablet PO 80 mg DAILY [facility] Administration Benzonatate 100 mg 12/11/20 14:01 Benzonatate 100 Mg Capsule PO TID PRN Cough Calcium Carbonate/Cholecalciferol 500 mg 12/12/20 09:00 12/14/20 10:00 Calcium + Vitamin D 250 Mg Tablet PO 500 mg DAILY [facility] Administration Carvedilol 3.125 mg 12/11/20 21:00 12/14/20 10:12 Carvedilol 3.125 Mg Tablet PO 3.125 mg BID G[facility]ALIEL Administration Protocol Clopidogrel Bisulfate 75 mg 12/11/20 14:01 12/14/20 10:01 Clopidogrel Bisulfate 75 Mg Tablet PO 75 mg DAILY [facility] Administration Dexamethasone Sodium Phosphate 6 mg 12/12/20 09:00 12/14/20 09:56 Dexamethasone Sod Phosphate 4 Mg/Ml Vial IVPUSH 6 mg DAILY [facility] Administration Diltiazem HCl 240 mg 12/12/20 09:00 12/14/20 10:11 Diltiazem Hcl Cd 240 Mg Cap.Er.Deg PO 240 mg DAILY [facility] Administration Protocol Enalapril Maleate 10 mg 12/12/20 09:00 12/13/20 07:49 Enalapril Maleate 10 Mg Tablet PO 10 mg DAILY [facility] Administration Protocol Gabapentin 100 mg 12/11/20 21:00 12/13/20 20:14 Gabapentin 100 Mg Capsule PO 100 mg BEDTIME G[facility]LAIEL Administration Doxycycline Hyclate 100 mg/ 250 mls @ 166.67 mls/hr 12/12/20 15:00 12/14/20 04:10 Sodium Chloride IV Infused Q12H G[facility] Infusion Insulin Glargine 35 unit 12/12/20 21:00 12/13/20 20:13 Insulin Glargine,Hum.Rec.Anlog 100 Unit/Ml 10 Ml Vial SUBCUT 35 unit BEDTIME GAMALIEL Administration Insulin Human Lispro 0 unit 12/13/20 16:30 12/14/20 08:43 Insulin Lispro 100 Unit/Ml 3 Ml Vial SUBCUT Not Given QIDACHS [facility] Protocol Isosorbide Mononitrate 60 mg 12/11/20 14:01 12/14/20 10:02 Isosorbide Mononitrate 60 Mg Tab.Er.24h PO 60 mg DAILY G[facility]ALIEL Administration Protocol Montelukast Sodium 10 mg 12/11/20 21:00 12/13/20 20:14 Montelukast Sodium 10 Mg Tablet PO 10 mg BEDTIME G[facility]ALIEL Administration Multivitamins/Vitamin C 1 tab 12/12/20 09:00 12/14/20 10:00 Multivitamin Tablet PO 1 tab DAILY [facility] Administration Non-Formulary Medication 1 inhalation 12/12/20 09:00 [id number] [Trelegy Ellipta] INHALE DAILY [facility] Non-Formulary Medication 500 mcg 12/12/20 09:00 Roflumilast [Daliresp] PO DAILY [facility] Omeprazole 20 mg 12/11/20 21:00 12/14/20 10:01 Omeprazole 20 Mg Capsule. PO 20 mg BID G[facility]IEL Administration Ondansetron HCl 4 mg 12/11/20 14:01 12/12/20 12:52 Ondansetron Hcl 4 Mg/2 Ml Vial IVPUSH 4 mg Q8H PRN Administration Nausea and Vomiting Pharmacy Consult 1 each 12/11/20 10:47 Consult Rx Perform Med Rec MISCELLANE ONCE PRN Consult order Sodium Chloride 3 ml 12/11/20 16:00 12/14/20 09:56 0.9 % Sodium Chloride Flush 3 Ml Syringe IVFLUSH 3 ml QSHIFT [facility] Administration Labs CBC & Chem 7: 12/14/20 06:13 12/14/20 06:13 Microbiology Microbiology Results: Microbiology 12/11/20 10:53 Blood - Venous Blood Culture - Preliminary No growth after 48 hours. 12/11/20 10:51 Blood - Venous Blood Culture - Preliminary No growth after 48 hours. Assessment and Plan (1) Pneumonia due to COVID-19 virus: Status: Acute Assessment and Plan: (2) Acute respiratory failure with hypoxia: Status: Acute (3) ILD (interstitial lung disease): Problem details: mild peripheral disease Status: Acute Assessment and Plan: 75 year old women admitted with Covid pneumonia. Mostly GI symptoms. Acute hypoxic respiratory failure covid 19 infection Positive PCR on 12/08/20 Wean oxygen down as tolerated Continue Decadron day 4 Continue doxycycline b.i.d. for any atypical infection Evaluated by ID, no role for remdesivir Consider dc with home oxygen in 1-2 days if patient stable on 2-3L Transaminitis. mild, stable Likely 2/2 Covid-19 Hypertension. Restart home medications Hypoglycemic event Type 2 Diabetes. Discontinue glipizide Decrease Lantus insulin 35 units at night Sliding scale, ADA diet Hyperlipidemia. Statin. GERD. PPI. DVT PPX Lovenox
[2020-12-14 12:07] LABS: Glucose, Whole Blood 183 mg/dL (60-115)
--- NOTE | 2020-12-14 12:19 | MHC.CM.PN ---
Pt remains in the [facility] unit receiving treatment for COVID. Is presently on O2 and MD feels she may need O2 at the time of d/c. Will await home O2 eval and respiratory therapy intervention for coordination of care. Pt may need [facility] authorization for skilled RN visits should she require O2. [facility] is closed today in recognition of the holiday. Will follow MD notes on 12/15 for possible home O2 needs/skilled RN visits and BLS transport home. Pt resides alone but has a son who is her compensated SLP and assists pt daily with ADL needs. CM to follow for [facility] auth of VNA and VNA referral to an agency of pt's choice.
[2020-12-14] MEDS: Insulin Lispro 100 UNIT/ML 3 ML VIAL SUBCUT ×3 (13:29→20:23)
[2020-12-14] MEDS: Enoxaparin Sodium 40 MG/0.4 ML SYRINGE SUBCUT (14:04)
[2020-12-14] MEDS: Benzonatate 100 MG CAPSULE PO ×2 (14:04→20:23)
[2020-12-14] MEDS: Doxycycline Hyclate 100 MG in 0.9 % Sodium Chloride 250 ML 167 MG IV (14:05)
[2020-12-14 16:44] LABS: Glucose, Whole Blood 200 mg/dL (60-115)
[2020-12-14 18:56] LABS: Glucose Urine UA 100 MG/DL (NEG); Leukocyte Esterase Urine TRACE (NEG); Nitrite Urine NEG (NEG); PH 6.5 (5.0-8.0); Specific Gravity - Urine 1.015 (1.005-1.025); Urine Blood NEG (NEG); Urine Ketones NEG (NEG); Urine Protein 1+ MG/DL (NEG-TRACE)
[2020-12-14 18:58] LABS: Appearance Urine CLEAR; Color Urine YELLOW
[2020-12-14 19:08] LABS: RBC Urine 0-2 /HPF (0); Squamous Epithelial Cell Urine 2+ /LPF
[2020-12-14 20:16] LABS: Glucose, Whole Blood 199 mg/dL (60-115)
[2020-12-14] MEDS: Insulin Glargine,Hum.rec.anlog 100 UNIT/ML 10 ML VIAL 35 UNIT SUBCUT (20:22)
[2020-12-14] MEDS: Gabapentin 100 MG CAPSULE PO (20:23)
[2020-12-14] MEDS: Montelukast Sodium 10 MG TABLET PO (20:23)
[2020-12-14] MEDS: Albuterol Sulfate 90 MCG 8 GM INHALER 4 PUFF INHALE (22:57)
[2020-12-15] VITALS (7 sets, daily range): BP systolic 116–172; BP diastolic 65–90; PULSE 87–98; RESP 15–29; TEMP 36.7–36.9; O2SAT 90–95
[2020-12-15] MEDS: Doxycycline Hyclate 100 MG in 0.9 % Sodium Chloride 250 ML 167 MG IV (02:27)
[2020-12-15 06:06] LABS: Glucose, Whole Blood 108 mg/dL (60-115)
[2020-12-15] MEDS: Acetaminophen 325 MG TABLET 650 MG PO ×2 (06:27→17:06)
--- NOTE | 2020-12-15 06:32 | PC.NURSE ---
At 0400 pt began to c/o of dizziness after using commode. Vss, sinus on tele. Poc 108. Dr Madrigal made aware. Pt up to chair with 1 assist, chair alarm on. SpO2 >90% on 3L nasal cannula.
[2020-12-15 07:34] LABS: Glucose, Whole Blood 117 mg/dL (60-115)
[2020-12-15 08:06] LABS: Alanine Aminotransferase 98 U/L (0-31); Albumin Level 3.5 g/dL (3.5-5.0); Alkaline Phosphatase 61 U/L (39-117); Anion Gap 17 (12-20); Aspartate Amino Transferase 139 U/L (5-31); Bilirubin Direct 0.2 mg/dL (0.0-0.5); Bilirubin Total 0.4 mg/dL (0.0-1.0); Blood Urea Nitrogen 15 mg/dL (9-16); Calcium 8.2 mg/dL (8.4-10.2); Carbon Dioxide 21 mmol/L (22-29); Chloride 106 mmol/L (96-108); Creatinine Clr Calc Pharmacy 71.5; Estimated Glomerular Filt Rate > 60; Glucose Random 109 mg/dL (60-115); Potassium 3.5 mmol/l (3.3-5.1); Sodium 140 mmol/L (135-145); Total Protein 6.3 g/dL (6.5-8.0)
[2020-12-15] MEDS: dexAMETHasone sod phosphate 4 MG/ML VIAL 6 MG IVPUSH (08:18)
[2020-12-15] MEDS: Isosorbide Mononitrate 60 MG TAB.ER.24H PO (08:19)
[2020-12-15] MEDS: 0.9 % Sodium Chloride Flush 3 ML SYRINGE IVFLUSH (08:19)
[2020-12-15] MEDS: dilTIAZem HCL CD 240 MG CAP.ER.DEG PO (08:19)
[2020-12-15] MEDS: Omeprazole 20 MG CAPSULE.DR PO ×2 (08:19→21:46)
[2020-12-15] MEDS: Multivitamin TABLET 1 TAB PO (08:19)
[2020-12-15] MEDS: Atorvastatin Calcium 80 MG TABLET PO (08:19)
[2020-12-15] MEDS: Aspirin Enteric Coated 81 MG TABLET.DR PO (08:19)
[2020-12-15] MEDS: carvediloL 3.125 MG TABLET PO ×2 (08:19→21:46)
[2020-12-15] MEDS: Calcium + Vitamin D 250 MG TABLET 500 MG PO (08:19)
[2020-12-15] MEDS: Clopidogrel Bisulfate 75 MG TABLET PO (08:19)
[2020-12-15 11:14] LABS: Glucose, Whole Blood 170 mg/dL (60-115)
[2020-12-15] MEDS: Enoxaparin Sodium 40 MG/0.4 ML SYRINGE SUBCUT (12:02)
[2020-12-15] MEDS: Insulin Lispro 100 UNIT/ML 3 ML VIAL SUBCUT ×3 (12:02→21:50)
--- NOTE | 2020-12-15 13:03 | P.PNIM_ITS ---
Subjective Subjective Date of Service: 12/15/20 Interval History: Patient resting in bed complaining of generalized weakness , dizziness, cough and shortness of breath with activity oxygenation 92% on room air, no acute issues overnight. 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 Neck is supple no JVD. CVS regular rate rhythm, Respiratory lungs clear to auscultation, diminished, no respiratory distress, no wheeze, no rhonchi. Gastrointestinal abdomen soft, nontender, bowel sounds audible Extremities no clubbing,no cyanosis or edema. Neuro nonfocal, speech clear. Skin no rash Objective Data Current Medications Generic Name Dose Route Start Last Admin Trade Name Freq PRN Reason Stop Dose Admin Acetaminophen 650 mg 12/11/20 14:01 12/15/20 06:27 Acetaminophen 325 Mg Tablet PO 650 mg Q6H PRN Administration Pain, Mild (Pain Scale 1-3) Acetaminophen/Butalbital/Caffeine 1 tab 12/14/20 09:44 12/14/20 10:00 Butalb/Acetamin/Caff 50/325/40 Tablet PO 1 tab RQ6H PRN Administration Headache Albuterol Sulfate 2.5 mg 12/14/20 22:06 Albuterol Sulfate (0.083%) 2.5 Mg/3 Ml Vial.Neb INHALE Q2H PRN Shortness of Breath/Wheezing Albuterol Sulfate 4 puff 12/14/20 22:44 12/14/20 22:57 Albuterol Sulfate 90 Mcg 8 Gm Inhaler INHALE 4 puff Q2H PRN Administration Shortness of Breath/Wheezing Aspirin 81 mg 12/12/20 09:00 12/15/20 08:19 Aspirin Enteric Coated 81 Mg Tablet.Dr PO 81 mg DAILY G[facility]EL Administration Atorvastatin Calcium 80 mg 12/11/20 14:01 12/15/20 08:19 Atorvastatin Calcium 80 Mg Tablet PO 80 mg DAILY [facility] Administration Benzonatate 100 mg 12/11/20 14:01 12/14/20 20:23 Benzonatate 100 Mg Capsule PO 100 mg TID PRN Administration Cough Calcium Carbonate/Cholecalciferol 500 mg 12/12/20 09:00 12/15/20 08:19 Calcium + Vitamin D 250 Mg Tablet PO 500 mg DAILY G[facility] Administration Carvedilol 3.125 mg 12/11/20 21:00 12/15/20 08:19 Carvedilol 3.125 Mg Tablet PO 3.125 mg BID G[facility]EL Administration Protocol Clopidogrel Bisulfate 75 mg 12/11/20 14:01 12/15/20 08:19 Clopidogrel Bisulfate 75 Mg Tablet PO 75 mg DAILY [facility] Administration Dexamethasone Sodium Phosphate 6 mg 12/12/20 09:00 12/15/20 08:18 Dexamethasone Sod Phosphate 4 Mg/Ml Vial IVPUSH 6 mg DAILY G[facility] Administration Diltiazem HCl 240 mg 12/12/20 09:00 12/15/20 08:19 Diltiazem Hcl Cd 240 Mg Cap.Er.Deg PO 240 mg DAILY G[facility] Administration Protocol Enalapril Maleate 10 mg 12/12/20 09:00 12/13/20 07:49 Enalapril Maleate 10 Mg Tablet PO 10 mg DAILY [facility] Administration Protocol Enoxaparin Sodium 40 mg 12/14/20 13:00 12/15/20 12:02 Enoxaparin Sodium 40 Mg/0.4 Ml Syringe SUBCUT 40 mg Q24H [facility] Administration Gabapentin 100 mg 12/11/20 21:00 12/14/20 20:23 Gabapentin 100 Mg Capsule PO 100 mg BEDTIME G[facility] Administration Doxycycline Hyclate 100 mg/ 250 mls @ 166.67 mls/hr 12/12/20 15:00 12/15/20 06:05 Sodium Chloride IV Infused Q12H G[facility] Infusion Insulin Glargine 35 unit 12/12/20 21:00 12/14/20 20:22 Insulin Glargine,Hum.Rec.Anlog 100 Unit/Ml 10 Ml Vial SUBCUT 35 unit BEDTIME G[facility] Administration Insulin Human Lispro 0 unit 12/13/20 16:30 12/15/20 12:02 Insulin Lispro 100 Unit/Ml 3 Ml Vial SUBCUT 2 unit QIDACHS [facility] Administration Protocol Isosorbide Mononitrate 60 mg 12/11/20 14:01 12/15/20 08:19 Isosorbide Mononitrate 60 Mg Tab.Er.24h PO 60 mg DAILY G[facility]ALIEL Administration Protocol Montelukast Sodium 10 mg 12/11/20 21:00 12/14/20 20:23 Montelukast Sodium 10 Mg Tablet PO 10 mg BEDTIME [facility] Administration Multivitamins/Vitamin C 1 tab 12/12/20 09:00 12/15/20 08:19 Multivitamin Tablet PO 1 tab DAILY [facility] Administration Non-Formulary Medication 1 inhalation 12/12/20 09:00 [id number] [Trelegy Ellipta] INHALE DAILY [facility] Non-Formulary Medication 500 mcg 12/12/20 09:00 Roflumilast [Daliresp] PO DAILY [facility] Omeprazole 20 mg 12/11/20 21:00 12/15/20 08:19 Omeprazole 20 Mg Capsule.Dr PO 20 mg BID G[facility] Administration Ondansetron HCl 4 mg 12/11/20 14:01 12/12/20 12:52 Ondansetron Hcl 4 Mg/2 Ml Vial IVPUSH 4 mg Q8H PRN Administration Nausea and Vomiting Pharmacy Consult 1 each 12/11/20 10:47 Consult Rx Perform Med Rec MISCELLANE ONCE PRN Consult order Sodium Chloride 3 ml 12/11/20 16:00 12/15/20 08:19 0.9 % Sodium Chloride Flush 3 Ml Syringe IVFLUSH 3 ml QSHIFT [facility] Administration Labs CBC & Chem 7: 12/14/20 06:13 12/15/20 07:32 Microbiology Microbiology Results: Microbiology 12/14/20 18:58 Urine clean catch - Clean Catch Midstream Urine Culture - Preliminary Culture too young to evaluate. 12/11/20 10:53 Blood - Venous Blood Culture - Preliminary No growth after 48 hours. 12/11/20 10:51 Blood - Venous Blood Culture - Preliminary No growth after 48 hours. Assessment and Plan (1) Pneumonia due to COVID-19 virus: Status: Acute Assessment and Plan: (2) Acute respiratory failure with hypoxia: Status: Acute (3) ILD (interstitial lung disease): Problem details: mild peripheral disease Status: Acute Assessment and Plan: 75 year old women admitted with Covid pneumonia. Mostly GI symptoms. Acute hypoxic respiratory failure due to covid 19 infection Positive PCR on 12/08/20, 92% on room air, will check oxygenation with ambulation Continue Decadron day 04/05 Continue doxycycline b.i.d. for atypical infection change to by mouth, add scheduled cough medication Evaluated by ID, no role for remdesivir Encourage incentive spirometry, out of bed to chair, ambulation, possible discharge in next 24 hours, patient lives at home with son Transaminitis. mild, stable, Likely 2/2 Covid-19 Hypertension. BP elevated this a.m. likely causing dizziness with blood pressure 172/86, BP improved to 122/65 after use of home medication Coreg and diltiazem, vasotec on hold. Type 2 Diabetes. Noted to have hypoglycemia couple days ago now blood sugar improved, glipizide on hold, continue Lantus insulin 35 units at night Sliding scale, ADA diet follow blood sugar closely Hyperlipidemia. Statin. GERD. PPI. DVT PPX Lovenox
[2020-12-15] MEDS: Benzonatate 100 MG CAPSULE PO ×2 (15:23→21:46)
--- NOTE | 2020-12-15 15:58 | MHC.CM.PN ---
Pt continues to wean off of O2: today 90% on room air: MD to trial pt with ambulation for assessment of ? desatting with activity that would warrant home O2 needs. Will discuss home O2 eval with MD: pt resides alone but does have a son who is her compensated DEVIL TENDER. Pt and son desire a return to home - will await O2 eval for completion of d/c plans.
[2020-12-15] MEDS: Albuterol Sulfate 90 MCG 8 GM INHALER 4 PUFF INHALE (16:12)
[2020-12-15 16:35] LABS: Glucose, Whole Blood 188 mg/dL (60-115)
[2020-12-15 21:26] LABS: Glucose, Whole Blood 207 mg/dL (60-115)
[2020-12-15] MEDS: Insulin Glargine,Hum.rec.anlog 100 UNIT/ML 10 ML VIAL 35 UNIT SUBCUT (21:47)
[2020-12-15] MEDS: Montelukast Sodium 10 MG TABLET PO (21:48)
[2020-12-15] MEDS: Gabapentin 100 MG CAPSULE PO (21:56)
[2020-12-16] VITALS (13 sets, daily range): BP systolic 125–173; BP diastolic 63–80; PULSE 80–104; RESP 18–33; TEMP 36.1–36.8; O2SAT 91–100
[2020-12-16] MEDS: 0.9 % Sodium Chloride Flush 3 ML SYRINGE IVFLUSH (00:18)
[2020-12-16] MEDS: Acetaminophen 325 MG TABLET 650 MG PO ×3 (03:21→16:20)
[2020-12-16] MEDS: Fluticasone/Vilanterol 100/25 BLST.W.DEV 1 PUFF INHALE (07:52)
[2020-12-16 08:01] LABS: Glucose, Whole Blood 67 mg/dL (60-115)
[2020-12-16] MEDS: Omeprazole 20 MG CAPSULE.DR PO ×2 (09:31→19:31)
[2020-12-16] MEDS: dilTIAZem HCL CD 240 MG CAP.ER.DEG PO (09:32)
[2020-12-16] MEDS: Multivitamin TABLET 1 TAB PO (09:32)
[2020-12-16] MEDS: Clopidogrel Bisulfate 75 MG TABLET PO (09:32)
[2020-12-16] MEDS: dexAMETHasone 6 MG TABLET PO (09:34)
[2020-12-16] MEDS: carvediloL 3.125 MG TABLET PO ×2 (09:34→19:31)
[2020-12-16] MEDS: Benzonatate 100 MG CAPSULE PO ×3 (09:34→19:30)
[2020-12-16] MEDS: Isosorbide Mononitrate 60 MG TAB.ER.24H PO (09:35)
[2020-12-16] MEDS: Aspirin Enteric Coated 81 MG TABLET.DR PO (09:37)
[2020-12-16] MEDS: Calcium + Vitamin D 250 MG TABLET 500 MG PO (09:37)
[2020-12-16] MEDS: Enalapril Maleate 10 MG TABLET PO (09:38)
[2020-12-16] MEDS: Atorvastatin Calcium 80 MG TABLET PO (09:38)
[2020-12-16 11:12] LABS: Glucose, Whole Blood 210 mg/dL (60-115)
[2020-12-16] MEDS: Insulin Lispro 100 UNIT/ML 3 ML VIAL SUBCUT ×3 (12:04→19:29)
[2020-12-16] MEDS: Enoxaparin Sodium 40 MG/0.4 ML SYRINGE SUBCUT (12:09)
--- NOTE | 2020-12-16 12:43 | HO.PM.IMPN ---
Subjective Subjective Date of Service: 12/16/20 Interval History: Patient resting in bed complaining of generalized weakness , dizziness, cough and shortness of breath with activity oxygenation 92% on room air, no acute issues overnight. 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 Neck is supple no JVD. CVS regular rate rhythm, Respiratory bilateral expiratory rhonchi new since yesterday, no respiratory distress Gastrointestinal abdomen soft, nontender, bowel sounds audible Extremities no clubbing,no cyanosis or edema. Neuro nonfocal, speech clear. Skin no rash Objective Data Current Medications Generic Name Dose Route Start Last Admin Trade Name Freq PRN Reason Stop Dose Admin Acetaminophen 650 mg 12/11/20 14:01 12/16/20 09:43 Acetaminophen 325 Mg Tablet PO 650 mg Q6H PRN Administration Pain, Mild (Pain Scale 1-3) Acetaminophen/Butalbital/Caffeine 1 tab 12/14/20 09:44 12/14/20 10:00 Butalb/Acetamin/Caff 50/325/40 Tablet PO 1 tab RQ6H PRN Administration Headache Albuterol Sulfate 2.5 mg 12/14/20 22:06 Albuterol Sulfate (0.083%) 2.5 Mg/3 Ml Vial.Neb INHALE Q2H PRN Shortness of Breath/Wheezing Albuterol Sulfate 4 puff 12/14/20 22:44 12/15/20 16:12 Albuterol Sulfate 90 Mcg 8 Gm Inhaler INHALE 4 puff Q2H PRN Administration Shortness of Breath/Wheezing Albuterol Sulfate 2.5 mg 12/16/20 18:00 Albuterol Sulfate (0.083%) 2.5 Mg/3 Ml Vial.Neb INHALE RQ6H [facility] Aspirin 81 mg 12/12/20 09:00 12/16/20 09:37 Aspirin Enteric Coated 81 Mg Tablet.Dr PO 81 mg DAILY GAMALIEL Administration Atorvastatin Calcium 80 mg 12/11/20 14:01 12/16/20 09:38 Atorvastatin Calcium 80 Mg Tablet PO 80 mg DAILY G[facility]ALIEL Administration Benzonatate 100 mg 12/15/20 15:00 12/16/20 09:34 Benzonatate 100 Mg Capsule PO 100 mg TID GAMALIEL Administration Calcium Carbonate/Cholecalciferol 500 mg 12/12/20 09:00 12/16/20 09:37 Calcium + Vitamin D 250 Mg Tablet PO 500 mg DAILY G[facility]ALIEL Administration Carvedilol 3.125 mg 12/11/20 21:00 12/16/20 09:34 Carvedilol 3.125 Mg Tablet PO 3.125 mg BID GAMALIEL Administration Protocol Clopidogrel Bisulfate 75 mg 12/11/20 14:01 12/16/20 09:32 Clopidogrel Bisulfate 75 Mg Tablet PO 75 mg DAILY GAMALIEL Administration Dexamethasone 6 mg 12/16/20 09:00 12/16/20 09:34 Dexamethasone 6 Mg Tablet PO 6 mg DAILY G[facility]ALIEL Administration Diltiazem HCl 240 mg 12/12/20 09:00 12/16/20 09:32 Diltiazem Hcl Cd 240 Mg Cap.Er.Deg PO 240 mg DAILY G[facility]ALIEL Administration Protocol Doxycycline Hyclate 100 mg 12/15/20 15:00 12/16/20 03:21 Doxycycline Hyclate 100 Mg Tablet PO 100 mg Q12H [facility] Administration Enalapril Maleate 10 mg 12/16/20 09:00 12/16/20 09:38 Enalapril Maleate 10 Mg Tablet PO 10 mg DAILY GAMALIEL Administration Protocol Enoxaparin Sodium 40 mg 12/14/20 13:00 12/16/20 12:09 Enoxaparin Sodium 40 Mg/0.4 Ml Syringe SUBCUT 40 mg Q24H GAMALIEL Administration Fluticasone/Vilanterol 1 puff 12/15/20 13:15 12/16/20 07:52 Fluticasone/Vilanterol 100/25 Blst.W.Dev INHALE 1 puff RDAILY GAMALIEL Administration Gabapentin 100 mg 12/11/20 21:00 12/15/20 21:56 Gabapentin 100 Mg Capsule PO 100 mg BEDTIME GAMALIEL Administration Insulin Glargine 35 unit 12/12/20 21:00 12/15/20 21:47 Insulin Glargine,Hum.Rec.Anlog 100 Unit/Ml 10 Ml Vial SUBCUT 35 unit BEDTIME [facility] Administration Insulin Human Lispro 0 unit 12/13/20 16:30 12/16/20 12:04 Insulin Lispro 100 Unit/Ml 3 Ml Vial SUBCUT 4 unit QIDACHS [facility] Administration Protocol Isosorbide Mononitrate 60 mg 12/11/20 14:01 12/16/20 09:35 Isosorbide Mononitrate 60 Mg Tab.Er.24h PO 60 mg DAILY [facility] Administration Protocol Montelukast Sodium 10 mg 12/11/20 21:00 12/15/20 21:48 Montelukast Sodium 10 Mg Tablet PO 10 mg BEDTIME [facility] Administration Multivitamins/Vitamin C 1 tab 12/12/20 09:00 12/16/20 09:32 Multivitamin Tablet PO 1 tab DAILY [facility] Administration Non-Formulary Medication 500 mcg 12/12/20 09:00 Roflumilast [Daliresp] PO DAILY [facility] Omeprazole 20 mg 12/11/20 21:00 12/16/20 09:31 Omeprazole 20 Mg Capsule.Dr PO 20 mg BID [facility] Administration Ondansetron HCl 4 mg 12/11/20 14:01 12/12/20 12:52 Ondansetron Hcl 4 Mg/2 Ml Vial IVPUSH 4 mg Q8H PRN Administration Nausea and Vomiting Pharmacy Consult 1 each 12/11/20 10:47 Consult Rx Perform Med Rec MISCELLANE ONCE PRN Consult order Sodium Chloride 3 ml 12/11/20 16:00 12/16/20 09:45 0.9 % Sodium Chloride Flush 3 Ml Syringe IVFLUSH Not Given QSHIFT [facility] Tiotropium [place] 1 puff 12/15/20 13:30 12/16/20 07:52 Tiotropium [place] 18 Mcg Cap.W.Dev INHALE 1 puff RDAILY [facility] Administration Labs CBC & Chem 7: 12/14/20 06:13 12/15/20 07:32 Microbiology Microbiology Results: Microbiology 12/14/20 18:58 Urine clean catch - Clean Catch Midstream Urine Culture - Final 12/11/20 10:53 Blood - Venous Blood Culture - Preliminary No growth after 48 hours. 12/11/20 10:51 Blood - Venous Blood Culture - Preliminary No growth after 48 hours. Assessment and Plan (1) Pneumonia due to COVID-19 virus: Status: Acute Assessment and Plan: (2) Acute respiratory failure with hypoxia: Status: Acute (3) ILD (interstitial lung disease): Problem details: mild peripheral disease Status: Acute Assessment and Plan: 75 year old women admitted with Covid pneumonia. Mostly GI symptoms. Acute hypoxic respiratory failure due to covid 19 infection Positive PCR on 12/08/20, 95% on room air, but oxygenation drops with ambulation, noted to be tachypneic but no significant distress Continue Decadron day 05/06 Continue doxycycline b.i.d. for atypical infection and scheduled cough medication Evaluated by ID, no role for remdesivir Continue Breo, Tessalon Perles, Spiriva, Singulair will add Bentyl in inhaler q.i.d. Encourage incentive spirometry, out of bed to chair, ambulation, will follow clinical course closely. Transaminitis. mild, stable, chronically elevated, no nausea, no vomiting no abdominal pain, follow LFT Hypertension. BP stable on home medication Coreg ,diltiazem,and vasotec. Type 2 Diabetes. Noted to have hypoglycemia couple days ago now blood sugar improved, glipizide on hold, continue Lantus insulin 35 units at night Sliding scale, ADA diet follow blood sugar closely Hyperlipidemia. Statin. GERD. PPI. DVT PPX Lovenox
--- NOTE | 2020-12-16 14:58 | MHC.CM.PN ---
Pt continues to improve: BP elevated today: Meds to be adjusted and home O2 eval to be ordered in preparation of d/c to home likely tomorrow. Referral to [facility] for skilled RN visits - message left with [facility] requesting auth for services. Pt resides with son who can assist her with transportation Will f/u on [facility] and home O2 for ? d/c 12/17
[2020-12-16 16:33] LABS: Glucose, Whole Blood 208 mg/dL (60-115)
[2020-12-16] MEDS: Gabapentin 100 MG CAPSULE PO (19:30)
[2020-12-16] MEDS: Insulin Glargine,Hum.rec.anlog 100 UNIT/ML 10 ML VIAL 35 UNIT SUBCUT (19:30)
[2020-12-16] MEDS: Montelukast Sodium 10 MG TABLET PO (19:34)
[2020-12-16 20:03] LABS: Glucose, Whole Blood 231 mg/dL (60-115)
[2020-12-17] VITALS (14 sets, daily range): BP systolic 138–156; BP diastolic 65–79; PULSE 77–100; RESP 20–28; TEMP 36.3–36.7; O2SAT 82–98
[2020-12-17] MEDS: Acetaminophen 325 MG TABLET 650 MG PO ×2 (05:28→11:59)
[2020-12-17 07:45] LABS: Glucose, Whole Blood 54 mg/dL (60-115)
[2020-12-17] MEDS: Fluticasone/Vilanterol 100/25 BLST.W.DEV 1 PUFF INHALE (07:51)
[2020-12-17 08:08] LABS: Glucose, Whole Blood 113 mg/dL (60-115)
[2020-12-17] MEDS: Atorvastatin Calcium 80 MG TABLET PO (08:32)
[2020-12-17] MEDS: dexAMETHasone 6 MG TABLET PO (08:32)
[2020-12-17] MEDS: carvediloL 3.125 MG TABLET PO ×2 (08:32→20:44)
[2020-12-17] MEDS: Isosorbide Mononitrate 60 MG TAB.ER.24H PO (08:32)
[2020-12-17] MEDS: dilTIAZem HCL CD 240 MG CAP.ER.DEG PO (08:32)
[2020-12-17] MEDS: Benzonatate 100 MG CAPSULE PO ×3 (08:33→20:44)
[2020-12-17] MEDS: Aspirin Enteric Coated 81 MG TABLET.DR PO (08:33)
[2020-12-17] MEDS: Multivitamin TABLET 1 TAB PO (08:33)
[2020-12-17] MEDS: Calcium + Vitamin D 250 MG TABLET 500 MG PO (08:33)
[2020-12-17] MEDS: Enalapril Maleate 10 MG TABLET PO (08:33)
[2020-12-17] MEDS: Omeprazole 20 MG CAPSULE.DR PO ×2 (08:33→20:44)
[2020-12-17] MEDS: Clopidogrel Bisulfate 75 MG TABLET PO (08:33)
--- NOTE | 2020-12-17 10:14 | PC.NURSE ---
Patient with decreased oxygen this am with oxygen saturation of 82% on 2L. Dr. Duarte and respiratory therapist made aware and at bedside with use of employment consultant. Patient placed on 15L NRB with oxgen saturation of 93%. Patient educated with employment consultant. No further concerns at this time.
[2020-12-17 10:24] LABS: MANUAL DIFF FLAG NO
[2020-12-17 10:29] LABS: Basophils Percent Auto 0.1 % (0-2); Eosinophils Percent Auto 0.1 % (0-4); Hematocrit 37.7 % (37-47); Hemoglobin 12.4 g/dl (12.0-16.0); Imm Gran Abs Auto 0.07 X10*3/uL (0.00-0.03); Imm Gran Pct Auto 0.7 % (0.0-0.4); Lymphocytes Absolute Auto 0.9 X10*3/uL (1.2-4.9); Mean Corpuscular HGB Conc 32.9 g/dl (31.0-35.0); Mean Corpuscular Hemoglobin 30.3 pg (27.0-33.0); Mean Corpuscular Volume 92.2 fL (80-98); Mean Platelet Volume 9.2 fL (9.4-12.3); Monocytes Absolute Auto 0.6 X10*3/uL (0.1-1.2); Monocytes Percent Auto 6.3 % (2-11); Neutrophils Absolute Auto 8.3 X10*3/uL (2.0-8.3); Neutrophils Percent Auto 83.8 % (45-73); Platelet Count 332 X10*3/uL (160-400); Red Blood Count 4.09 X10*6/uL (4.20-5.50); Red Cell Distribution Width 13.9 % (11.0-16.0)
[2020-12-17 11:04] LABS: Alanine Aminotransferase 126 U/L (0-31); Albumin Level 3.4 g/dL (3.5-5.0); Alkaline Phosphatase 79 U/L (39-117); Anion Gap 15 (12-20); Aspartate Amino Transferase 138 U/L (5-31); Bilirubin Direct 0.2 mg/dL (0.0-0.5); Bilirubin Total 0.4 mg/dL (0.0-1.0); Blood Urea Nitrogen 20 mg/dL (9-16); C Reactive Protein 4.14 mg/dL (< or = 0.50); Calcium 8.8 mg/dL (8.4-10.2); Carbon Dioxide 22 mmol/L (22-29); Chloride 107 mmol/L (96-108); Creatinine Clr Calc Pharmacy 71.5; Estimated Glomerular Filt Rate > 60; Glucose Random 181 mg/dL (60-115); Potassium 3.2 mmol/l (3.3-5.1); Sodium 141 mmol/L (135-145); Total Protein 6.3 g/dL (6.5-8.0)
[2020-12-17 11:31] LABS: Glucose, Whole Blood 166 mg/dL (60-115)
[2020-12-17] MEDS: Albuterol Sulfate (0.083%) 2.5 MG/3 ML VIAL.NEB INHALE ×2 (11:34→21:18)
[2020-12-17 11:39] LABS: D Dimer 461 NG/ML
[2020-12-17] MEDS: Insulin Lispro 100 UNIT/ML 3 ML VIAL SUBCUT ×3 (11:58→20:46)
[2020-12-17 12:14] LABS: Procalcitonin 0.06 ng/mL
--- NOTE | 2020-12-17 13:32 | HO.PM.IMPN ---
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 Neck is supple no JVD. CVS regular rate rhythm, Respiratory lungs clear to auscultation today, no respiratory distress Gastrointestinal abdomen soft, nontender, bowel sounds audible Extremities edema. Neuro nonfocal, speech clear. Skin no rash Objective Data Current Medications Generic Name Dose Route Start Last Admin Trade Name Freq PRN Reason Stop Dose Admin Acetaminophen 650 mg 12/11/20 14:01 12/17/20 11:59 Acetaminophen 325 Mg Tablet PO 650 mg Q6H PRN Administration Pain, Mild (Pain Scale 1-3) Acetaminophen/Butalbital/Caffeine 1 tab 12/14/20 09:44 12/14/20 10:00 Butalb/Acetamin/Caff 50/325/40 Tablet PO 1 tab RQ6H PRN Administration Headache Albuterol Sulfate 2.5 mg 12/14/20 22:06 Albuterol Sulfate (0.083%) 2.5 Mg/3 Ml Vial.Neb INHALE Q2H PRN Shortness of Breath/Wheezing Albuterol Sulfate 4 puff 12/14/20 22:44 12/15/20 16:12 Albuterol Sulfate 90 Mcg 8 Gm Inhaler INHALE 4 puff Q2H PRN Administration Shortness of Breath/Wheezing Albuterol Sulfate 2.5 mg 12/16/20 18:00 12/17/20 11:34 Albuterol Sulfate (0.083%) 2.5 Mg/3 Ml Vial.Neb INHALE 2.5 mg RQ6H GAMALIEL Administration Aspirin 81 mg 12/12/20 09:00 12/17/20 08:33 Aspirin Enteric Coated 81 Mg Tablet.Dr PO 81 mg DAILY [facility] Administration Benzonatate 100 mg 12/15/20 15:00 12/17/20 08:33 Benzonatate 100 Mg Capsule PO 100 mg TID GAMALIEL Administration Calcium Carbonate/Cholecalciferol 500 mg 12/12/20 09:00 12/17/20 08:33 Calcium + Vitamin D 250 Mg Tablet PO 500 mg DAILY G[facility]IEL Administration Carvedilol 3.125 mg 12/11/20 21:00 12/17/20 08:32 Carvedilol 3.125 Mg Tablet PO 3.125 mg BID G[facility]ALIEL Administration Protocol Clopidogrel Bisulfate 75 mg 12/11/20 14:01 12/17/20 08:33 Clopidogrel Bisulfate 75 Mg Tablet PO 75 mg DAILY G[facility]IEL Administration Dexamethasone 6 mg 12/16/20 09:00 12/17/20 08:32 Dexamethasone 6 Mg Tablet PO 6 mg DAILY G[facility]IEL Administration Diltiazem HCl 240 mg 12/12/20 09:00 12/17/20 08:32 Diltiazem Hcl Cd 240 Mg Cap.Er.Deg PO 240 mg DAILY [facility]IEL Administration Protocol Doxycycline Hyclate 100 mg 12/15/20 15:00 12/17/20 02:31 Doxycycline Hyclate 100 Mg Tablet PO 100 mg Q12H G[facility]EL Administration Enalapril Maleate 10 mg 12/16/20 09:00 12/17/20 08:33 Enalapril Maleate 10 Mg Tablet PO 10 mg DAILY [facility] Administration Protocol Enoxaparin Sodium 40 mg 12/14/20 13:00 12/17/20 13:19 Enoxaparin Sodium 40 Mg/0.4 Ml Syringe SUBCUT Not Given Q24H [facility] Fluticasone/Vilanterol 1 puff 12/15/20 13:15 12/17/20 07:51 Fluticasone/Vilanterol 100/25 Blst.W.Dev INHALE 1 puff RDAILY [facility] Administration Gabapentin 100 mg 12/11/20 21:00 12/16/20 19:30 Gabapentin 100 Mg Capsule PO 100 mg BEDTIME [facility]IEL Administration Insulin Glargine 35 unit 12/12/20 21:00 12/16/20 19:30 Insulin Glargine,Hum.Rec.Anlog 100 Unit/Ml 10 Ml Vial SUBCUT 35 unit BEDTIME [facility] Administration Insulin Human Lispro 0 unit 12/13/20 16:30 12/17/20 11:58 Insulin Lispro 100 Unit/Ml 3 Ml Vial SUBCUT 2 unit QIDACHS [facility] Administration Protocol Isosorbide Mononitrate 60 mg 12/11/20 14:01 12/17/20 08:32 Isosorbide Mononitrate 60 Mg Tab.Er.24h PO 60 mg DAILY [facility] Administration Protocol Montelukast Sodium 10 mg 12/11/20 21:00 12/16/20 19:34 Montelukast Sodium 10 Mg Tablet PO 10 mg BEDTIME [facility] Administration Multivitamins/Vitamin C 1 tab 12/12/20 09:00 12/17/20 08:33 Multivitamin Tablet PO 1 tab DAILY [facility] Administration Non-Formulary Medication 500 mcg 12/12/20 09:00 Roflumilast [Daliresp] PO DAILY [facility] Omeprazole 20 mg 12/11/20 21:00 12/17/20 08:33 Omeprazole 20 Mg Capsule.Dr PO 20 mg BID [facility] Administration Ondansetron HCl 4 mg 12/11/20 14:01 12/12/20 12:52 Ondansetron Hcl 4 Mg/2 Ml Vial IVPUSH 4 mg Q8H PRN Administration Nausea and Vomiting Pharmacy Consult 1 each 12/11/20 10:47 Consult Rx Perform Med Rec MISCELLANE ONCE PRN Consult order Sodium Chloride 3 ml 12/11/20 16:00 12/17/20 08:27 0.9 % Sodium Chloride Flush 3 Ml Syringe IVFLUSH Not Given QSHIFT [facility] Tiotropium [place] 1 puff 12/15/20 13:30 12/17/20 07:51 Tiotropium [place] 18 Mcg Cap.W.Dev INHALE 1 puff RDAILY [facility] Administration Labs CBC & Chem 7: 12/17/20 10:08 12/17/20 10:08 Microbiology Microbiology Results: Microbiology 12/11/20 10:53 Blood - Venous Blood Culture - Final No growth after 5 days. 12/11/20 10:51 Blood - Venous Blood Culture - Final No growth after 5 days. 12/14/20 18:58 Urine clean catch - Clean Catch Midstream Urine Culture - Final Assessment and Plan (1) Pneumonia due to COVID-19 virus: Status: Acute Assessment and Plan: (2) Acute respiratory failure with hypoxia: Status: Acute (3) ILD (interstitial lung disease): Problem details: mild peripheral disease Status: Acute Assessment and Plan: 75 year old women admitted with Covid pneumonia. Mostly GI symptoms. Acute hypoxic respiratory failure due to covid 19 infection Patient and not feeling well noted to be hypoxic today with multiple complaints Positive PCR on 12/08/20, O2 sat high 80s without oxygen at rest currently on 10 L of Oxymizer finger oximetry 93 95% does not appear to be in respiratory distress Continue Decadron day 06/05, on doxycycline b.i.d. Continue Breo, Spiriva, Singulair,and cough medication Repeated labs showed stable CBC, renal function, procalcitonin level 0.06, Low potassium will replace and follow labs Continue supportive care case discussed with ID no role of remdesivir or convalescent plasma since stable for consider tone and does not need a broad-spectrum antibiotic Transient episode of epistaxis Likely due to dual platelet agent aspirin and Plavix also being on Lovenox will discontinue Plavix and will discuss with Cardiology and hold Lovenox today Transaminitis. mild, stable, chronically elevated, no nausea, no vomiting no abdominal pain, follow LFT and discontinue Lipitor Hypertension. BP stable on home medication few high readings continue Coreg ,diltiazem,and vasotec. Type 2 Diabetes. Noted to have hypoglycemia this a.m. 55, glipizide on hold, will decrease dose of Lantus at night,from 35 units to 25 units Sliding scale, ADA diet follow blood sugar closely Hyperlipidemia. Statin. GERD. PPI. DVT PPX Lovenox
[2020-12-17] MEDS: Potassium Chloride ER 20 MEQ TAB.ER.PRT PO (14:12)
--- NOTE | 2020-12-17 14:37 | PC.NURSE ---
Patient had mild nose bleed this afternoon. Dr. Duarte made aware and at bedside, orders given to hold afternoon lovenox. Patient transitioned to oxymizer 10L stats 93% and encouraged/educated for use of incentive spirometry. No further concerns at this time.
[2020-12-17] MEDS: ALPRAZolam 0.25 MG TABLET 0.125 MG PO (14:57)
[2020-12-17] MEDS: 0.9 % Sodium Chloride Flush 3 ML SYRINGE IVFLUSH ×2 (14:58→23:32)
--- NOTE | 2020-12-17 15:37 | MHC.CM.PN ---
Pt continues on high flow O2 on the ISO unit with COVID: more hypoxic today: no plans for d/c until pt is on a reduced O2 amount. d/c plan is for a return to home with [facility] and family support. Will follow for ? SNF needs
[2020-12-17 16:18] LABS: Glucose, Whole Blood 293 mg/dL (60-115)
[2020-12-17 20:35] LABS: Glucose, Whole Blood 331 mg/dL (60-115)
[2020-12-17] MEDS: Gabapentin 100 MG CAPSULE PO (20:44)
[2020-12-17] MEDS: Montelukast Sodium 10 MG TABLET PO (20:44)
[2020-12-17] MEDS: Insulin Glargine,Hum.rec.anlog 100 UNIT/ML 10 ML VIAL 25 UNIT SUBCUT (20:45)
[2020-12-18] VITALS (10 sets, daily range): BP systolic 125–165; BP diastolic 63–89; PULSE 74–99; RESP 12–23; TEMP 36.3–36.5; O2SAT 90–94
--- NOTE | 2020-12-18 02:38 | PC.NURSE ---
Addendum entered by Brooke Henderson RN 12/18/20 05:13: Patient removed non rebreather, Oxygen level as low as 80%. rn coronary care unit and respiratory called to bedside with this RN . Attempted to explain and educate patient the need for oxygen therapy. Patient only agreeable to oxymizer at this time. Oxymizer 10 L applied O2 sats 90-92%. Original Note: Patient's oxygen level as low as 83% on oxymizer 10 L. Patient assessed and appeared to have increased work of breathing. Patient placed on 100% non rebreather mask. Oxygen saturation now 98%, Respiratory notified, will continue to monitor. Patient resting comfortably at present.
[2020-12-18] MEDS: Albuterol Sulfate (0.083%) 2.5 MG/3 ML VIAL.NEB INHALE (03:33)
[2020-12-18] MEDS: Acetaminophen 325 MG TABLET 650 MG PO (06:19)
[2020-12-18] MEDS: ALPRAZolam 0.25 MG TABLET 0.125 MG PO ×3 (07:16→21:54)
[2020-12-18] MEDS: 0.9 % Sodium Chloride Flush 3 ML SYRINGE IVFLUSH ×3 (07:19→21:36)
[2020-12-18] MEDS: dexAMETHasone 6 MG TABLET PO (07:29)
[2020-12-18] MEDS: dilTIAZem HCL CD 240 MG CAP.ER.DEG PO (07:29)
[2020-12-18] MEDS: Omeprazole 20 MG CAPSULE.DR PO ×2 (07:29→21:36)
[2020-12-18] MEDS: Benzonatate 100 MG CAPSULE PO ×3 (07:29→21:36)
[2020-12-18] MEDS: Calcium + Vitamin D 250 MG TABLET 500 MG PO (07:29)
[2020-12-18] MEDS: Multivitamin TABLET 1 TAB PO (07:29)
[2020-12-18] MEDS: carvediloL 3.125 MG TABLET PO ×2 (07:29→21:36)
[2020-12-18] MEDS: Isosorbide Mononitrate 60 MG TAB.ER.24H PO (07:30)
[2020-12-18] MEDS: Enalapril Maleate 10 MG TABLET PO (07:30)
[2020-12-18 07:44] LABS: Glucose, Whole Blood 128 mg/dL (60-115)
[2020-12-18] MEDS: Fluticasone/Vilanterol 100/25 BLST.W.DEV 1 PUFF INHALE (08:24)
--- NOTE | 2020-12-18 10:16 | P.PNIM_ITS ---
Subjective Subjective Date of Service: 12/18/20 Interval History: Patient is sitting on recliner appears restless changing position frequently, as per RN has been taking off her oxygen, has been coughing and noted to have small amount of blood mixed in clear phlegm, no further episodes of epistaxis, no chest pain. 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 Neck is supple no JVD. CVS regular rate rhythm, Respiratory lungs coarse breath sound, no wheeze, no rhonchi, no respiratory distress Gastrointestinal abdomen soft, nontender, bowel sounds audible Extremities no edema. Neuro nonfocal, speech clear. Skin no rash Objective Data Current Medications Generic Name Dose Route Start Last Admin Trade Name Freq PRN Reason Stop Dose Admin Acetaminophen 650 mg 12/11/20 14:01 12/18/20 06:19 Acetaminophen 325 Mg Tablet PO 650 mg Q6H PRN Administration Pain, Mild (Pain Scale 1-3) Acetaminophen/Butalbital/Caffeine 1 tab 12/14/20 09:44 12/14/20 10:00 Butalb/Acetamin/Caff 50/325/40 Tablet PO 1 tab RQ6H PRN Administration Headache Albuterol Sulfate 2.5 mg 12/14/20 22:06 Albuterol Sulfate (0.083%) 2.5 Mg/3 Ml Vial.Neb INHALE Q2H PRN Shortness of Breath/Wheezing Albuterol Sulfate 4 puff 12/14/20 22:44 12/15/20 16:12 Albuterol Sulfate 90 Mcg 8 Gm Inhaler INHALE 4 puff Q2H PRN Administration Shortness of Breath/Wheezing Albuterol Sulfate 2.5 mg 12/16/20 18:00 12/18/20 03:33 Albuterol Sulfate (0.083%) 2.5 Mg/3 Ml Vial.Neb INHALE 2.5 mg RQ6H GAMALIEL Administration Alprazolam 0.125 mg 12/17/20 14:48 12/18/20 07:16 Alprazolam 0.25 Mg Tablet PO 0.125 mg BID PRN Administration anxiety Benzonatate 100 mg 12/15/20 15:00 12/18/20 07:29 Benzonatate 100 Mg Capsule PO 100 mg TID GAMALIEL Administration Calcium Carbonate/Cholecalciferol 500 mg 12/12/20 09:00 12/18/20 07:29 Calcium + Vitamin D 250 Mg Tablet PO 500 mg DAILY GAMALIEL Administration Carvedilol 3.125 mg 12/11/20 21:00 12/18/20 07:29 Carvedilol 3.125 Mg Tablet PO 3.125 mg BID GAMALIEL Administration Protocol Dexamethasone 6 mg 12/16/20 09:00 12/18/20 07:29 Dexamethasone 6 Mg Tablet PO 6 mg DAILY GAMALIEL Administration Diltiazem HCl 240 mg 12/12/20 09:00 12/18/20 07:29 Diltiazem Hcl Cd 240 Mg Cap.Er.Deg PO 240 mg DAILY GAMALIEL Administration Protocol Doxycycline Hyclate 100 mg 12/15/20 15:00 12/18/20 03:29 Doxycycline Hyclate 100 Mg Tablet PO 100 mg Q12H GAMALIEL Administration Enalapril Maleate 10 mg 12/16/20 09:00 12/18/20 07:30 Enalapril Maleate 10 Mg Tablet PO 10 mg DAILY GAMALIEL Administration Protocol Enoxaparin Sodium 40 mg 12/14/20 13:00 12/17/20 13:19 Enoxaparin Sodium 40 Mg/0.4 Ml Syringe SUBCUT Not Given Q24H GAMALIEL Fluticasone/Vilanterol 1 puff 12/15/20 13:15 12/18/20 08:24 Fluticasone/Vilanterol 100/25 Blst.W.Dev INHALE 1 puff RDAILY GAMALIEL Administration Gabapentin 100 mg 12/11/20 21:00 12/17/20 20:44 Gabapentin 100 Mg Capsule PO 100 mg BEDTIME GAMALIEL Administration Insulin Glargine 25 unit 12/17/20 21:00 12/17/20 20:45 Insulin Glargine,Hum.Rec.Anlog 100 Unit/Ml 10 Ml Vial SUBCUT 25 unit BEDTIME GAMALIEL Administration Insulin Human Lispro 0 unit 12/13/20 16:30 12/18/20 07:48 Insulin Lispro 100 Unit/Ml 3 Ml Vial SUBCUT Not Given QIDACHS [facility] Protocol Isosorbide Mononitrate 60 mg 12/11/20 14:01 12/18/20 07:30 Isosorbide Mononitrate 60 Mg Tab.Er.24h PO 60 mg DAILY [facility] Administration Protocol Montelukast Sodium 10 mg 12/11/20 21:00 12/17/20 20:44 Montelukast Sodium 10 Mg Tablet PO 10 mg BEDTIME [facility] Administration Multivitamins/Vitamin C 1 tab 12/12/20 09:00 12/18/20 07:29 Multivitamin Tablet PO 1 tab DAILY [facility] Administration Non-Formulary Medication 500 mcg 12/12/20 09:00 Roflumilast [Daliresp] PO DAILY [facility] Omeprazole 20 mg 12/11/20 21:00 12/18/20 07:29 Omeprazole 20 Mg Capsule.Dr PO 20 mg BID [facility] Administration Ondansetron HCl 4 mg 12/11/20 14:01 12/12/20 12:52 Ondansetron Hcl 4 Mg/2 Ml Vial IVPUSH 4 mg Q8H PRN Administration Nausea and Vomiting Pharmacy Consult 1 each 12/11/20 10:47 Consult Rx Perform Med Rec MISCELLANE ONCE PRN Consult order Sodium Chloride 3 ml 12/11/20 16:00 12/18/20 07:19 0.9 % Sodium Chloride Flush 3 Ml Syringe IVFLUSH 3 ml QSHIFT [facility] Administration Tiotropium [place] 1 puff 12/15/20 13:30 12/18/20 08:28 Tiotropium [place] 18 Mcg Cap.W.Dev INHALE 1 puff RDAILY [facility] Administration Labs CBC & Chem 7: 12/17/20 10:08 12/17/20 10:08 Microbiology Microbiology Results: Microbiology 12/11/20 10:53 Blood - Venous Blood Culture - Final No growth after 5 days. 12/11/20 10:51 Blood - Venous Blood Culture - Final No growth after 5 days. 12/14/20 18:58 Urine clean catch - Clean Catch Midstream Urine Culture - Final Assessment and Plan (1) Acute respiratory failure with hypoxia: Status: Acute (2) Pneumonia due to COVID-19 virus: Status: Acute (3) Valdovinos's esophagus: Problem details: had an EGD in 2018 in 2019, apparently she is also followed at [facility]. Status: Acute (4) GERD (gastroesophageal reflux disease): Status: Acute (5) Transaminitis: Status: Acute (6) Epistaxis: Status: Acute Assessment and Plan: 75 year old women admitted with Covid pneumonia. Mostly GI symptoms. Acute hypoxic respiratory failure due to covid 19 infection Patient not feeling well /appears uncomfortable currently on 12 L of Oxymizer finger oximetry around 90 has generalized pain Positive PCR on 12/08/20, case discussed with ID no role of remdesivir a convalescent plasma Patient noted to have some hemoptysis likely due to use of aspirin Plavix and lovenox , held yesterday Continue Decadron day 07/06, on doxycycline b.i.d. Continue Breo, Spiriva, Singulair,and cough medication with encourage change in position Repeated labs showed stable CBC, renal function, procalcitonin level 0.06, Low potassium replaced follow labs Continue supportive care , added Xanax for anxiety, encourage incentive spirometry, spoke with son Aaron Stallworth [phone] and updated about patient's condition. Maintain oxygen above 90. Transient episode of epistaxis/hemoptysis No recurrent episodes, Likely due to dual platelet agent aspirin and Plavix also being on Lovenox , hematocrit stable follow clinical course Transaminitis. mild, stable, chronically elevated, but worse now likely due to COVID, no nausea, no vomiting no abdominal pain, follow LFT and discontinued Lipitor Hypertension. BP stable on home medication few high readings continue Coreg ,diltiazem,and vasotec. Type 2 Diabetes. Had few episodes of hypoglycemia therefore dose of Lantus reduced fasting blood sugar 128 this morning, glipizide on hold, continue low-dose Lantus 25 at night, continue Sliding scale, ADA diet follow blood sugar closely Hyperlipidemia. Statin held due to elevated LFT. GERD. PPI. DVT PPX Lovenox
[2020-12-18 11:25] LABS: Glucose, Whole Blood 266 mg/dL (60-115)
[2020-12-18] MEDS: Butalb/Acetamin/Caff 50/325/40 TABLET 1 TAB PO ×2 (11:29→21:54)
[2020-12-18] MEDS: Insulin Lispro 100 UNIT/ML 3 ML VIAL SUBCUT ×3 (11:29→21:35)
[2020-12-18] MEDS: Morphine Sulfate 2 MG/ML CARTRIDGE IVPUSH (13:18)
--- NOTE | 2020-12-18 15:38 | PC.NURSE ---
Earlier this afternoon patient with intermittent nose bleeds, Dr fleming made aware and notified. Dr. Fleming and guide foreign tour at bedside. Patient educated and use of moisturizer per bilateral nostrils in use. Patient transitioned to room air with oxygen saturations in the mid 90s. No further concerns at this time.
[2020-12-18 16:27] LABS: Glucose, Whole Blood 297 mg/dL (60-115)
[2020-12-18 21:12] LABS: Glucose, Whole Blood 329 mg/dL (60-115)
[2020-12-18] MEDS: Insulin Glargine,Hum.rec.anlog 100 UNIT/ML 10 ML VIAL 25 UNIT SUBCUT (21:35)
[2020-12-18] MEDS: Montelukast Sodium 10 MG TABLET PO (21:36)
[2020-12-18] MEDS: Gabapentin 100 MG CAPSULE PO (21:36)
[2020-12-19] VITALS (14 sets, daily range): BP systolic 103–173; BP diastolic 59–115; PULSE 76–120; RESP 19–34; TEMP 36–37.1; O2SAT 87–98
--- NOTE | 2020-12-19 00:20 | PC.NURSE ---
Addendum entered by Amy Sneed RN 12/19/20 04:31: at 0415 telesitter room called to state patient was playing with something in her nose. By the time this RN entered the room, patient had already pulled rhino rocket from her nose. No bleeding noted at this time. Will monitor for bleeding. Original Note: Patient's oxygen sat in the 90s on RA at start of shift. Around 2100 patient started to become anxious and restless. Oxygen sat down into the 70s. Patient refusing oxygen mask at this time. Oxymizer applied at 10 liters with good effect. Oxygen sat up into the low 90s. Patient also requesting to have rhino rocket removed from rt nare. Dried blood noted under nose and on gauze. Patient refusing to allow cleaning under nares at this time. Patient educated about need to leave rhino rocket in place at this time. Patient medicated as ordered. Patient currently resting in recliner. Occassionally removing oxymizer, needing frequent reeducation and redirection. Chair alarm and telesitter in place.
[2020-12-19] MEDS: 0.9 % Sodium Chloride Flush 3 ML SYRINGE IVFLUSH ×2 (07:01→14:48)
[2020-12-19] MEDS: Morphine Sulfate 2 MG/ML CARTRIDGE IVPUSH (07:01)
[2020-12-19 07:16] LABS: Hematocrit 37.8 % (37-47)
[2020-12-19 07:37] LABS: Anion Gap 19 (12-20); Blood Urea Nitrogen 25 mg/dL (9-16); Calcium 9.1 mg/dL (8.4-10.2); Carbon Dioxide 22 mmol/L (22-29); Chloride 106 mmol/L (96-108); Creatinine Clr Calc Pharmacy 65.2; Estimated Glomerular Filt Rate > 60; Glucose Random 173 mg/dL (60-115); Potassium 3.5 mmol/l (3.3-5.1); Sodium 143 mmol/L (135-145)
[2020-12-19] MEDS: Fluticasone/Vilanterol 100/25 BLST.W.DEV 1 PUFF INHALE (07:50)
[2020-12-19 07:54] LABS: Glucose, Whole Blood 185 mg/dL (60-115)
[2020-12-19] MEDS: Albuterol Sulfate (0.083%) 2.5 MG/3 ML VIAL.NEB INHALE ×2 (07:59→12:53)
[2020-12-19] MEDS: dilTIAZem HCL CD 240 MG CAP.ER.DEG PO (11:18)
[2020-12-19] MEDS: oxyCODONE HCl Immed Release 5 MG TABLET 2.5 MG PO (11:19)
[2020-12-19] MEDS: dexAMETHasone 6 MG TABLET PO (11:19)
[2020-12-19] MEDS: Benzonatate 100 MG CAPSULE PO ×3 (11:20→21:29)
[2020-12-19] MEDS: Enalapril Maleate 10 MG TABLET PO (11:20)
[2020-12-19] MEDS: Multivitamin TABLET 1 TAB PO (11:20)
[2020-12-19] MEDS: Calcium + Vitamin D 250 MG TABLET 500 MG PO (11:20)
[2020-12-19] MEDS: carvediloL 3.125 MG TABLET PO ×2 (11:21→21:29)
[2020-12-19] MEDS: Isosorbide Mononitrate 60 MG TAB.ER.24H PO (11:21)
[2020-12-19 11:32] LABS: Glucose, Whole Blood 132 mg/dL (60-115)
[2020-12-19] MEDS: Albuterol Sulfate 90 MCG 8 GM INHALER 4 PUFF INHALE ×2 (12:04→17:01)
--- NOTE | 2020-12-19 13:06 | PC.NURSE ---
Patient 02 85-90% on 12L oximizer. RR 20, mild SOB with activity. Given IV morphine at 0800 for SOB with good effect for 2 hours. Encouraged proning but unable to tolerate/refusing. Patient OOB to chair, educated on incentive spirometery. Respiratory at bedside, High flow started at 1300 at 100% 02 at 92%. Sinus tach 115- 120s. Patient c/o generalized pain, 2.5mg oxycodone po given at 1100. Patient anxious and continuously removing oxygen. Educated on importance of oxygen with educational interpreter. At this time patient sitting OOB in recliner,
[2020-12-19] MEDS: ALPRAZolam 0.25 MG TABLET 0.125 MG PO (14:47)
[2020-12-19] MEDS: Butalb/Acetamin/Caff 50/325/40 TABLET 1 TAB PO (14:47)
--- NOTE | 2020-12-19 14:53 | HO.PM.IMPN ---
Subjective Subjective Date of Service: 12/20/20 Interval History: Patient noted to be very restless overnight and remained restless now, complaining of generalized discomfort oxygenation drops to low 80s patient keeps pulling her nasal cannula now placed on high-flow oxygen, nose bleed stopped. No fevers overnight. 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 Neck is supple, no JVD. CVS regular rate rhythm, Respiratory lungs coarse breath sound, no wheeze, no rhonchi, Gastrointestinal abdomen soft, nontender, bowel sounds audible Extremities no edema. Neuro nonfocal, speech clear. Skin no rash Objective Data Current Medications Generic Name Dose Route Start Last Admin Trade Name Freq PRN Reason Stop Dose Admin Acetaminophen 650 mg 12/11/20 14:01 12/18/20 06:19 Acetaminophen 325 Mg Tablet PO 650 mg Q6H PRN Administration Pain, Mild (Pain Scale 1-3) Acetaminophen/Butalbital/Caffeine 1 tab 12/14/20 09:44 12/19/20 14:47 Butalb/Acetamin/Caff 50/325/40 Tablet PO 1 tab RQ6H PRN Administration Headache Albuterol Sulfate 2.5 mg 12/14/20 22:06 Albuterol Sulfate (0.083%) 2.5 Mg/3 Ml Vial.Neb INHALE Q2H PRN Shortness of Breath/Wheezing Albuterol Sulfate 4 puff 12/14/20 22:44 12/19/20 12:04 Albuterol Sulfate 90 Mcg 8 Gm Inhaler INHALE 4 puff Q2H PRN Administration Shortness of Breath/Wheezing Albuterol Sulfate 2.5 mg 12/16/20 18:00 12/19/20 12:53 Albuterol Sulfate (0.083%) 2.5 Mg/3 Ml Vial.Neb INHALE 2.5 mg RQ6H GAMALIEL Administration Alprazolam 0.125 mg 12/18/20 13:04 12/19/20 14:47 Alprazolam 0.25 Mg Tablet PO 0.125 mg TID PRN Administration anxiety Benzonatate 100 mg 12/15/20 15:00 12/19/20 14:47 Benzonatate 100 Mg Capsule PO 100 mg TID GAMALIEL Administration Calcium Carbonate/Cholecalciferol 500 mg 12/12/20 09:00 12/19/20 11:20 Calcium + Vitamin D 250 Mg Tablet PO 500 mg DAILY GAMALIEL Administration Carvedilol 3.125 mg 12/11/20 21:00 12/19/20 11:21 Carvedilol 3.125 Mg Tablet PO 3.125 mg BID GAMALIEL Administration Protocol Dexamethasone 6 mg 12/16/20 09:00 12/19/20 11:19 Dexamethasone 6 Mg Tablet PO 6 mg DAILY GAMALIEL Administration Diltiazem HCl 240 mg 12/12/20 09:00 12/19/20 11:18 Diltiazem Hcl Cd 240 Mg Cap.Er.Deg PO 240 mg DAILY GAMALIEL Administration Protocol Doxycycline Hyclate 100 mg 12/15/20 15:00 12/19/20 14:47 Doxycycline Hyclate 100 Mg Tablet PO 100 mg Q12H GAMALIEL Administration Enalapril Maleate 10 mg 12/16/20 09:00 12/19/20 11:20 Enalapril Maleate 10 Mg Tablet PO 10 mg DAILY GAMALIEL Administration Protocol Enoxaparin Sodium 40 mg 12/14/20 13:00 12/19/20 14:47 Enoxaparin Sodium 40 Mg/0.4 Ml Syringe SUBCUT 40 mg Q24H GAMALIEL Administration Fluticasone/Vilanterol 1 puff 12/15/20 13:15 12/19/20 07:50 Fluticasone/Vilanterol 100/25 Blst.W.Dev INHALE 1 puff RDAILY GAMALIEL Administration Gabapentin 100 mg 12/11/20 21:00 12/18/20 21:36 Gabapentin 100 Mg Capsule PO 100 mg BEDTIME GAMALIEL Administration Insulin Glargine 25 unit 12/17/20 21:00 12/18/20 21:35 Insulin Glargine,Hum.Rec.Anlog 100 Unit/Ml 10 Ml Vial SUBCUT 25 unit BEDTIME GAMALIEL Administration Insulin Human Lispro 0 unit 12/13/20 16:30 12/19/20 11:41 Insulin Lispro 100 Unit/Ml 3 Ml Vial SUBCUT Not Given QIDACHS [facility] Protocol Isosorbide Mononitrate 60 mg 12/11/20 14:01 12/19/20 11:21 Isosorbide Mononitrate 60 Mg Tab.Er.24h PO 60 mg DAILY [facility] Administration Protocol Montelukast Sodium 10 mg 12/11/20 21:00 12/18/20 21:36 Montelukast Sodium 10 Mg Tablet PO 10 mg BEDTIME [facility] Administration Morphine Sulfate 2 mg 12/18/20 13:03 12/19/20 07:01 Morphine Sulfate 2 Mg/Ml [place] IVPUSH 2 mg Q6H PRN Administration sob Multivitamins/Vitamin C 1 tab 12/12/20 09:00 12/19/20 11:20 Multivitamin Tablet PO 1 tab DAILY [facility] Administration Non-Formulary Medication 500 mcg 12/12/20 09:00 Roflumilast [Daliresp] PO DAILY [facility] Omeprazole 20 mg 12/11/20 21:00 12/19/20 11:21 Omeprazole 20 Mg Capsule.Dr PO Not Given BID [facility] Ondansetron HCl 4 mg 12/11/20 14:01 12/12/20 12:52 Ondansetron Hcl 4 Mg/2 Ml Vial IVPUSH 4 mg Q8H PRN Administration Nausea and Vomiting Oxycodone HCl 2.5 mg 12/19/20 10:48 12/19/20 11:19 Oxycodone Hcl Immed Release 5 Mg Tablet PO 2.5 mg Q6H PRN Administration Pain, Moderate (Pain Scale 4-6 Pharmacy Consult 1 each 12/11/20 10:47 Consult Rx Perform Med Rec MISCELLANE ONCE PRN Consult order Sodium Chloride 3 ml 12/11/20 16:00 12/19/20 14:48 0.9 % Sodium Chloride Flush 3 Ml Syringe IVFLUSH 3 ml QSHIFT [facility] Administration Tiotropium [place] 1 puff 12/15/20 13:30 12/19/20 07:51 Tiotropium [place] 18 Mcg Cap.W.Dev INHALE Not Given RDAILY [facility] Labs CBC & Chem 7: 12/19/20 06:34 12/19/20 06:34 Microbiology Microbiology Results: Microbiology 12/11/20 10:53 Blood - Venous Blood Culture - Final No growth after 5 days. 12/11/20 10:51 Blood - Venous Blood Culture - Final No growth after 5 days. 12/14/20 18:58 Urine clean catch - Clean Catch Midstream Urine Culture - Final Assessment and Plan (1) Acute respiratory failure with hypoxia: Status: Acute (2) Pneumonia due to COVID-19 virus: Status: Acute (3) Valdovinos's esophagus: Problem details: had an EGD in 2018 in 2019, apparently she is also followed at [facility]. Status: Acute (4) GERD (gastroesophageal reflux disease): Status: Acute (5) Transaminitis: Status: Acute (6) Epistaxis: Status: Acute Assessment and Plan: 75 year old women admitted with Covid pneumonia. Mostly GI symptoms. Acute hypoxic respiratory failure due to covid 19 infection Patient not feeling well /appears uncomfortable tachypneic tachycardic therefore placed on high-flow oxygen 100% patient keeps removing nasal cannula Positive PCR on 12/08/20, case discussed with ID no role of remdesivir a convalescent plasma Epistaxis and hemoptysis resolved aspirin , Plavix and lovenox discontinued Continue Decadron day 08/06, on doxycycline b.i.d. Continue Breo, Spiriva, Singulair,and cough medication Repeated labs showed stable CBC, renal function, procalcitonin level 0.06, Repeat renal function electrolytes stable blood sugars less than 200 Elevated D-dimer cannot use Lovenox secondary to hemoptysis and epistaxis Continue supportive care , spoke with son Aaron Stallworth [phone] and updated him about patient's condition discussed code status he wishes to pursue CPR and intubation. Will use morphine and Xanax for anxiety and restlessness, Maintain oxygen above 90. Condition guarded Transient episode of epistaxis/hemoptysis No recurrent episodes, Likely due to dual platelet agent aspirin and Plavix also being on Lovenox , hematocrit stable follow clinical course Transaminitis. mild, stable, chronically elevated, but worse now likely due to COVID, no nausea, no vomiting no abdominal pain, follow LFT and discontinued Lipitor Hypertension. BP stable on home medication few high readings continue Coreg ,diltiazem,and vasotec. History of coronary artery disease Statins and aspirin on hold due to elevated LFTs and epistaxis/hemoptysis. Type 2 Diabetes. Had few episodes of hypoglycemia therefore dose of Lantus reduced fasting blood sugar 128 this morning, glipizide on hold, continue low-dose Lantus 25 at night, continue Sliding scale, ADA diet follow blood sugar closely Hyperlipidemia. Statin held due to elevated LFT. GERD. PPI. DVT PPX Lovenox
[2020-12-19 16:43] LABS: Glucose, Whole Blood 171 mg/dL (60-115)
[2020-12-19] MEDS: ALPRAZolam 0.25 MG TABLET PO (19:31)
[2020-12-19 20:40] LABS: Glucose, Whole Blood 239 mg/dL (60-115)
[2020-12-19] MEDS: Montelukast Sodium 10 MG TABLET PO (21:29)
[2020-12-19] MEDS: Insulin Lispro 100 UNIT/ML 3 ML VIAL SUBCUT (21:29)
[2020-12-19] MEDS: Omeprazole 20 MG CAPSULE.DR PO (21:29)
[2020-12-19] MEDS: Gabapentin 100 MG CAPSULE PO (21:29)
[2020-12-19] MEDS: Insulin Glargine,Hum.rec.anlog 100 UNIT/ML 10 ML VIAL 25 UNIT SUBCUT (21:30)
[2020-12-20] VITALS (14 sets, daily range): BP systolic 135–182; BP diastolic 66–92; PULSE 76–108; RESP 18–22; TEMP 36.1–36.6; O2SAT 90–99
[2020-12-20] MEDS: 0.9 % Sodium Chloride Flush 3 ML SYRINGE IVFLUSH ×3 (01:10→16:09)
[2020-12-20] MEDS: Fluticasone/Vilanterol 100/25 BLST.W.DEV 1 PUFF INHALE (07:26)
[2020-12-20 07:44] LABS: Glucose, Whole Blood 143 mg/dL (60-115)
[2020-12-20] MEDS: dexAMETHasone 6 MG TABLET PO (10:09)
[2020-12-20] MEDS: dilTIAZem HCL CD 240 MG CAP.ER.DEG PO (10:09)
[2020-12-20] MEDS: Benzonatate 100 MG CAPSULE PO ×3 (10:10→22:09)
[2020-12-20] MEDS: Calcium + Vitamin D 250 MG TABLET 500 MG PO (10:10)
[2020-12-20] MEDS: Enalapril Maleate 10 MG TABLET PO (10:11)
[2020-12-20] MEDS: carvediloL 3.125 MG TABLET PO ×2 (10:11→22:10)
[2020-12-20] MEDS: Multivitamin TABLET 1 TAB PO (10:14)
[2020-12-20] MEDS: Isosorbide Mononitrate 60 MG TAB.ER.24H PO (10:14)
[2020-12-20] MEDS: Omeprazole 20 MG CAPSULE.DR PO ×2 (10:14→22:09)
[2020-12-20] MEDS: Albuterol Sulfate (0.083%) 2.5 MG/3 ML VIAL.NEB INHALE ×2 (11:39→17:42)
[2020-12-20 11:40] LABS: Glucose, Whole Blood 167 mg/dL (60-115)
[2020-12-20] MEDS: Enoxaparin Sodium 40 MG/0.4 ML SYRINGE SUBCUT (12:24)
[2020-12-20] MEDS: Insulin Lispro 100 UNIT/ML 3 ML VIAL SUBCUT ×2 (12:24→18:03)
--- NOTE | 2020-12-20 14:20 | HO.PM.IMPN ---
Subjective Subjective Date of Service: 12/21/20 Interval History: Patient resting in bed appear more comfortable less restless, no further epistaxis, no hemoptysis currently on non-rebreather mask and high-flow oxygen 45 liters/minutes, she does not keep the cannula in place therefore high-flow mask is being used. 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 Neck is supple, no JVD. CVS regular rate rhythm, Respiratory lungs coarse breath sound, no wheeze, no rhonchi, Gastrointestinal abdomen soft, nontender, bowel sounds audible Extremities no edema. Neuro nonfocal, speech clear. Skin no rash Objective Data Current Medications Generic Name Dose Route Start Last Admin Trade Name Freq PRN Reason Stop Dose Admin Acetaminophen 650 mg 12/11/20 14:01 12/18/20 06:19 Acetaminophen 325 Mg Tablet PO 650 mg Q6H PRN Administration Pain, Mild (Pain Scale 1-3) Acetaminophen/Butalbital/Caffeine 1 tab 12/14/20 09:44 12/19/20 14:47 Butalb/Acetamin/Caff 50/325/40 Tablet PO 1 tab RQ6H PRN Administration Headache Albuterol Sulfate 2.5 mg 12/14/20 22:06 Albuterol Sulfate (0.083%) 2.5 Mg/3 Ml Vial.Neb INHALE Q2H PRN Shortness of Breath/Wheezing Albuterol Sulfate 4 puff 12/14/20 22:44 12/19/20 17:01 Albuterol Sulfate 90 Mcg 8 Gm Inhaler INHALE 4 puff Q2H PRN Administration Shortness of Breath/Wheezing Albuterol Sulfate 2.5 mg 12/16/20 18:00 12/20/20 11:39 Albuterol Sulfate (0.083%) 2.5 Mg/3 Ml Vial.Neb INHALE 2.5 mg RQ6H GAMALIEL Administration Alprazolam 0.25 mg 12/19/20 15:23 12/19/20 19:31 Alprazolam 0.25 Mg Tablet PO 0.25 mg TID PRN Administration anxiety Benzonatate 100 mg 12/15/20 15:00 12/20/20 10:10 Benzonatate 100 Mg Capsule PO 100 mg TID GAMALIEL Administration Calcium Carbonate/Cholecalciferol 500 mg 12/12/20 09:00 12/20/20 10:10 Calcium + Vitamin D 250 Mg Tablet PO 500 mg DAILY GAMALIEL Administration Carvedilol 3.125 mg 12/11/20 21:00 12/20/20 10:11 Carvedilol 3.125 Mg Tablet PO 3.125 mg BID GAMALIEL Administration Protocol Dexamethasone 6 mg 12/16/20 09:00 12/20/20 10:09 Dexamethasone 6 Mg Tablet PO 6 mg DAILY GAMALIEL Administration Diltiazem HCl 240 mg 12/12/20 09:00 12/20/20 10:09 Diltiazem Hcl Cd 240 Mg Cap.Er.Deg PO 240 mg DAILY GAMALIEL Administration Protocol Doxycycline Hyclate 100 mg 12/15/20 15:00 12/20/20 04:47 Doxycycline Hyclate 100 Mg Tablet PO 100 mg Q12H GAMALIEL Administration Enalapril Maleate 10 mg 12/16/20 09:00 12/20/20 10:11 Enalapril Maleate 10 Mg Tablet PO 10 mg DAILY GAMALIEL Administration Protocol Enoxaparin Sodium 40 mg 12/14/20 13:00 12/20/20 12:24 Enoxaparin Sodium 40 Mg/0.4 Ml Syringe SUBCUT 40 mg Q24H GAMALIEL Administration Fluticasone/Vilanterol 1 puff 12/15/20 13:15 12/20/20 07:26 Fluticasone/Vilanterol 100/25 Blst.W.Dev INHALE 1 puff RDAILY GAMALIEL Administration Gabapentin 100 mg 12/11/20 21:00 12/19/20 21:29 Gabapentin 100 Mg Capsule PO 100 mg BEDTIME GAMALIEL Administration Insulin Glargine 25 unit 12/17/20 21:00 12/19/20 21:30 Insulin Glargine,Hum.Rec.Anlog 100 Unit/Ml 10 Ml Vial SUBCUT 25 unit BEDTIME GAMALIEL Administration Insulin Human Lispro 0 unit 12/13/20 16:30 12/20/20 12:24 Insulin Lispro 100 Unit/Ml 3 Ml Vial SUBCUT 2 unit QIDACHS [facility] Administration Protocol Isosorbide Mononitrate 60 mg 12/11/20 14:01 12/20/20 10:14 Isosorbide Mononitrate 60 Mg Tab.Er.24h PO 60 mg DAILY [facility] Administration Protocol Montelukast Sodium 10 mg 12/11/20 21:00 12/19/20 21:29 Montelukast Sodium 10 Mg Tablet PO 10 mg BEDTIME [facility] Administration Morphine Sulfate 2 mg 12/18/20 13:03 12/19/20 07:01 Morphine Sulfate 2 Mg/Ml Cartridge IVPUSH 2 mg Q6H PRN Administration sob Multivitamins/Vitamin C 1 tab 12/12/20 09:00 12/20/20 10:14 Multivitamin Tablet PO 1 tab DAILY [facility] Administration Non-Formulary Medication 500 mcg 12/12/20 09:00 Roflumilast [Daliresp] PO DAILY [facility] Omeprazole 20 mg 12/11/20 21:00 12/20/20 10:14 Omeprazole 20 Mg Capsule. PO 20 mg BID [facility] Administration Ondansetron HCl 4 mg 12/11/20 14:01 12/12/20 12:52 Ondansetron Hcl 4 Mg/2 Ml Vial IVPUSH 4 mg Q8H PRN Administration Nausea and Vomiting Oxycodone HCl 2.5 mg 12/19/20 10:48 12/19/20 11:19 Oxycodone Hcl Immed Release 5 Mg Tablet PO 2.5 mg Q6H PRN Administration Pain, Moderate (Pain Scale 4-6 Pharmacy Consult 1 each 12/11/20 10:47 Consult Rx Perform Med Rec MISCELLANE ONCE PRN Consult order Sodium Chloride 3 ml 12/11/20 16:00 12/20/20 10:08 0.9 % Sodium Chloride Flush 3 Ml Syringe IVFLUSH 3 ml QSHIFT [facility] Administration Tiotropium [place] 1 puff 12/15/20 13:30 12/20/20 07:52 Tiotropium [place] 18 Mcg Cap.W.Dev INHALE 1 puff RDAILY [facility] Administration Labs CBC & Chem 7: 12/19/20 06:34 12/19/20 06:34 Microbiology Microbiology Results: Microbiology 12/11/20 10:53 Blood - Venous Blood Culture - Final No growth after 5 days. 12/11/20 10:51 Blood - Venous Blood Culture - Final No growth after 5 days. 12/14/20 18:58 Urine clean catch - Clean Catch Midstream Urine Culture - Final Assessment and Plan (1) Epistaxis: Status: Acute (2) Transaminitis: Status: Acute (3) Acute respiratory failure with hypoxia: Status: Acute (4) Pneumonia due to COVID-19 virus: Status: Acute (5) Elevated troponin: Status: Acute (6) COVID-19: Status: Acute Assessment and Plan: 75 year old women admitted with Covid pneumonia. Mostly GI symptoms. Acute hypoxic respiratory failure due to covid 19 infection Patient appears more comfortable this a.m. less tachypneic and tachycardia on high-flow oxygen weaned down to 45 liters/minute with 100% non-rebreather Positive PCR on 12/08/20, case discussed with ID no role of remdesivir a convalescent plasma Epistaxis and hemoptysis resolved aspirin , Plavix on hold Continue Decadron day 09/05, on doxycycline b.i.d.day 05/03, Continue Breo, Spiriva, Singulair,and cough medication. Repeat labs showed stable CBC, renal function, procalcitonin level 0.06, Repeat renal function electrolytes stable Elevated D-dimer Continue supportive care , spoke with son Aaron Stallworth [phone] on 12/19/20 and updated him about patient's condition discussed code status he wishes to pursue CPR and intubation. Continue morphine and Xanax for anxiety and restlessness, Maintain oxygen above 90. Condition improving slowly. Transient episode of epistaxis/hemoptysis No recurrent episodes, Likely due to dual platelet agent aspirin and Plavix on hold, hematocrit stable follow clinical course Transaminitis. stable, chronically elevated, but worse now likely due to COVID, no nausea, no vomiting no abdominal pain, follow LFT and discontinued Lipitor Hypertension. BP stable on home medication few high readings continue Coreg ,diltiazem,and vasotec. History of coronary artery disease Statins and aspirin on hold due to elevated LFTs and epistaxis/hemoptysis. Type 2 Diabetes. Blood sugar better controlled no hypoglycemic episode, glipizide on hold, continue low-dose Lantus 25 at night, continue Sliding scale, ADA diet follow blood sugar closely Hyperlipidemia. Statin held due to elevated LFT. GERD. PPI. DVT PPX Lovenox
[2020-12-20 16:47] LABS: Glucose, Whole Blood 163 mg/dL (60-115)
[2020-12-20 20:38] LABS: Glucose, Whole Blood 130 mg/dL (60-115)
[2020-12-20] MEDS: Gabapentin 100 MG CAPSULE PO (22:09)
[2020-12-20] MEDS: Montelukast Sodium 10 MG TABLET PO (22:09)
[2020-12-20] MEDS: Insulin Glargine,Hum.rec.anlog 100 UNIT/ML 10 ML VIAL 25 UNIT SUBCUT (22:13)
[2020-12-21] VITALS (15 sets, daily range): BP systolic 125–180; BP diastolic 69–84; PULSE 88–111; RESP 18–22; TEMP 36.1–37.2; O2SAT 88–97
[2020-12-21] MEDS: ALPRAZolam 0.25 MG TABLET PO (01:21)
[2020-12-21] MEDS: Butalb/Acetamin/Caff 50/325/40 TABLET 1 TAB PO (01:21)
[2020-12-21] MEDS: 0.9 % Sodium Chloride Flush 3 ML SYRINGE IVFLUSH ×4 (01:22→22:52)
[2020-12-21] MEDS: Albuterol Sulfate (0.083%) 2.5 MG/3 ML VIAL.NEB INHALE (06:38)
[2020-12-21 07:20] LABS: Glucose, Whole Blood 168 mg/dL (60-115)
[2020-12-21] MEDS: Isosorbide Mononitrate 60 MG TAB.ER.24H PO (07:59)
[2020-12-21] MEDS: Calcium + Vitamin D 250 MG TABLET 500 MG PO (07:59)
[2020-12-21] MEDS: Insulin Lispro 100 UNIT/ML 3 ML VIAL SUBCUT ×2 (07:59→17:13)
[2020-12-21] MEDS: dexAMETHasone 6 MG TABLET PO (07:59)
[2020-12-21] MEDS: Multivitamin TABLET 1 TAB PO (08:00)
[2020-12-21] MEDS: carvediloL 3.125 MG TABLET PO ×2 (08:00→22:51)
[2020-12-21] MEDS: Enalapril Maleate 10 MG TABLET PO (08:00)
[2020-12-21] MEDS: Omeprazole 20 MG CAPSULE.DR PO ×2 (08:00→22:51)
[2020-12-21] MEDS: dilTIAZem HCL CD 240 MG CAP.ER.DEG PO (08:00)
[2020-12-21] MEDS: Fluticasone/Vilanterol 100/25 BLST.W.DEV 1 PUFF INHALE (08:13)
[2020-12-21] MEDS: Benzonatate 100 MG CAPSULE PO ×3 (09:44→22:51)
[2020-12-21 11:23] LABS: Glucose, Whole Blood 149 mg/dL (60-115)
--- NOTE | 2020-12-21 12:17 | MHC.CM.PN ---
DP Female 75 DX Covid+ Pt continues on 10L O2 SPo2 92%. DP home with VNA and new Oxygen. The Pts son will provide transportation. CM will follow to assess for a change to DC needs.
--- NOTE | 2020-12-21 13:45 | P.PNIM_ITS ---
Subjective Subjective Date of Service: 12/21/20 Interval History: History obtained via junior account executive, Patient continued to complain of not feeling well, complain of generalized body ache, no fever chills,Remains on high-flow nasal cannula O2 sat 92%, no acute issues overnight. 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 Neck is supple, no JVD. CVS regular rate rhythm, Respiratory lungs clear to auscultation, no wheeze, no rhonchi, Gastrointestinal abdomen soft, nontender, bowel sounds audible Extremities no edema. Neuro nonfocal, speech clear, awake alert to place and person. Skin no rash Objective Data Current Medications Generic Name Dose Route Start Last Admin Trade Name Freq PRN Reason Stop Dose Admin Acetaminophen 650 mg 12/11/20 14:01 12/18/20 06:19 Acetaminophen 325 Mg Tablet PO 650 mg Q6H PRN Administration Pain, Mild (Pain Scale 1-3) Acetaminophen/Butalbital/Caffeine 1 tab 12/14/20 09:44 12/21/20 01:21 Butalb/Acetamin/Caff 50/325/40 Tablet PO 1 tab RQ6H PRN Administration Headache Albuterol Sulfate 2.5 mg 12/14/20 22:06 Albuterol Sulfate (0.083%) 2.5 Mg/3 Ml Vial.Neb INHALE Q2H PRN Shortness of Breath/Wheezing Albuterol Sulfate 4 puff 12/14/20 22:44 12/19/20 17:01 Albuterol Sulfate 90 Mcg 8 Gm Inhaler INHALE 4 puff Q2H PRN Administration Shortness of Breath/Wheezing Albuterol Sulfate 2.5 mg 12/16/20 18:00 12/21/20 11:21 Albuterol Sulfate (0.083%) 2.5 Mg/3 Ml Vial.Neb INHALE Not Given RQ6H GAMALIEL Alprazolam 0.25 mg 12/19/20 15:23 12/21/20 01:21 Alprazolam 0.25 Mg Tablet PO 0.25 mg TID PRN Administration anxiety Benzonatate 100 mg 12/15/20 15:00 12/21/20 09:44 Benzonatate 100 Mg Capsule PO 100 mg TID GAMALIEL Administration Calcium Carbonate/Cholecalciferol 500 mg 12/12/20 09:00 12/21/20 07:59 Calcium + Vitamin D 250 Mg Tablet PO 500 mg DAILY GAMALIEL Administration Carvedilol 3.125 mg 12/11/20 21:00 12/21/20 08:00 Carvedilol 3.125 Mg Tablet PO 3.125 mg BID GAMALIEL Administration Protocol Dexamethasone 6 mg 12/16/20 09:00 12/21/20 07:59 Dexamethasone 6 Mg Tablet PO 6 mg DAILY GAMALIEL Administration Diltiazem HCl 240 mg 12/12/20 09:00 12/21/20 08:00 Diltiazem Hcl Cd 240 Mg Cap.Er.Deg PO 240 mg DAILY GAMALIEL Administration Protocol Doxycycline Hyclate 100 mg 12/15/20 15:00 12/21/20 03:22 Doxycycline Hyclate 100 Mg Tablet PO 100 mg Q12H GAMALIEL Administration Enalapril Maleate 10 mg 12/16/20 09:00 12/21/20 08:00 Enalapril Maleate 10 Mg Tablet PO 10 mg DAILY GAMALIEL Administration Protocol Enoxaparin Sodium 40 mg 12/14/20 13:00 12/20/20 12:24 Enoxaparin Sodium 40 Mg/0.4 Ml Syringe SUBCUT 40 mg Q24H GAMALIEL Administration Fluticasone/Vilanterol 1 puff 12/15/20 13:15 12/21/20 08:13 Fluticasone/Vilanterol 100/25 Blst.W.Dev INHALE 1 puff RDAILY GAMALIEL Administration Gabapentin 100 mg 12/11/20 21:00 12/20/20 22:09 Gabapentin 100 Mg Capsule PO 100 mg BEDTIME GAMALIEL Administration Insulin Glargine 25 unit 12/17/20 21:00 12/20/20 22:13 Insulin Glargine,Hum.Rec.Anlog 100 Unit/Ml 10 Ml Vial SUBCUT 25 unit BEDTIME GAMALIEL Administration Insulin Human Lispro 0 unit 12/13/20 16:30 12/21/20 11:33 Insulin Lispro 100 Unit/Ml 3 Ml Vial SUBCUT Not Given QIDACHS [facility] Protocol Isosorbide Mononitrate 60 mg 12/11/20 14:01 12/21/20 07:59 Isosorbide Mononitrate 60 Mg Tab.Er.24h PO 60 mg DAILY [facility] Administration Protocol Montelukast Sodium 10 mg 12/11/20 21:00 12/20/20 22:09 Montelukast Sodium 10 Mg Tablet PO 10 mg BEDTIME [facility] Administration Morphine Sulfate 2 mg 12/18/20 13:03 12/19/20 07:01 Morphine Sulfate 2 Mg/Ml Cartridge IVPUSH 2 mg Q6H PRN Administration sob Multivitamins/Vitamin C 1 tab 12/12/20 09:00 12/21/20 08:00 Multivitamin Tablet PO 1 tab DAILY [facility] Administration Non-Formulary Medication 500 mcg 12/12/20 09:00 Roflumilast [Daliresp] PO DAILY [facility] Omeprazole 20 mg 12/11/20 21:00 12/21/20 08:00 Omeprazole 20 Mg Capsule. PO 20 mg BID [facility] Administration Ondansetron HCl 4 mg 12/11/20 14:01 12/12/20 12:52 Ondansetron Hcl 4 Mg/2 Ml Vial IVPUSH 4 mg Q8H PRN Administration Nausea and Vomiting Oxycodone HCl 2.5 mg 12/19/20 10:48 12/19/20 11:19 Oxycodone Hcl Immed Release 5 Mg Tablet PO 2.5 mg Q6H PRN Administration Pain, Moderate (Pain Scale 4-6 Pharmacy Consult 1 each 12/11/20 10:47 Consult Rx Perform Med Rec MISCELLANE ONCE PRN Consult order Sodium Chloride 3 ml 12/11/20 16:00 12/21/20 08:10 0.9 % Sodium Chloride Flush 3 Ml Syringe IVFLUSH 3 ml QSHIFT [facility] Administration Tiotropium [place] 1 puff 12/15/20 13:30 12/21/20 08:17 Tiotropium [place] 18 Mcg Cap.W.Dev INHALE 1 puff RDAILY [facility] Administration Labs CBC & Chem 7: 12/19/20 06:34 12/19/20 06:34 Microbiology Microbiology Results: Microbiology 12/11/20 10:53 Blood - Venous Blood Culture - Final No growth after 5 days. 12/11/20 10:51 Blood - Venous Blood Culture - Final No growth after 5 days. 12/14/20 18:58 Urine clean catch - Clean Catch Midstream Urine Culture - Final Assessment and Plan (1) Acute respiratory failure with hypoxia: Status: Acute (2) Pneumonia due to COVID-19 virus: Status: Acute (3) Epistaxis: Status: Acute (4) Transaminitis: Status: Acute (5) Elevated troponin: Status: Acute Assessment and Plan: 75 year old women admitted with Covid pneumonia. Mostly GI symptoms. Acute hypoxic respiratory failure due to covid 19 infection Patient condition unchanged since yesterday remains on high-flow oxygen,45 liters/minute does not appear to be in respiratory distress Epistaxis and hemoptysis resolved aspirin , Plavix on hold Continue Decadron day 10, last day on doxycycline b.i.d.06/02, Continue Breo, Spiriva, Singulair,and cough medication. Repeat labs showed stable CBC, renal function, procalcitonin level 0.06, elevated D-dimer Positive PCR on 12/08/20, case discussed with ID no role of remdesivir or convalescent plasma. Continue supportive care , spoke with son Aarno Stallworth [phone] on 12/19/20 and updated him about patient's condition discussed code status he wishes to pursue CPR and intubation. Continue morphine and Xanax for anxiety and restlessness, Maintain oxygen above 90. Condition improving slowly. Transient episode of epistaxis/hemoptysis No recurrent episodes, Likely due to dual platelet agent aspirin and Plavix currently on hold, hematocrit stable follow clinical course, will resume Plavix Transaminitis. stable, chronically elevated, but worse now likely due to COVID, no nausea, no vomiting no abdominal pain, follow LFT , Lipitor discontinued Hypertension. BP stable on home medication few high readings continue Coreg ,diltiazem,and vasotec. History of coronary artery disease Statins and aspirin on hold due to elevated LFTs and epistaxis/hemoptysis. Patient has allergy to aspirin therefore was on Plavix Type 2 Diabetes. Blood sugar better controlled no hypoglycemic episode, glipizide on hold, continue low-dose Lantus 25 at night, continue Sliding scale, ADA diet follow blood sugar closely Hyperlipidemia. Statin held due to elevated LFT. GERD. PPI. DVT PPX Lovenox
[2020-12-21] MEDS: Enoxaparin Sodium 40 MG/0.4 ML SYRINGE SUBCUT (14:27)
[2020-12-21 16:51] LABS: Glucose, Whole Blood 184 mg/dL (60-115)
--- NOTE | 2020-12-21 17:26 | PC.NURSE ---
Patient frequently removing oxygen while awake. Telesitter in room for patient safety. Patient oriented to person only and has no safety awareness regarding importance of o2 despite frequent reminders from staff.
[2020-12-21 20:28] LABS: Glucose, Whole Blood 167 mg/dL (60-115)
[2020-12-21] MEDS: Gabapentin 100 MG CAPSULE PO (22:51)
[2020-12-21] MEDS: Insulin Glargine,Hum.rec.anlog 100 UNIT/ML 10 ML VIAL 25 UNIT SUBCUT (22:51)
[2020-12-21] MEDS: Montelukast Sodium 10 MG TABLET PO (22:51)
[2020-12-22] VITALS (14 sets, daily range): BP systolic 103–154; BP diastolic 60–92; PULSE 72–106; RESP 18–28; TEMP 36.1–37.2; O2SAT 88–103
[2020-12-22 07:22] LABS: Glucose, Whole Blood 165 mg/dL (60-115)
[2020-12-22] MEDS: Fluticasone/Vilanterol 100/25 BLST.W.DEV 1 PUFF INHALE (07:47)
[2020-12-22] MEDS: Enalapril Maleate 10 MG TABLET PO (08:32)
[2020-12-22] MEDS: Benzonatate 100 MG CAPSULE PO ×3 (08:32→21:51)
[2020-12-22] MEDS: Insulin Lispro 100 UNIT/ML 3 ML VIAL SUBCUT ×2 (08:32→21:50)
[2020-12-22] MEDS: 0.9 % Sodium Chloride Flush 3 ML SYRINGE IVFLUSH ×2 (08:32→16:41)
[2020-12-22] MEDS: Omeprazole 20 MG CAPSULE.DR PO ×2 (08:33→21:51)
[2020-12-22] MEDS: Calcium + Vitamin D 250 MG TABLET 500 MG PO (08:33)
[2020-12-22] MEDS: dexAMETHasone 6 MG TABLET PO (08:33)
[2020-12-22] MEDS: Isosorbide Mononitrate 60 MG TAB.ER.24H PO (08:33)
[2020-12-22] MEDS: Multivitamin TABLET 1 TAB PO (08:33)
[2020-12-22] MEDS: carvediloL 3.125 MG TABLET PO ×2 (08:33→21:52)
[2020-12-22] MEDS: dilTIAZem HCL CD 240 MG CAP.ER.DEG PO (08:34)
[2020-12-22 09:32] LABS: Alanine Aminotransferase 73 U/L (0-31); Albumin Level 3.2 g/dL (3.5-5.0); Alkaline Phosphatase 96 U/L (39-117); Anion Gap 17 (12-20); Aspartate Amino Transferase 60 U/L (5-31); Bilirubin Direct 0.3 mg/dL (0.0-0.5); Bilirubin Total 0.7 mg/dL (0.0-1.0); Blood Urea Nitrogen 28 mg/dL (9-16); Calcium 8.8 mg/dL (8.4-10.2); Carbon Dioxide 25 mmol/L (22-29); Chloride 109 mmol/L (96-108); Creatinine Clr Calc Pharmacy 70.4; Estimated Glomerular Filt Rate > 60; Glucose Random 158 mg/dL (60-115); Potassium 3.7 mmol/l (3.3-5.1); Sodium 147 mmol/L (135-145); Total Protein 6.7 g/dL (6.5-8.0)
[2020-12-22 11:13] LABS: Glucose, Whole Blood 110 mg/dL (60-115)
[2020-12-22] MEDS: ALPRAZolam 0.25 MG TABLET PO (11:32)
[2020-12-22] MEDS: Enoxaparin Sodium 40 MG/0.4 ML SYRINGE SUBCUT (14:21)
--- NOTE | 2020-12-22 15:34 | P.PNIM_ITS ---
Subjective Subjective Date of Service: 12/23/20 Interval History: Patient resting in bed, continued to complain of generalized weakness and not feeling well, currently on 100% non-rebreather with finger oximetry 97%, no overnight issues no fever no chills. 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 Neck is supple, no JVD. CVS regular rate rhythm, Respiratory lungs bilateral expiratory rhonchi, no wheeze Gastrointestinal abdomen soft, nontender, bowel sounds audible Extremities no edema. Neuro nonfocal, speech clear, awake alert to place and person. Skin no rash Objective Data Current Medications Generic Name Dose Route Start Last Admin Trade Name Freq PRN Reason Stop Dose Admin Acetaminophen 650 mg 12/11/20 14:01 12/18/20 06:19 Acetaminophen 325 Mg Tablet PO 650 mg Q6H PRN Administration Pain, Mild (Pain Scale 1-3) Acetaminophen/Butalbital/Caffeine 1 tab 12/14/20 09:44 12/21/20 01:21 Butalb/Acetamin/Caff 50/325/40 Tablet PO 1 tab RQ6H PRN Administration Headache Albuterol Sulfate 2.5 mg 12/14/20 22:06 Albuterol Sulfate (0.083%) 2.5 Mg/3 Ml Vial.Neb INHALE Q2H PRN Shortness of Breath/Wheezing Albuterol Sulfate 4 puff 12/14/20 22:44 12/19/20 17:01 Albuterol Sulfate 90 Mcg 8 Gm Inhaler INHALE 4 puff Q2H PRN Administration Shortness of Breath/Wheezing Albuterol Sulfate 2.5 mg 12/16/20 18:00 12/22/20 15:03 Albuterol Sulfate (0.083%) 2.5 Mg/3 Ml Vial.Neb INHALE Not Given RQ6H GAMALIEL Alprazolam 0.25 mg 12/19/20 15:23 12/22/20 11:32 Alprazolam 0.25 Mg Tablet PO 0.25 mg TID PRN Administration anxiety Benzonatate 100 mg 12/15/20 15:00 12/22/20 14:22 Benzonatate 100 Mg Capsule PO 100 mg TID GAMALIEL Administration Calcium Carbonate/Cholecalciferol 500 mg 12/12/20 09:00 12/22/20 08:33 Calcium + Vitamin D 250 Mg Tablet PO 500 mg DAILY GAMALIEL Administration Carvedilol 3.125 mg 12/11/20 21:00 12/22/20 08:33 Carvedilol 3.125 Mg Tablet PO 3.125 mg BID [facility] Administration Protocol Dexamethasone 6 mg 12/16/20 09:00 12/22/20 08:33 Dexamethasone 6 Mg Tablet PO 6 mg DAILY GAMALIEL Administration Diltiazem HCl 240 mg 12/12/20 09:00 12/22/20 08:34 Diltiazem Hcl Cd 240 Mg Cap.Er.Deg PO 240 mg DAILY [facility] Administration Protocol Enalapril Maleate 10 mg 12/16/20 09:00 12/22/20 08:32 Enalapril Maleate 10 Mg Tablet PO 10 mg DAILY [facility] Administration Protocol Enoxaparin Sodium 40 mg 12/14/20 13:00 12/22/20 14:21 Enoxaparin Sodium 40 Mg/0.4 Ml Syringe SUBCUT 40 mg Q24H GAMALIEL Administration Fluticasone/Vilanterol 1 puff 12/15/20 13:15 12/22/20 07:47 Fluticasone/Vilanterol 100/25 Blst.W.Dev INHALE 1 puff RDAILY GAMALIEL Administration Gabapentin 100 mg 12/11/20 21:00 12/21/20 22:51 Gabapentin 100 Mg Capsule PO 100 mg BEDTIME GAMALIEL Administration Insulin Glargine 25 unit 12/17/20 21:00 12/21/20 22:51 Insulin Glargine,Hum.Rec.Anlog 100 Unit/Ml 10 Ml Vial SUBCUT 25 unit BEDTIME GAMALIEL Administration Insulin Human Lispro 0 unit 12/13/20 16:30 12/22/20 11:19 Insulin Lispro 100 Unit/Ml 3 Ml Vial SUBCUT Not Given QIDACHS [facility] Protocol Isosorbide Mononitrate 60 mg 12/11/20 14:01 12/22/20 08:33 Isosorbide Mononitrate 60 Mg Tab.Er.24h PO 60 mg DAILY [facility] Administration Protocol Montelukast Sodium 10 mg 12/11/20 21:00 12/21/20 22:51 Montelukast Sodium 10 Mg Tablet PO 10 mg BEDTIME GAMALIEL Administration Morphine Sulfate 2 mg 12/18/20 13:03 12/19/20 07:01 Morphine Sulfate 2 Mg/Ml Cartridge IVPUSH 2 mg Q6H PRN Administration sob Multivitamins/Vitamin C 1 tab 12/12/20 09:00 12/22/20 08:33 Multivitamin Tablet PO 1 tab DAILY [facility] Administration Non-Formulary Medication 500 mcg 12/12/20 09:00 Roflumilast [Daliresp] PO DAILY [facility] Omeprazole 20 mg 12/11/20 21:00 12/22/20 08:33 Omeprazole 20 Mg Capsule.Dr PO 20 mg BID [facility] Administration Ondansetron HCl 4 mg 12/11/20 14:01 12/12/20 12:52 Ondansetron Hcl 4 Mg/2 Ml Vial IVPUSH 4 mg Q8H PRN Administration Nausea and Vomiting Oxycodone HCl 2.5 mg 12/19/20 10:48 12/19/20 11:19 Oxycodone Hcl Immed Release 5 Mg Tablet PO 2.5 mg Q6H PRN Administration Pain, Moderate (Pain Scale 4-6 Pharmacy Consult 1 each 12/11/20 10:47 Consult Rx Perform Med Rec MISCELLANE ONCE PRN Consult order Sodium Chloride 3 ml 12/11/20 16:00 12/22/20 08:32 0.9 % Sodium Chloride Flush 3 Ml Syringe IVFLUSH 3 ml QSHIFT [facility] Administration Tiotropium [place] 1 puff 12/15/20 13:30 12/22/20 07:50 Tiotropium [place] 18 Mcg Cap.W.Dev INHALE Not Given RDAILY [facility] Labs CBC & Chem 7: 12/23/20 05:31 12/23/20 05:31 Microbiology Microbiology Results: Microbiology 12/11/20 10:53 Blood - Venous Blood Culture - Final No growth after 5 days. 12/11/20 10:51 Blood - Venous Blood Culture - Final No growth after 5 days. 12/14/20 18:58 Urine clean catch - Clean Catch Midstream Urine Culture - Final Assessment and Plan (1) Epistaxis: Status: Acute (2) Transaminitis: Status: Acute (3) Acute respiratory failure with hypoxia: Status: Acute (4) Pneumonia due to COVID-19 virus: Status: Acute (5) Elevated troponin: Status: Acute (6) Pulmonary nodules: Problem details: 2019 CT abd with stable pulmonary nodule Status: Acute (7) COVID-19: Status: Acute Assessment and Plan: 75 year old women admitted with Covid pneumonia. Mostly GI symptoms. Acute hypoxic respiratory failure due to covid 19 infection Patient resp status slowly improving,now on 15liter O2 by oximizer no respiratory distress,still weak Epistaxis and hemoptysis resolved aspirin , Plavix on hold Continue Decadron day 11, finished course of doxycycline Continue Breo, Spiriva, Singulair,and cough medication.dc scheduled ventolin mdi Repeat labs showed mild hypernatremia,stable CBC, renal function, procalcitonin level 0.06, elevated D-dimer Positive PCR on 12/08/20, case discussed with ID no role of remdesivir or convalescent plasma. Continue supportive care , HCP son Aaron Stallworth [phone] wishes to pursue CPR and intubation. Continue morphine and Xanax for anxiety and restlessness, Maintain oxygen above 90. Transient episode of epistaxis/hemoptysis No recurrent episodes, Likely due to dual platelet agent aspirin and Plavix currently on hold, hematocrit stable follow clinical course Transaminitis. stable, chronically elevated, but worse now likely due to COVID, no nausea, no v omiting no abdominal pain, follow LFT , Lipitor discontinued Hypertension. BP stable on home medication few high readings continue Coreg ,diltiazem,and vasotec. History of coronary artery disease Statins and aspirin on hold due to elevated LFTs and epistaxis/hemoptysis. Patient has allergy to aspirin therefore was on Plavix Type 2 Diabetes. Blood sugar better controlled no hypoglycemic episode, glipizide on hold, continue low-dose Lantus 25 at night, continue Sliding scale, ADA diet follow b lood sugar closely Hyperlipidemia. Statin held due to elevated LFT. GERD. PPI. DVT PPX Lovenox
[2020-12-22 16:31] LABS: Glucose, Whole Blood 129 mg/dL (60-115)
[2020-12-22] MEDS: Dextrose 5 % and 0.45 % NaCl 1,000 ML 80 ML IVCONT (19:59)
[2020-12-22 20:25] LABS: Glucose, Whole Blood 268 mg/dL (60-115)
[2020-12-22] MEDS: Insulin Glargine,Hum.rec.anlog 100 UNIT/ML 10 ML VIAL 25 UNIT SUBCUT (21:49)
[2020-12-22] MEDS: Gabapentin 100 MG CAPSULE PO (21:51)
[2020-12-22] MEDS: Montelukast Sodium 10 MG TABLET PO (21:51)
[2020-12-23] VITALS (12 sets, daily range): BP systolic 108–140; BP diastolic 59–68; PULSE 65–82; RESP 17–90; TEMP 36.2–36.5; O2SAT 91–100
[2020-12-23 06:53] LABS: Hematocrit 35.5 % (37-47); Hemoglobin 10.8 g/dl (12.0-16.0)
[2020-12-23 07:24] LABS: Anion Gap 21 (12-20); Blood Urea Nitrogen 50 mg/dL (9-16); Calcium 8.6 mg/dL (8.4-10.2); Carbon Dioxide 19 mmol/L (22-29); Chloride 106 mmol/L (96-108); Creatinine Clr Calc Pharmacy 52.8; Estimated Glomerular Filt Rate > 60; Glucose Random 432 mg/dL (60-115); Potassium 4.5 mmol/l (3.3-5.1); Sodium 141 mmol/L (135-145)
[2020-12-23] MEDS: Fluticasone/Vilanterol 100/25 BLST.W.DEV 1 PUFF INHALE (07:35)
[2020-12-23 07:48] LABS: Glucose, Whole Blood 394 mg/dL (60-115)
[2020-12-23] MEDS: Insulin Lispro 100 UNIT/ML 3 ML VIAL SUBCUT ×4 (08:18→22:01)
[2020-12-23] MEDS: 0.9 % Sodium Chloride Flush 3 ML SYRINGE IVFLUSH ×3 (08:18→22:02)
[2020-12-23] MEDS: dexAMETHasone 6 MG TABLET PO (08:19)
[2020-12-23] MEDS: Multivitamin TABLET 1 TAB PO (08:19)
[2020-12-23] MEDS: Dextrose 5 % and 0.45 % NaCl 1,000 ML 80 ML IVCONT (08:19)
[2020-12-23] MEDS: Omeprazole 20 MG CAPSULE.DR PO ×2 (08:19→22:00)
[2020-12-23] MEDS: Benzonatate 100 MG CAPSULE PO ×3 (08:19→22:00)
[2020-12-23] MEDS: Calcium + Vitamin D 250 MG TABLET 500 MG PO (08:19)
[2020-12-23] MEDS: Isosorbide Mononitrate 60 MG TAB.ER.24H PO (10:26)
[2020-12-23] MEDS: dilTIAZem HCL CD 240 MG CAP.ER.DEG PO (10:27)
[2020-12-23] MEDS: Enalapril Maleate 10 MG TABLET PO (10:27)
[2020-12-23] MEDS: carvediloL 3.125 MG TABLET PO ×2 (10:27→22:00)
[2020-12-23] MEDS: oxyCODONE HCl Immed Release 5 MG TABLET 2.5 MG PO (11:08)
[2020-12-23] MEDS: Acetaminophen 325 MG TABLET 650 MG PO (11:09)
[2020-12-23 11:40] LABS: Glucose, Whole Blood 385 mg/dL (60-115)
--- NOTE | 2020-12-23 11:50 | MHC.CM.PN ---
Patient continues to need high flow O2 for COVID+, on 50 liters O2 with FIO2 at 100%. Discharge plan is home with [facility]. Son will provide transport. CM will continue to follow for discharge needs.
[2020-12-23] MEDS: Enoxaparin Sodium 40 MG/0.4 ML SYRINGE SUBCUT (12:13)
[2020-12-23 16:17] LABS: Glucose, Whole Blood 338 mg/dL (60-115)
[2020-12-23] MEDS: Albuterol Sulfate 90 MCG 8 GM INHALER 4 PUFF INHALE (17:09)
[2020-12-23] MEDS: Albuterol Sulfate 90 MCG 8 GM INHALER 2 PUFF INHALE (17:11)
--- NOTE | 2020-12-23 17:23 | HO.PM.IMPN ---
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 ROS history via lens molding equipment operator Constitutional generalized weakness, body ache, CVS no chest pain Respiratory mild cough , mild shortness of breath GI no abdominal pain, no nausea, no vomiting, loose stool Physical Exam Vital Signs: Vital Signs: Last Vital Signs Temp 97.6 F 12/23/20 15:51 Pulse 76 12/23/20 15:51 Resp 24 H 12/23/20 15:51 BP 113/61 12/23/20 15:51 Pulse Ox 92 12/23/20 15:51 Body Mass Index 25.7 General resting in bed, does not appear restless, no respiratory distress , appears ill awake alert to time place and person answers appropriately Neck is supple, no JVD. CVS regular rate rhythm, Respiratory lungs bilateral expiratory rhonchi, no wheeze Gastrointestinal abdomen soft, nontender, bowel sounds audible Extremities no edema. Neuro nonfocal, speech clear Skin no rash Objective Data Current Medications Generic Name Dose Route Start Last Admin Trade Name Freq PRN Reason Stop Dose Admin Acetaminophen 650 mg 12/11/20 14:01 12/23/20 11:09 Acetaminophen 325 Mg Tablet PO 650 mg Q6H PRN Administration Pain, Mild (Pain Scale 1-3) Acetaminophen/Butalbital/Caffeine 1 tab 12/14/20 09:44 12/21/20 01:21 Butalb/Acetamin/Caff 50/325/40 Tablet PO 1 tab RQ6H PRN Administration Headache Albuterol Sulfate 2.5 mg 12/14/20 22:06 Albuterol Sulfate (0.083%) 2.5 Mg/3 Ml Vial.Neb INHALE Q2H PRN Shortness of Breath/Wheezing Albuterol Sulfate 4 puff 12/14/20 22:44 12/23/20 17:09 Albuterol Sulfate 90 Mcg 8 Gm Inhaler INHALE 4 puff Q2H PRN Administration Shortness of Breath/Wheezing Albuterol Sulfate 2 puff 12/23/20 18:00 12/23/20 17:11 Albuterol Sulfate 90 Mcg 8 Gm Inhaler INHALE 2 puff RQ6H GAMALIEL Administration Alprazolam 0.25 mg 12/19/20 15:23 12/22/20 11:32 Alprazolam 0.25 Mg Tablet PO 0.25 mg TID PRN Administration anxiety Benzonatate 100 mg 12/15/20 15:00 12/23/20 14:43 Benzonatate 100 Mg Capsule PO 100 mg TID G[facility]ALIEL Administration Calcium Carbonate/Cholecalciferol 500 mg 12/12/20 09:00 12/23/20 08:19 Calcium + Vitamin D 250 Mg Tablet PO 500 mg DAILY [facility] Administration Carvedilol 3.125 mg 12/11/20 21:00 12/23/20 10:27 Carvedilol 3.125 Mg Tablet PO 3.125 mg BID [facility] Administration Protocol Dexamethasone 6 mg 12/16/20 09:00 12/23/20 08:19 Dexamethasone 6 Mg Tablet PO 6 mg DAILY [facility] Administration Diltiazem HCl 240 mg 12/12/20 09:00 12/23/20 10:27 Diltiazem Hcl Cd 240 Mg Cap.Er.Deg PO 240 mg DAILY [facility] Administration Protocol Enalapril Maleate 10 mg 12/16/20 09:00 12/23/20 10:27 Enalapril Maleate 10 Mg Tablet PO 10 mg DAILY [facility] Administration Protocol Enoxaparin Sodium 40 mg 12/14/20 13:00 12/23/20 12:13 Enoxaparin Sodium 40 Mg/0.4 Ml Syringe SUBCUT 40 mg Q24H [facility] Administration Fluticasone/Vilanterol 1 puff 12/15/20 13:15 12/23/20 07:35 Fluticasone/Vilanterol 100/25 Blst.W.Dev INHALE 1 puff RDAILY [facility] Administration Gabapentin 100 mg 12/11/20 21:00 12/22/20 21:51 Gabapentin 100 Mg Capsule PO 100 mg BEDTIME [facility] Administration Insulin Glargine 25 unit 12/17/20 21:00 12/22/20 21:49 Insulin Glargine,Hum.Rec.Anlog 100 Unit/Ml 10 Ml Vial SUBCUT 25 unit BEDTIME [facility] Administration Insulin Human Lispro 0 unit 12/13/20 16:30 12/23/20 16:52 Insulin Lispro 100 Unit/Ml 3 Ml Vial SUBCUT 8 unit QIDACHS [facility] Administration Protocol Isosorbide Mononitrate 60 mg 12/11/20 14:01 12/23/20 10:26 Isosorbide Mononitrate 60 Mg Tab.Er.24h PO 60 mg DAILY [facility] Administration Protocol Montelukast Sodium 10 mg 12/11/20 21:00 12/22/20 21:51 Montelukast Sodium 10 Mg Tablet PO 10 mg BEDTIME [facility] Administration Multivitamins/Vitamin C 1 tab 12/12/20 09:00 12/23/20 08:19 Multivitamin Tablet PO 1 tab DAILY [facility] Administration Omeprazole 20 mg 12/11/20 21:00 12/23/20 08:19 Omeprazole 20 Mg Capsule.Dr PO 20 mg BID [facility] Administration Ondansetron HCl 4 mg 12/11/20 14:01 12/12/20 12:52 Ondansetron Hcl 4 Mg/2 Ml Vial IVPUSH 4 mg Q8H PRN Administration Nausea and Vomiting Oxycodone HCl 2.5 mg 12/19/20 10:48 12/23/20 11:08 Oxycodone Hcl Immed Release 5 Mg Tablet PO 2.5 mg Q6H PRN Administration Pain, Moderate (Pain Scale 4-6 Pharmacy Consult 1 each 12/11/20 10:47 Consult Rx Perform Med Rec MISCELLANE ONCE PRN Consult order Sodium Chloride 3 ml 12/11/20 16:00 12/23/20 16:52 0.9 % Sodium Chloride Flush 3 Ml Syringe IVFLUSH 3 ml QSHIFT [facility] Administration Tiotropium [place] 1 puff 12/15/20 13:30 12/23/20 07:35 Tiotropium [place] 18 Mcg Cap.W.Dev INHALE Not Given RDAILY [facility] Labs CBC & Chem 7: 12/23/20 05:31 12/23/20 05:31 Microbiology Microbiology Results: Microbiology 12/11/20 10:53 Blood - Venous Blood Culture - Final No growth after 5 days. 12/11/20 10:51 Blood - Venous Blood Culture - Final No growth after 5 days. 12/14/20 18:58 Urine clean catch - Clean Catch Midstream Urine Culture - Final Assessment and Plan (1) Epistaxis: Status: Acute (2) Transaminitis: Status: Acute (3) Acute respiratory failure with hypoxia: Status: Acute (4) Pneumonia due to COVID-19 virus: Status: Acute (5) COVID-19: Status: Acute Assessment and Plan: 75 year old women admitted with Covid pneumonia. Mostly GI symptoms. Acute hypoxic respiratory failure due to covid 19 infection Patient resp status slowly improving, but oxygen requirement continued to fluctuate between Oxymizer, high-flow and 100% non-rebreather, currently on high-flow and non breather Epistaxis and hemoptysis resolved aspirin , Plavix on hold Continue Decadron day 12, finished course of doxycycline Continue Breo, Spiriva, Singulair,and cough medication. Will resume scheduled ventolin mdi stable CBC, renal function, procalcitonin level 0.06, elevated D-dimer Positive PCR on 12/08/20, case discussed with ID no role of remdesivir or convalescent plasma. Continue supportive care , HCP son Aaron Stallworth [phone] wishes to pursue CPR and intubation. Continue morphine and Xanax for anxiety and restlessness, Maintain oxygen above 90. Poor by mouth intake will add Glucerna Mild hypernatremia resolved with IV fluid Transient episode of epistaxis/hemoptysis No recurrent episodes, Likely due to dual platelet agent aspirin and Plavix currently on hold, hematocrit stable follow clinical course Transaminitis. stable, chronically elevated, but worse now likely due to COVID, no nausea, no vomiting no abdominal pain, LFTs trending down and stable, Lipitor discontinued Hypertension. BP stable on home medication few high readings continue Coreg ,diltiazem,and vasotec. History of coronary artery disease Statins and aspirin on hold due to elevated LFTs and epistaxis/hemoptysis. Patient has allergy to aspirin therefore was on Plavix Type 2 Diabetes. Blood sugar elevated today, previously had hypoglycemic episodes therefore glipizide on hold,on low-dose Lantus 25 at night, at home takes 42 units at bedtime, continue Sliding scale, ADA diet follow blood sugar closely if blood sugars remains elevated tomorrow will increase dose of Lantus Hyperlipidemia. Statin held due to elevated LFT. GERD. PPI. DVT PPX Lovenox
[2020-12-23 20:04] LABS: Glucose, Whole Blood 380 mg/dL (60-115)
[2020-12-23] MEDS: Gabapentin 100 MG CAPSULE PO (22:00)
[2020-12-23] MEDS: Montelukast Sodium 10 MG TABLET PO (22:00)
[2020-12-23] MEDS: Insulin Glargine,Hum.rec.anlog 100 UNIT/ML 10 ML VIAL 25 UNIT SUBCUT (22:01)
[2020-12-24] VITALS (13 sets, daily range): BP systolic 100–136; BP diastolic 53–76; PULSE 65–100; RESP 20–22; TEMP 36.4–37.1; O2SAT 90–100
[2020-12-24] MEDS: oxyCODONE HCl Immed Release 5 MG TABLET 2.5 MG PO (01:56)
[2020-12-24 07:43] LABS: Glucose, Whole Blood 170 mg/dL (60-115)
[2020-12-24] MEDS: Fluticasone/Vilanterol 100/25 BLST.W.DEV 1 PUFF INHALE (07:57)
[2020-12-24] MEDS: Omeprazole 20 MG CAPSULE.DR PO ×2 (09:02→22:29)
[2020-12-24] MEDS: Enalapril Maleate 10 MG TABLET PO (09:03)
[2020-12-24] MEDS: Calcium + Vitamin D 250 MG TABLET 500 MG PO (09:03)
[2020-12-24] MEDS: Benzonatate 100 MG CAPSULE PO ×3 (09:03→22:29)
[2020-12-24] MEDS: Isosorbide Mononitrate 60 MG TAB.ER.24H PO (09:03)
[2020-12-24] MEDS: dilTIAZem HCL CD 240 MG CAP.ER.DEG PO (09:03)
[2020-12-24] MEDS: Multivitamin TABLET 1 TAB PO (09:03)
[2020-12-24] MEDS: dexAMETHasone 6 MG TABLET PO (09:03)
[2020-12-24] MEDS: carvediloL 3.125 MG TABLET PO ×2 (09:04→22:29)
[2020-12-24] MEDS: 0.9 % Sodium Chloride Flush 3 ML SYRINGE IVFLUSH ×2 (09:04→16:29)
[2020-12-24] MEDS: Insulin Lispro 100 UNIT/ML 3 ML VIAL SUBCUT ×4 (09:04→22:29)
[2020-12-24 11:20] LABS: Glucose, Whole Blood 204 mg/dL (60-115)
[2020-12-24] MEDS: Albuterol Sulfate 90 MCG 8 GM INHALER 4 PUFF INHALE ×2 (12:01→23:24)
[2020-12-24] MEDS: Albuterol Sulfate 90 MCG 8 GM INHALER 2 PUFF INHALE ×2 (12:09→17:41)
[2020-12-24] MEDS: Enoxaparin Sodium 40 MG/0.4 ML SYRINGE SUBCUT (12:52)
[2020-12-24 16:19] LABS: Glucose, Whole Blood 413 mg/dL (60-115)
--- NOTE | 2020-12-24 16:41 | HO.PM.IMPN ---
Subjective Subjective Date of Service: 12/24/20 Interval History: Patient seen and examined at bedside patient continues to require high-flow ROS history via medical interpreter Constitutional generalized weakness, body ache, CVS no chest pain Respiratory mild cough , mild shortness of breath GI no abdominal pain, no nausea, no vomiting, loose stool Physical Exam Vital Signs: Vital Signs: Last Vital Signs Temp 98.7 F 12/24/20 15:14 Pulse 93 12/24/20 15:14 Resp 20 12/24/20 15:55 BP 135/67 12/24/20 15:14 Pulse Ox 92 12/24/20 15:14 Body Mass Index 25.7 Const: Other: General ill-appearing. Neck is supple no JVD. CVS regular rate rhythm, Respiratory lungs clear to auscultation today, no respiratory distress Gastrointestinal abdomen soft, nontender, bowel sounds audible Extremities edema. Neuro nonfocal, speech clear. Skin no rash Objective Data Current Medications Generic Name Dose Route Start Last Admin Trade Name Freq PRN Reason Stop Dose Admin Acetaminophen 650 mg 12/11/20 14:01 12/23/20 11:09 Acetaminophen 325 Mg Tablet PO 650 mg Q6H PRN Administration Pain, Mild (Pain Scale 1-3) Acetaminophen/Butalbital/Caffeine 1 tab 12/14/20 09:44 12/21/20 01:21 Butalb/Acetamin/Caff 50/325/40 Tablet PO 1 tab RQ6H PRN Administration Headache Albuterol Sulfate 2.5 mg 12/14/20 22:06 Albuterol Sulfate (0.083%) 2.5 Mg/3 Ml Vial.Neb INHALE Q2H PRN Shortness of Breath/Wheezing Albuterol Sulfate 4 puff 12/14/20 22:44 12/24/20 12:01 Albuterol Sulfate 90 Mcg 8 Gm Inhaler INHALE 4 puff Q2H PRN Administration Shortness of Breath/Wheezing Albuterol Sulfate 2 puff 12/23/20 18:00 12/24/20 12:09 Albuterol Sulfate 90 Mcg 8 Gm Inhaler INHALE 2 puff RQ6H GAMALIEL Administration Alprazolam 0.25 mg 12/19/20 15:23 12/22/20 11:32 Alprazolam 0.25 Mg Tablet PO 0.25 mg TID PRN Administration anxiety Benzonatate 100 mg 12/15/20 15:00 12/24/20 16:29 Benzonatate 100 Mg Capsule PO 100 mg TID GAMALIEL Administration Calcium Carbonate/Cholecalciferol 500 mg 12/12/20 09:00 12/24/20 09:03 Calcium + Vitamin D 250 Mg Tablet PO 500 mg DAILY G[facility]IEL Administration Carvedilol 3.125 mg 12/11/20 21:00 12/24/20 09:04 Carvedilol 3.125 Mg Tablet PO 3.125 mg BID G[facility]ALIEL Administration Protocol Diltiazem HCl 240 mg 12/12/20 09:00 12/24/20 09:03 Diltiazem Hcl Cd 240 Mg Cap.Er.Deg PO 240 mg DAILY [facility] Administration Protocol Enalapril Maleate 10 mg 12/16/20 09:00 12/24/20 09:03 Enalapril Maleate 10 Mg Tablet PO 10 mg DAILY GAMALIEL Administration Protocol Enoxaparin Sodium 40 mg 12/14/20 13:00 12/24/20 12:52 Enoxaparin Sodium 40 Mg/0.4 Ml Syringe SUBCUT 40 mg Q24H GAMALIEL Administration Fluticasone/Vilanterol 1 puff 12/15/20 13:15 12/24/20 07:57 Fluticasone/Vilanterol 100/25 Blst.W.Dev INHALE 1 puff RDAILY G[facility]IEL Administration Gabapentin 100 mg 12/11/20 21:00 12/23/20 22:00 Gabapentin 100 Mg Capsule PO 100 mg BEDTIME G[facility]ALIEL Administration Insulin Glargine 25 unit 12/17/20 21:00 12/23/20 22:01 Insulin Glargine,Hum.Rec.Anlog 100 Unit/Ml 10 Ml Vial SUBCUT 25 unit BEDTIME G[facility]ALIEL Administration Insulin Human Lispro 0 unit 12/13/20 16:30 12/24/20 16:29 Insulin Lispro 100 Unit/Ml 3 Ml Vial SUBCUT 10 unit QIDACHS [facility] Administration Protocol Isosorbide Mononitrate 60 mg 12/11/20 14:01 12/24/20 09:03 Isosorbide Mononitrate 60 Mg Tab.Er.24h PO 60 mg DAILY G[facility]ALIEL Administration Protocol Montelukast Sodium 10 mg 12/11/20 21:00 12/23/20 22:00 Montelukast Sodium 10 Mg Tablet PO 10 mg BEDTIME G[facility]ALIEL Administration Multivitamins/Vitamin C 1 tab 01/16/21 09:00 12/24/20 09:03 Multivitamin Tablet PO 1 tab DAILY [facility] Administration Omeprazole 20 mg 12/11/20 21:00 12/24/20 09:02 Omeprazole 20 Mg Capsule.Dr PO 20 mg BID G[facility]ALIEL Administration Ondansetron HCl 4 mg 12/11/20 14:01 12/12/20 12:52 Ondansetron Hcl 4 Mg/2 Ml Vial IVPUSH 4 mg Q8H PRN Administration Nausea and Vomiting Oxycodone HCl 2.5 mg 12/19/20 10:48 12/24/20 01:56 Oxycodone Hcl Immed Release 5 Mg Tablet PO 2.5 mg Q6H PRN Administration Pain, Moderate (Pain Scale 4-6 Pharmacy Consult 1 each 12/11/20 10:47 Consult Rx Perform Med Rec MISCELLANE ONCE PRN Consult order Sodium Chloride 3 ml 12/11/20 16:00 12/24/20 16:29 0.9 % Sodium Chloride Flush 3 Ml Syringe IVFLUSH 3 ml QSHIFT [facility] Administration Tiotropium [place] 1 puff 12/15/20 13:30 12/24/20 07:58 Tiotropium [place] 18 Mcg Cap.W.Dev INHALE Not Given RDAILY [facility] Labs CBC & Chem 7: 12/23/20 05:31 12/23/20 05:31 Microbiology Microbiology Results: Microbiology 12/11/20 10:53 Blood - Venous Blood Culture - Final No growth after 5 days. 12/11/20 10:51 Blood - Venous Blood Culture - Final No growth after 5 days. 12/14/20 18:58 Urine clean catch - Clean Catch Midstream Urine Culture - Final Assessment and Plan (1) Epistaxis: Status: Acute (2) Transaminitis: Status: Acute (3) Acute respiratory failure with hypoxia: Status: Acute (4) Pneumonia due to COVID-19 virus: Status: Acute (5) COVID-19: Status: Acute Assessment and Plan: 75 year old women admitted with Covid pneumonia. Mostly GI symptoms. Acute hypoxic respiratory failure due to covid 19 infection Patient resp status slowly improving, but oxygen requirement continued to fluctuate between Oxymizer, high-flow and 100% non-rebreather, currently on high-flow and non breather Epistaxis and hemoptysis resolved aspirin , Plavix on hold Continue Decadron day 12, finished course of doxycycline Continue Breo, Spiriva, Singulair,and cough medication. Will resume scheduled ventolin mdi stable CBC, renal function, procalcitonin level 0.06, elevated D-dimer Positive PCR on 12/08/20, case discussed with ID no role of remdesivir or convalescent plasma. Continue supportive care , HCP son Aaron Stallworth [phone] wishes to pursue CPR and intubation. Continue morphine and Xanax for anxiety and restlessness, Maintain oxygen above 90. Poor by mouth intake will add Glucerna Mild hypernatremia resolved with IV fluid Transient episode of epistaxis/hemoptysis No recurrent episodes, Likely due to dual platelet agent aspirin and Plavix currently on hold, hematocrit stable follow clinical course Transaminitis. stable, chronically elevated, but worse now likely due to COVID, no nausea, no vomiting no abdominal pain, LFTs trending down and stable, Lipitor discontinued Hypertension. BP stable on home medication few high readings continue Coreg ,diltiazem,and vasotec. History of coronary artery disease Statins and aspirin on hold due to elevated LFTs and epistaxis/hemoptysis. Patient has allergy to aspirin therefore was on Plavix Type 2 Diabetes. Blood sugar elevated today, previously had hypoglycemic episodes therefore glipizide on hold,on low-dose Lantus 25 at night, at home takes 42 units at bedtime, continue Sliding scale, ADA diet follow blood sugar closely if blood sugars remains elevated tomorrow will increase dose of Lantus Hyperlipidemia. Statin held due to elevated LFT. GERD. PPI. DVT PPX Lovenox
[2020-12-24] MEDS: ALPRAZolam 0.25 MG TABLET PO (16:58)
--- NOTE | 2020-12-24 19:06 | PC.NURSE ---
POC 413,Dr Estrella mixon,notified via [employer]. no new orders.covered with 10 units of Humalog per sliding scale.
[2020-12-24 21:10] LABS: Glucose, Whole Blood 368 mg/dL (60-115)
[2020-12-24] MEDS: Montelukast Sodium 10 MG TABLET PO (22:29)
[2020-12-24] MEDS: Gabapentin 100 MG CAPSULE PO (22:29)
[2020-12-24] MEDS: Insulin Glargine,Hum.rec.anlog 100 UNIT/ML 10 ML VIAL 25 UNIT SUBCUT (22:30)
[2020-12-25] VITALS (18 sets, daily range): BP systolic 105–142; BP diastolic 58–73; PULSE 67–100; RESP 18–26; TEMP 36.2–36.8; O2SAT 90–117
[2020-12-25] MEDS: 0.9 % Sodium Chloride Flush 3 ML SYRINGE IVFLUSH ×3 (00:04→16:16)
[2020-12-25] MEDS: Albuterol Sulfate 90 MCG 8 GM INHALER 2 PUFF INHALE ×3 (03:29→18:05)
[2020-12-25] MEDS: Fluticasone/Vilanterol 100/25 BLST.W.DEV 1 PUFF INHALE (07:28)
[2020-12-25 07:47] LABS: Glucose, Whole Blood 204 mg/dL (60-115)
[2020-12-25] MEDS: Insulin Lispro 100 UNIT/ML 3 ML VIAL SUBCUT ×2 (08:28→21:22)
[2020-12-25] MEDS: Isosorbide Mononitrate 60 MG TAB.ER.24H PO (08:29)
[2020-12-25] MEDS: carvediloL 3.125 MG TABLET PO ×2 (08:29→21:23)
[2020-12-25] MEDS: Multivitamin TABLET 1 TAB PO (08:29)
[2020-12-25] MEDS: Omeprazole 20 MG CAPSULE.DR PO ×2 (08:29→21:23)
[2020-12-25] MEDS: Calcium + Vitamin D 250 MG TABLET 500 MG PO (08:29)
[2020-12-25] MEDS: Enalapril Maleate 10 MG TABLET PO (08:29)
[2020-12-25] MEDS: Benzonatate 100 MG CAPSULE PO ×3 (08:30→21:23)
[2020-12-25] MEDS: dilTIAZem HCL CD 240 MG CAP.ER.DEG PO (08:30)
[2020-12-25 11:36] LABS: Glucose, Whole Blood 131 mg/dL (60-115)
[2020-12-25] MEDS: Enoxaparin Sodium 40 MG/0.4 ML SYRINGE SUBCUT (12:59)
--- NOTE | 2020-12-25 13:16 | MHC.CM.PN ---
Patient continues to require high flow O2 @ 40 liters with FIO2 of 70% high flow for COVID +. Discharge plan is home with [facility] if O2 is needed. Neftali Walker will provide transportation. CM will continue to follow patient for discharge needs.
--- NOTE | 2020-12-25 14:17 | HO.PM.IMPN ---
Subjective Subjective Date of Service: 12/25/20 Interval History: Patient seen and examined at bedside patient continues to require high-flow ROS history via diplomatic interpreter/translator Constitutional generalized weakness, body ache, CVS no chest pain Respiratory mild cough , mild shortness of breath GI no abdominal pain, no nausea, no vomiting, loose stool Physical Exam Vital Signs: Vital Signs: Last Vital Signs Temp 98.2 F 12/25/20 11:34 Pulse 85 12/25/20 12:09 Resp 20 12/25/20 12:11 BP 142/70 H 12/25/20 11:34 Pulse Ox 90 L 12/25/20 11:34 Body Mass Index 25.7 Const: Other: General ill-appearing. Neck is supple no JVD. CVS regular rate rhythm, Respiratory lungs clear to auscultation today, no respiratory distress Gastrointestinal abdomen soft, nontender, bowel sounds audible Extremities edema. Neuro nonfocal, speech clear. Skin no rash Cardio: Other: General ill-appearing. Neck is supple no JVD. CVS regular rate rhythm, Respiratory lungs clear to auscultation today, no respiratory distress Gastrointestinal abdomen soft, nontender, bowel sounds audible Extremities edema. Neuro nonfocal, speech clear. Skin no rash Objective Data Current Medications Generic Name Dose Route Start Last Admin Trade Name Freq PRN Reason Stop Dose Admin Acetaminophen 650 mg 12/11/20 14:01 12/23/20 11:09 Acetaminophen 325 Mg Tablet PO 650 mg Q6H PRN Administration Pain, Mild (Pain Scale 1-3) Acetaminophen/Butalbital/Caffeine 1 tab 12/14/20 09:44 12/21/20 01:21 Butalb/Acetamin/Caff 50/325/40 Tablet PO 1 tab RQ6H PRN Administration Headache Albuterol Sulfate 2.5 mg 12/14/20 22:06 Albuterol Sulfate (0.083%) 2.5 Mg/3 Ml Vial.Neb INHALE Q2H PRN Shortness of Breath/Wheezing Albuterol Sulfate 4 puff 12/14/20 22:44 12/24/20 23:24 Albuterol Sulfate 90 Mcg 8 Gm Inhaler INHALE 4 puff Q2H PRN Administration Shortness of Breath/Wheezing Albuterol Sulfate 2 puff 12/23/20 18:00 12/25/20 12:05 Albuterol Sulfate 90 Mcg 8 Gm Inhaler INHALE 2 puff RQ6H GAMALIEL Administration Alprazolam 0.25 mg 12/19/20 15:23 12/24/20 16:58 Alprazolam 0.25 Mg Tablet PO 0.25 mg TID PRN Administration anxiety Benzonatate 100 mg 12/15/20 15:00 12/25/20 08:30 Benzonatate 100 Mg Capsule PO 100 mg TID G[facility]ALIEL Administration Calcium Carbonate/Cholecalciferol 500 mg 12/12/20 09:00 12/25/20 08:29 Calcium + Vitamin D 250 Mg Tablet PO 500 mg DAILY [facility] Administration Carvedilol 3.125 mg 12/11/20 21:00 12/25/20 08:29 Carvedilol 3.125 Mg Tablet PO 3.125 mg BID [facility] Administration Protocol Diltiazem HCl 240 mg 12/12/20 09:00 12/25/20 08:30 Diltiazem Hcl Cd 240 Mg Cap.Er.Deg PO 240 mg DAILY [facility] Administration Protocol Enalapril Maleate 10 mg 12/16/20 09:00 12/25/20 08:29 Enalapril Maleate 10 Mg Tablet PO 10 mg DAILY [facility] Administration Protocol Enoxaparin Sodium 40 mg 12/14/20 13:00 12/25/20 12:59 Enoxaparin Sodium 40 Mg/0.4 Ml Syringe SUBCUT 40 mg Q24H [facility] Administration Fluticasone/Vilanterol 1 puff 12/15/20 13:15 12/25/20 07:28 Fluticasone/Vilanterol 100/25 Blst.W.Dev INHALE 1 puff RDAILY [facility] Administration Gabapentin 100 mg 12/11/20 21:00 12/24/20 22:29 Gabapentin 100 Mg Capsule PO 100 mg BEDTIME [facility] Administration Insulin Glargine 25 unit 12/17/20 21:00 12/24/20 22:30 Insulin Glargine,Hum.Rec.Anlog 100 Unit/Ml 10 Ml Vial SUBCUT 25 unit BEDTIME [facility] Administration Insulin Human Lispro 0 unit 12/13/20 16:30 12/25/20 11:54 Insulin Lispro 100 Unit/Ml 3 Ml Vial SUBCUT Not Given QIDACHS [facility] Protocol Isosorbide Mononitrate 60 mg 12/11/20 14:01 12/25/20 08:29 Isosorbide Mononitrate 60 Mg Tab.Er.24h PO 60 mg DAILY [facility] Administration Protocol Montelukast Sodium 10 mg 12/11/20 21:00 12/24/20 22:29 Montelukast Sodium 10 Mg Tablet PO 10 mg BEDTIME [facility] Administration Multivitamins/Vitamin C 1 tab 12/12/20 09:00 12/25/20 08:29 Multivitamin Tablet PO 1 tab DAILY [facility] Administration Omeprazole 20 mg 12/11/20 21:00 12/25/20 08:29 Omeprazole 20 Mg Capsule.Dr PO 20 mg BID [facility] Administration Ondansetron HCl 4 mg 12/11/20 14:01 12/12/20 12:52 Ondansetron Hcl 4 Mg/2 Ml Vial IVPUSH 4 mg Q8H PRN Administration Nausea and Vomiting Oxycodone HCl 2.5 mg 12/19/20 10:48 12/24/20 01:56 Oxycodone Hcl Immed Release 5 Mg Tablet PO 2.5 mg Q6H PRN Administration Pain, Moderate (Pain Scale 4-6 Pharmacy Consult 1 each 12/11/20 10:47 Consult Rx Perform Med Rec MISCELLANE ONCE PRN Consult order Sodium Chloride 3 ml 12/11/20 16:00 12/25/20 08:29 0.9 % Sodium Chloride Flush 3 Ml Syringe IVFLUSH 3 ml QSHIFT [facility] Administration Tiotropium [place] 1 puff 12/15/20 13:30 12/25/20 07:29 Tiotropium [place] 18 Mcg Cap.W.Dev INHALE 1 puff RDAILY [facility] Administration Labs CBC & Chem 7: 12/23/20 05:31 12/23/20 05:31 Microbiology Microbiology Results: Microbiology 12/11/20 10:53 Blood - Venous Blood Culture - Final No growth after 5 days. 12/11/20 10:51 Blood - Venous Blood Culture - Final No growth after 5 days. 12/14/20 18:58 Urine clean catch - Clean Catch Midstream Urine Culture - Final Assessment and Plan (1) Epistaxis: Status: Acute (2) Transaminitis: Status: Acute (3) Acute respiratory failure with hypoxia: Status: Acute (4) Pneumonia due to COVID-19 virus: Status: Acute (5) COVID-19: Status: Acute Assessment and Plan: 75 year old women admitted with Covid pneumonia. Mostly GI symptoms. Acute hypoxic respiratory failure due to covid 19 infection Patient resp status slowly improving, but oxygen requirement continued to fluctuate between Oxymizer, high-flow and 100% non-rebreather, currently on high-flow and non breather Epistaxis and hemoptysis resolved aspirin , Plavix on hold Completed dexamethasone, finished course of doxycycline Continue Breo, Spiriva, Singulair,and cough medication. continue scheduled ventolin mdi stable CBC, renal function, procalcitonin level 0.06, elevated D-dimer Positive PCR on 12/08/20, case discussed with ID no role of remdesivir or convalescent plasma. Continue supportive care , HCP son Aaron Stallworth [phone] wishes to pursue CPR and intubation. Continue morphine and Xanax for anxiety and restlessness, Maintain oxygen above 90. Poor by mouth intake continue Glucerna Mild hypernatremia resolved with IV fluid Transient episode of epistaxis/hemoptysis No recurrent episodes, Likely due to dual platelet agent aspirin and Plavix currently on hold, hematocrit stable follow clinical course Transaminitis. stable, chronically elevated, but worse now likely due to COVID, no nausea, no vomiting no abdominal pain, LFTs trending down and stable, Lipitor discontinued Hypertension. BP stable on home medication few high readings continue Coreg ,diltiazem,and vasotec. History of coronary artery disease Statins and aspirin on hold due to elevated LFTs and epistaxis/hemoptysis. Patient has allergy to aspirin therefore was on Plavix Type 2 Diabetes. continue Lantus and sliding scale insulin monitor blood glucose Hyperlipidemia. Statin held due to elevated LFT. GERD. PPI. DVT PPX Lovenox
[2020-12-25] MEDS: ALPRAZolam 0.25 MG TABLET PO (16:19)
[2020-12-25] MEDS: Acetaminophen 325 MG TABLET 650 MG PO (16:19)
[2020-12-25 16:37] LABS: Glucose, Whole Blood 145 mg/dL (60-115)
[2020-12-25 21:06] LABS: Glucose, Whole Blood 204 mg/dL (60-115)
[2020-12-25] MEDS: Gabapentin 100 MG CAPSULE PO (21:23)
[2020-12-25] MEDS: Insulin Glargine,Hum.rec.anlog 100 UNIT/ML 10 ML VIAL 25 UNIT SUBCUT (21:23)
[2020-12-25] MEDS: Montelukast Sodium 10 MG TABLET PO (21:24)
[2020-12-26] VITALS (14 sets, daily range): BP systolic 117–172; BP diastolic 68–85; PULSE 82–123; RESP 18–94; TEMP 36.1–37; O2SAT 88–100
--- NOTE | 2020-12-26 | XR_ITS ---
EXAMINATION: XR CHEST CLINICAL INFORMATION: Respiratory distress COMPARISON: 12/11/2020 TECHNIQUE: Frontal view of the chest was obtained. FINDINGS: Lung volumes are symmetric. There are more extensive regions of multifocal airspace opacity bilaterally compared to 12/11/2020, with mid to lower lung zone predominance. No pneumothorax is seen. No significant pleural effusion. Cardiomediastinal silhouette is suboptimally assessed due to the adjacent bilateral pulmonary opacities. No acute osseous findings are seen. XR/XR chest 1V IMPRESSION: Extensive multifocal bilateral airspace opacities, worsened from 12/11/2020.
--- NOTE | 2020-12-26 | ECG_ITS ---
Test Reason : r/o any underlying arrythmia Blood Pressure : / mmHG Vent. Rate : 114 BPM Atrial Rate : 114 BPM P-R Int : 120 ms QRS Dur : 076 ms QT Int : 244 ms P-R-T Axes : 026 028 171 degrees QTc Int : 336 ms Sinus tachycardia Possible Left atrial enlargement Nonspecific ST changes Abnormal ECG When compared to the previous EKG of No significant changes seen Referred By: Sally Cortez Electronically Signed By:Franco Chavez
[2020-12-26] MEDS: 0.9 % Sodium Chloride Flush 3 ML SYRINGE IVFLUSH ×3 (01:01→17:25)
--- NOTE | 2020-12-26 03:27 | PM.EVENT ---
Event Note Date of Service: 12/26/20 Event Note: Patient at present is septic secondary to covid 19 infection. BP of 172/68, HR of 123 and HR of 32. Highflow to be now combined with NRBM. Oxygen saturation 98%. stat CXR showing worsened opacities bilaterally compared to prior imaging. No evidence of fever. ABG showing PH of 7.49 and CO2 33. Will start Zosyn now for broadcoverage and get stat CBC/BMP. Infectious disease consult in the am.
[2020-12-26 04:03] LABS: Pt Ventilation O2% 100%
[2020-12-26 04:06] LABS: ABG PCO2 33 mmHg (32-45); PO2 ABG 53 mmHg (83-108); pH ABG 7.49 (7.35-7.45)
[2020-12-26 04:07] LABS: Base Excess ABG 3.1; HCO3 ABG 26 mmol/L (22-26)
[2020-12-26 05:15] LABS: MANUAL DIFF FLAG NO
[2020-12-26 05:26] LABS: Basophils Percent Auto 0.2 % (0-2); Eosinophils Absolute Auto 0.2 X10*3/uL (0.0-0.4); Eosinophils Percent Auto 1.4 % (0-4); Hematocrit 36.9 % (37-47); Hemoglobin 11.9 g/dl (12.0-16.0); Imm Gran Pct Auto 0.8 % (0.0-0.4); Lymphocytes Absolute Auto 0.9 X10*3/uL (1.2-4.9); Lymphocytes Percent Auto 7.5 % (20-40); Mean Corpuscular HGB Conc 32.2 g/dl (31.0-35.0); Mean Corpuscular Hemoglobin 29.7 pg (27.0-33.0); Monocytes Absolute Auto 0.9 X10*3/uL (0.1-1.2); Monocytes Percent Auto 6.9 % (2-11); Neutrophils Absolute Auto 10.3 X10*3/uL (2.0-8.3); Neutrophils Percent Auto 83.2 % (45-73); Platelet Count 447 X10*3/uL (160-400); Red Blood Count 4.01 X10*6/uL (4.20-5.50); Red Cell Distribution Width 13.6 % (11.0-16.0); White Blood Count 12.3 X10*3/uL (4.8-10.8)
[2020-12-26 05:40] LABS: Anion Gap 16 (12-20); Blood Urea Nitrogen 22 mg/dL (9-16); Carbon Dioxide 24 mmol/L (22-29); Chloride 108 mmol/L (96-108); Creatinine Clr Calc Pharmacy 68.2; Estimated Glomerular Filt Rate > 60; Glucose Random 133 mg/dL (60-115); Potassium 3.7 mmol/L (3.3-5.1); Sodium 144 mmol/L (135-145)
[2020-12-26 07:22] LABS: Glucose, Whole Blood 127 mg/dL (60-115)
[2020-12-26] MEDS: Fluticasone/Vilanterol 100/25 BLST.W.DEV 1 PUFF INHALE (07:42)
[2020-12-26] MEDS: Omeprazole 20 MG CAPSULE.DR PO ×2 (09:15→20:34)
[2020-12-26] MEDS: Benzonatate 100 MG CAPSULE PO ×3 (09:15→20:34)
[2020-12-26] MEDS: Isosorbide Mononitrate 60 MG TAB.ER.24H PO (09:15)
[2020-12-26] MEDS: Multivitamin TABLET 1 TAB PO (09:16)
[2020-12-26] MEDS: Enalapril Maleate 10 MG TABLET PO (09:16)
[2020-12-26] MEDS: carvediloL 3.125 MG TABLET PO ×2 (09:16→20:34)
[2020-12-26] MEDS: Calcium + Vitamin D 250 MG TABLET 500 MG PO (09:16)
[2020-12-26] MEDS: dilTIAZem HCL CD 240 MG CAP.ER.DEG PO (09:16)
[2020-12-26 11:47] LABS: Glucose, Whole Blood 146 mg/dL (60-115)
[2020-12-26] MEDS: Enoxaparin Sodium 40 MG/0.4 ML SYRINGE SUBCUT (13:59)
[2020-12-26 16:32] LABS: Glucose, Whole Blood 172 mg/dL (60-115)
[2020-12-26] MEDS: Insulin Lispro 100 UNIT/ML 3 ML VIAL SUBCUT (17:25)
--- NOTE | 2020-12-26 17:26 | HO.PM.IMPN ---
Subjective Subjective Date of Service: 12/26/20 Interval History: Patient seen and examined at bedside patient continues to require high-flow ROS Constitutional generalized weakness, body ache, CVS no chest pain Respiratory mild cough , mild shortness of breath GI no abdominal pain, no nausea, no vomiting, loose stool Physical Exam Vital Signs: Vital Signs: Last Vital Signs Temp 97.9 F 12/26/20 15:47 Pulse 111 H 12/26/20 15:47 Resp 27 H 12/26/20 15:47 BP 137/85 12/26/20 15:47 Pulse Ox 92 12/26/20 15:47 Body Mass Index 25.7 Cardio: Other: General ill-appearing. Neck is supple no JVD. CVS regular rate rhythm, Respiratory lungs clear to auscultation today, no respiratory distress Gastrointestinal abdomen soft, nontender, bowel sounds audible Extremities edema. Neuro nonfocal, speech clear. Skin no rash Objective Data Current Medications Generic Name Dose Route Start Last Admin Trade Name Freq PRN Reason Stop Dose Admin Acetaminophen 650 mg 12/11/20 14:01 12/25/20 16:19 Acetaminophen 325 Mg Tablet PO 650 mg Q6H PRN Administration Pain, Mild (Pain Scale 1-3) Acetaminophen/Butalbital/Caffeine 1 tab 12/14/20 09:44 12/21/20 01:21 Butalb/Acetamin/Caff 50/325/40 Tablet PO 1 tab RQ6H PRN Administration Headache Alprazolam 0.25 mg 12/19/20 15:23 12/25/20 16:19 Alprazolam 0.25 Mg Tablet PO 0.25 mg TID PRN Administration anxiety Benzonatate 100 mg 12/15/20 15:00 12/26/20 13:59 Benzonatate 100 Mg Capsule PO 100 mg TID GAMALIEL Administration Calcium Carbonate/Cholecalciferol 500 mg 12/12/20 09:00 12/26/20 09:16 Calcium + Vitamin D 250 Mg Tablet PO 500 mg DAILY GAMALIEL Administration Carvedilol 3.125 mg 12/11/20 21:00 12/26/20 09:16 Carvedilol 3.125 Mg Tablet PO 3.125 mg BID GAMALIEL Administration Protocol Diltiazem HCl 240 mg 12/12/20 09:00 12/26/20 09:16 Diltiazem Hcl Cd 240 Mg Cap.Er.Deg PO 240 mg DAILY GAMALIEL Administration Protocol Enalapril Maleate 10 mg 12/16/20 09:00 12/26/20 09:16 Enalapril Maleate 10 Mg Tablet PO 10 mg DAILY GAMALIEL Administration Protocol Enoxaparin Sodium 40 mg 12/14/20 13:00 12/26/20 13:59 Enoxaparin Sodium 40 Mg/0.4 Ml Syringe SUBCUT 40 mg Q24H GAMALIEL Administration Fluticasone/Vilanterol 1 puff 12/15/20 13:15 12/26/20 07:42 Fluticasone/Vilanterol 100/25 Blst.W.Dev INHALE 1 puff RDAILY GAMALIEL Administration Gabapentin 100 mg 12/11/20 21:00 12/25/20 21:23 Gabapentin 100 Mg Capsule PO 100 mg BEDTIME GAMALIEL Administration Insulin Glargine 25 unit 12/17/20 21:00 12/25/20 21:23 Insulin Glargine,Hum.Rec.Anlog 100 Unit/Ml 10 Ml Vial SUBCUT 25 unit BEDTIME GAMALIEL Administration Insulin Human Lispro 0 unit 12/13/20 16:30 12/26/20 17:25 Insulin Lispro 100 Unit/Ml 3 Ml Vial SUBCUT 2 unit QIDACHS [facility] Administration Protocol Isosorbide Mononitrate 60 mg 12/11/20 14:01 12/26/20 09:15 Isosorbide Mononitrate 60 Mg Tab.Er.24h PO 60 mg DAILY GAMALIEL Administration Protocol Levalbuterol HCl 1.25 mg 12/26/20 03:26 Levalbuterol Hcl 1.25 Mg/0.5 Ml Vial.Neb INHALE Q3H PRN Shortness of Breath Montelukast Sodium 10 mg 12/11/20 21:00 12/25/20 21:24 Montelukast Sodium 10 Mg Tablet PO 10 mg BEDTIME GAMALIEL Administration Multivitamins/Vitamin C 1 tab 12/12/20 09:00 12/26/20 09:16 Multivitamin Tablet PO 1 tab DAILY GAMALIEL Administration Omeprazole 20 mg 12/11/20 21:00 12/26/20 09:15 Omeprazole 20 Mg Capsule.Dr PO 20 mg BID GAMALIEL Administration Ondansetron HCl 4 mg 12/11/20 14:01 12/12/20 12:52 Ondansetron Hcl 4 Mg/2 Ml Vial IVPUSH 4 mg Q8H PRN Administration Nausea and Vomiting Oxycodone HCl 2.5 mg 12/19/20 10:48 12/24/20 01:56 Oxycodone Hcl Immed Release 5 Mg Tablet PO 2.5 mg Q6H PRN Administration Pain, Moderate (Pain Scale 4-6 Pharmacy Consult 1 each 12/11/20 10:47 Consult Rx Perform Med Rec MISCELLANE ONCE PRN Consult order Sodium Chloride 3 ml 12/11/20 16:00 12/26/20 17:25 0.9 % Sodium Chloride Flush 3 Ml Syringe IVFLUSH 3 ml QSHIFT GAMALIEL Administration Tiotropium [place] 1 puff 12/15/20 13:30 12/26/20 07:43 Tiotropium [place] 18 Mcg Cap.W.Dev INHALE 1 puff RDAILY GAMALIEL Administration Labs CBC & Chem 7: 12/26/20 04:56 12/26/20 04:56 Microbiology Microbiology Results: Microbiology 12/11/20 10:53 Blood - Venous Blood Culture - Final No growth after 5 days. 12/11/20 10:51 Blood - Venous Blood Culture - Final No growth after 5 days. 12/14/20 18:58 Urine clean catch - Clean Catch Midstream Urine Culture - Final Assessment and Plan (1) Epistaxis: Status: Acute (2) Transaminitis: Status: Acute (3) Acute respiratory failure with hypoxia: Status: Acute (4) Pneumonia due to COVID-19 virus: Status: Acute (5) COVID-19: Status: Acute Assessment and Plan: 75 year old women admitted with Covid pneumonia. Mostly GI symptoms. Acute hypoxic respiratory failure due to covid 19 infection Patient resp status slowly improving, but oxygen requirement continued high-flow and as needed non-rebreather Epistaxis and hemoptysis resolved aspirin , Plavix on hold Completed dexamethasone, finished course of doxycycline Continue Breo, Spiriva, Singulair,and cough medication. continue scheduled ventolin mdi stable CBC, renal function, procalcitonin level 0.06, elevated D-dimer Positive PCR on 12/08/20, case discussed with ID no role of remdesivir or convalescent plasma. Continue supportive care , HCP bhaskar Stallworth [phone] wishes to pursue CPR and intubation. Continue morphine and Xanax for anxiety and restlessness, Maintain oxygen above 90. Poor by mouth intake continue Glucerna Mild hypernatremia resolved with IV fluid Transient episode of epistaxis/hemoptysis No recurrent episodes, Likely due to dual platelet agent aspirin and Plavix currently on hold, hematocrit stable follow clinical course Transaminitis. stable, chronically elevated, but worse now likely due to COVID, no nausea, no vomiting no abdominal pain, LFTs trending down and stable, Lipitor discontinued Hypertension. BP stable on home medication few high readings continue Coreg ,diltiazem,and vasotec. History of coronary artery disease Statins and aspirin on hold due to elevated LFTs and epistaxis/hemoptysis. Patient has allergy to aspirin therefore was on Plavix Type 2 Diabetes. continue Lantus and sliding scale insulin monitor blood glucose Hyperlipidemia. Statin held due to elevated LFT. GERD. PPI. DVT PPX Lovenox
[2020-12-26 20:22] LABS: Glucose, Whole Blood 140 mg/dL (60-115)
[2020-12-26] MEDS: Insulin Glargine,Hum.rec.anlog 100 UNIT/ML 10 ML VIAL 25 UNIT SUBCUT (20:34)
[2020-12-26] MEDS: Montelukast Sodium 10 MG TABLET PO (20:34)
[2020-12-26] MEDS: Gabapentin 100 MG CAPSULE PO (20:34)
[2020-12-27] VITALS (14 sets, daily range): BP systolic 90–139; BP diastolic 48–83; PULSE 90–122; RESP 18–28; TEMP 35.9–36.8; O2SAT 88–98
[2020-12-27] MEDS: 0.9 % Sodium Chloride Flush 3 ML SYRINGE IVFLUSH ×4 (00:31→23:24)
[2020-12-27 07:20] LABS: Glucose, Whole Blood 144 mg/dL (60-115)
[2020-12-27] MEDS: Multivitamin TABLET 1 TAB PO (08:28)
[2020-12-27] MEDS: Omeprazole 20 MG CAPSULE.DR PO (08:28)
[2020-12-27] MEDS: Benzonatate 100 MG CAPSULE PO (08:28)
[2020-12-27] MEDS: Isosorbide Mononitrate 60 MG TAB.ER.24H PO (08:28)
[2020-12-27] MEDS: Calcium + Vitamin D 250 MG TABLET 500 MG PO (08:29)
[2020-12-27] MEDS: Enalapril Maleate 10 MG TABLET PO (08:29)
[2020-12-27] MEDS: dilTIAZem HCL CD 240 MG CAP.ER.DEG PO (08:29)
[2020-12-27] MEDS: ALPRAZolam 0.25 MG TABLET PO (09:56)
[2020-12-27] MEDS: carvediloL 3.125 MG TABLET PO (10:10)
[2020-12-27 11:25] LABS: Glucose, Whole Blood 255 mg/dL (60-115)
[2020-12-27] MEDS: Insulin Lispro 100 UNIT/ML 3 ML VIAL SUBCUT (12:59)
[2020-12-27] MEDS: Enoxaparin Sodium 40 MG/0.4 ML SYRINGE SUBCUT (13:00)
--- NOTE | 2020-12-27 13:06 | P.PNIM_ITS ---
Subjective Subjective Date of Service: 12/28/20 Interval History: Patient complaining of mouth sore, feeling significantly weak, taking long time to swallow pills. 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 CVS regular rate rhythm, tachycardia Respiratory lungs bilateral expiratory rhonchi, tachypneic, appears short of breath , in mild respiratory distress Gastrointestinal abdomen soft, nontender, bowel sounds audible Extremities no edema. Neuro nonfocal, speech clear Skin no rash Objective Data Current Medications Generic Name Dose Route Start Last Admin Trade Name Jacobq PRN Reason Stop Dose Admin Acetaminophen 650 mg 12/11/20 14:01 12/25/20 16:19 Acetaminophen 325 Mg Tablet PO 650 mg Q6H PRN Administration Pain, Mild (Pain Scale 1-3) Acetaminophen/Butalbital/Caffeine 1 tab 12/14/20 09:44 12/21/20 01:21 Butalb/Acetamin/Caff 50/325/40 Tablet PO 1 tab RQ6H PRN Administration Headache Alprazolam 0.25 mg 12/19/20 15:23 12/27/20 09:56 Alprazolam 0.25 Mg Tablet PO 0.25 mg TID PRN Administration anxiety Benzonatate 100 mg 12/15/20 15:00 12/27/20 13:02 Benzonatate 100 Mg Capsule PO Not Given TID [facility] Calcium Carbonate/Cholecalciferol 500 mg 12/12/20 09:00 12/27/20 08:29 Calcium + Vitamin D 250 Mg Tablet PO 500 mg DAILY [facility] Administration Clotrimazole 1 appl 12/27/20 11:15 12/27/20 13:01 Clotrimazole 1 % Cream 15 Gm Tube TOPICAL Not Given BID [facility] Diltiazem HCl 240 mg 12/12/20 09:00 12/27/20 08:29 Diltiazem Hcl Cd 240 Mg Cap.Er.Deg PO 240 mg DAILY [facility] Administration Protocol Enalapril Maleate 10 mg 12/16/20 09:00 12/27/20 08:29 Enalapril Maleate 10 Mg Tablet PO 10 mg DAILY GAMALIEL Administration Protocol Enoxaparin Sodium 40 mg 12/14/20 13:00 12/27/20 13:00 Enoxaparin Sodium 40 Mg/0.4 Ml Syringe SUBCUT 40 mg Q24H GAMALIEL Administration Fluticasone/Vilanterol 1 puff 12/15/20 13:15 12/27/20 07:41 Fluticasone/Vilanterol 100/25 Blst.W.Dev INHALE Not Given RDAILY [facility] Gabapentin 100 mg 12/11/20 21:00 12/26/20 20:34 Gabapentin 100 Mg Capsule PO 100 mg BEDTIME GAMALIEL Administration Metoprolol Tartrate 5 mg/ 55 mls @ 220 mls/hr 12/27/20 12:00 Sodium Chloride IV Q6H [facility] Insulin Glargine 25 unit 12/17/20 21:00 12/26/20 20:34 Insulin Glargine,Hum.Rec.Anlog 100 Unit/Ml 10 Ml Vial SUBCUT 25 unit BEDTIME GAMALIEL Administration Insulin Human Lispro 0 unit 12/13/20 16:30 12/27/20 12:59 Insulin Lispro 100 Unit/Ml 3 Ml Vial SUBCUT 6 unit QIDACHS [facility] Administration Protocol Isosorbide Mononitrate 60 mg 12/11/20 14:01 12/27/20 08:28 Isosorbide Mononitrate 60 Mg Tab.Er.24h PO 60 mg DAILY GAMALIEL Administration Protocol Levalbuterol HCl 1.25 mg 12/26/20 03:26 Levalbuterol Hcl 1.25 Mg/0.5 Ml Vial.Neb INHALE Q3H PRN Shortness of Breath Lidocaine/Diphenhydr/Alum/Mg/Simeth 10 ml 12/27/20 12:00 12/27/20 13:01 Mag&Al/Sim/Diphenhyd/Lidocaine 10 Ml Oral.Susp PO Not Given Q6H [facility] Protocol Montelukast Sodium 10 mg 12/11/20 21:00 12/26/20 20:34 Montelukast Sodium 10 Mg Tablet PO 10 mg BEDTIME GAMALIEL Administration Multivitamins/Vitamin C 1 tab 12/12/20 09:00 12/27/20 08:28 Multivitamin Tablet PO 1 tab DAILY GAMALIEL Administration Omeprazole 20 mg 12/11/20 21:00 12/27/20 08:28 Omeprazole 20 Mg Capsule.Dr PO 20 mg BID GAMALIEL Administration Ondansetron HCl 4 mg 12/11/20 14:01 12/12/20 12:52 Ondansetron Hcl 4 Mg/2 Ml Vial IVPUSH 4 mg Q8H PRN Administration Nausea and Vomiting Oxycodone HCl 2.5 mg 12/19/20 10:48 12/24/20 01:56 Oxycodone Hcl Immed Release 5 Mg Tablet PO 2.5 mg Q6H PRN Administration Pain, Moderate (Pain Scale 4-6 Pharmacy Consult 1 each 12/11/20 10:47 Consult Rx Perform Med Rec MISCELLANE ONCE PRN Consult order Sodium Chloride 3 ml 12/11/20 16:00 12/27/20 08:30 0.9 % Sodium Chloride Flush 3 Ml Syringe IVFLUSH 3 ml QSHIFT [facility] Administration Tiotropium [place] 1 puff 12/15/20 13:30 12/27/20 07:41 Tiotropium [place] 18 Mcg Cap.W.Dev INHALE Not Given RDAILY [facility] Labs CBC & Chem 7: 12/26/20 04:56 12/28/20 08:12 Microbiology Microbiology Results: Microbiology 12/26/20 04:02 Blood - Venous Blood Culture - Preliminary No growth after 24 hours. 12/26/20 04:02 Blood - Venous Blood Culture - Preliminary No growth after 24 hours. 12/11/20 10:53 Blood - Venous Blood Culture - Final No growth after 5 days. 12/11/20 10:51 Blood - Venous Blood Culture - Final No growth after 5 days. 12/14/20 18:58 Urine clean catch - Clean Catch Midstream Urine Culture - Final Assessment and Plan (1) Acute respiratory failure with hypoxia: Status: Acute (2) Pneumonia due to COVID-19 virus: Status: Acute (3) Elevated troponin: Status: Acute (4) COPD exacerbation: Status: Acute (5) Pulmonary nodules: Problem details: 2020 CT abd with stable pulmonary nodule Status: Acute Assessment and Plan: 75 year old women admitted with Covid pneumonia. Mostly GI symptoms. Acute hypoxic respiratory failure due to covid 19 infection Persistent shortness of breath noted to have tachycardia this morning with difficulty swallowing continued on high-flow oxygen and non-rebreather Completed course of doxycycline, and dexamethasone, on Breo, Spiriva, Singulair, cough medication and scheduled ventolin mdi stable CBC, renal function, procalcitonin level 0.06, elevated D-dimer Positive PCR on 12/08/20, case discussed with ID had no role of remdesivir or convalescent plasma. Continue supportive care , spoke with HCP son Aaron Stallworth [phone] and discussed code status after informing him about no progress despite 16 days of steroids, high-flow oxygen now with sinus tachycardia poor by mouth intake, stomatitis he agreed for DNR DNI and goal towards comfort. Continue morphine and Xanax for anxiety and restlessness, Maintain oxygen above 90. Encourage by mouth continue Glucerna Stomatitis/angular cheilitis will add Magic mouthwash swish and spit and clotrimazole Sinus tachycardia likely due to persistent hypoxia will place patient on IV Lopressor since patient unable to take by mouth medication follow clinical course Mild hypernatremia resolved with IV fluid follow bmp Transient episode of epistaxis/hemoptysis No recurrent episodes, Likely due to dual platelet agent aspirin and Plavix , hematocrit stable follow clinical course, Transaminitis. stable, chronically elevated, but worse now likely due to COVID, no nausea, no vomiting no abdominal pain, LFTs trending down and stable, Lipitor discontinued Hypertension. BP stable on home medication few high readings continue ,diltiazem,and vasotec. History of coronary artery disease Statins on hold due to elevated LFTs , and Plavix was held due to epistaxis/hemoptysis. Patient has allergy to aspirin therefore was on Plavix Type 2 Diabetes. continue Lantus and sliding scale insulin, blood sugars fluctuating depending on by mouth intake, monitor blood glucose Hyperlipidemia. Statin held due to elevated LFT. GERD. PPI. DVT PPX Lovenox
[2020-12-27 15:59] LABS: Glucose, Whole Blood 188 mg/dL (60-115)
[2020-12-27] MEDS: Metoprolol Tartrate 5 MG in 0.9 % Sodium Chloride 50 ML 220 MG IV ×2 (17:21→23:59)
[2020-12-27] MEDS: Mag&Al/Sim/Diphenhyd/Lidocaine 10 ML ORAL.SUSP PO ×2 (17:38→23:24)
[2020-12-27 19:37] LABS: Glucose, Whole Blood 190 mg/dL (60-115)
[2020-12-27] MEDS: Clotrimazole 1 % Cream 15 GM TUBE 1 APPL TOPICAL (21:58)
[2020-12-28] VITALS (20 sets, daily range): BP systolic 104–171; BP diastolic 54–84; PULSE 89–132; RESP 18–30; TEMP 36.2–37.1; O2SAT 94–98
[2020-12-28] MEDS: Mag&Al/Sim/Diphenhyd/Lidocaine 10 ML ORAL.SUSP PO ×3 (05:57→17:28)
[2020-12-28] MEDS: Metoprolol Tartrate 5 MG in 0.9 % Sodium Chloride 50 ML 220 MG IV ×2 (05:57→11:59)
[2020-12-28 08:06] LABS: Glucose, Whole Blood 234 mg/dL (60-115)
[2020-12-28] MEDS: Fluticasone/Vilanterol 100/25 BLST.W.DEV 1 PUFF INHALE (08:10)
[2020-12-28 09:00] LABS: Anion Gap 17 (12-20); Blood Urea Nitrogen 46 mg/dL (9-16); Calcium 8.5 mg/dL (8.4-10.2); Carbon Dioxide 23 mmol/L (22-29); Chloride 111 mmol/L (96-108); Creatinine Clr Calc Pharmacy 43.9; Estimated Glomerular Filt Rate 53; Glucose Random 271 mg/dL (60-115); Sodium 147 mmol/L (135-145)
--- NOTE | 2020-12-28 09:19 | P.PNIM_ITS ---
Subjective Subjective Date of Service: 12/28/20 Interval History: History obtained via ear nose throat physician patient very lethargic and weak unable to express her needs , offers no acute complaints of pain nausea vomiting or shortness of breath. 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 Physical Exam Vital Signs: Vital Signs: Last Vital Signs Temp 98.1 F 12/28/20 08:00 Pulse 92 12/28/20 08:14 Resp 20 12/28/20 08:16 BP 107/69 12/28/20 08:00 Pulse Ox 97 12/28/20 08:00 Body Mass Index 25.7 General resting in bed, ill-appearing, lethargic Neck is supple, no JVD. CVS regular rate rhythm, tachycardia Respiratory lungs bilateral expiratory rhonchi, no respiratory distress this a.m. Gastrointestinal abdomen soft, nontender, bowel sounds audible Extremities no edema. Neuro nonfocal, speech clear Skin no rash Objective Data Current Medications Generic Name Dose Route Start Last Admin Trade Name Freq PRN Reason Stop Dose Admin Acetaminophen 650 mg 12/11/20 14:01 12/25/20 16:19 Acetaminophen 325 Mg Tablet PO 650 mg Q6H PRN Administration Pain, Mild (Pain Scale 1-3) Acetaminophen/Butalbital/Caffeine 1 tab 12/14/20 09:44 12/21/20 01:21 Butalb/Acetamin/Caff 50/325/40 Tablet PO 1 tab RQ6H PRN Administration Headache Alprazolam 0.25 mg 12/19/20 15:23 12/27/20 09:56 Alprazolam 0.25 Mg Tablet PO 0.25 mg TID PRN Administration anxiety Clotrimazole 1 appl 12/27/20 11:15 12/27/20 21:58 Clotrimazole 1 % Cream 15 Gm Tube TOPICAL 1 appl BID GAMALIEL Administration Enoxaparin Sodium 40 mg 12/14/20 13:00 12/27/20 13:00 Enoxaparin Sodium 40 Mg/0.4 Ml Syringe SUBCUT 40 mg Q24H GAMALIEL Administration Famotidine 20 mg 12/29/20 09:00 Famotidine/Pf 20 Mg/2 Ml Vial IVPUSH DAILY GAMALIEL Fluticasone/Vilanterol 1 puff 12/15/20 13:15 12/28/20 08:10 Fluticasone/Vilanterol 100/25 Blst.W.Dev INHALE 1 puff RDAILY [facility] Administration Gabapentin 100 mg 12/11/20 21:00 12/27/20 21:59 Gabapentin 100 Mg Capsule PO Not Given BEDTIME [facility] Metoprolol Tartrate 5 mg/ 55 mls @ 220 mls/hr 12/27/20 12:00 12/28/20 06:48 Sodium Chloride IV Infused Q6H [facility] Infusion Dextrose 1,000 mls @ 75 mls/hr 12/28/20 09:15 D5w IVCONT .[id number] [facility] Insulin Glargine 25 unit 12/17/20 21:00 12/27/20 21:59 Insulin Glargine,Hum.Rec.Anlog 100 Unit/Ml 10 Ml Vial SUBCUT Not Given BEDTIME [facility] Insulin Human Lispro 0 unit 12/13/20 16:30 12/27/20 21:59 Insulin Lispro 100 Unit/Ml 3 Ml Vial SUBCUT Not Given QIDACHS [facility] Protocol Isosorbide Mononitrate 30 mg 12/29/20 09:15 Isosorbide Mononitrate 30 Mg Tab.Er.24h PO DAILY [facility] Protocol Levalbuterol HCl 1.25 mg 12/26/20 03:26 Levalbuterol Hcl 1.25 Mg/0.5 Ml Vial.Neb INHALE Q3H PRN Shortness of Breath Lidocaine/Diphenhydr/Alum/Mg/Simeth 10 ml 12/27/20 12:00 12/28/20 05:57 Mag&Al/Sim/Diphenhyd/Lidocaine 10 Ml Oral.Susp PO 10 ml Q6H GAMALIEL Administration Protocol Morphine Sulfate 2 mg 12/27/20 13:33 Morphine Sulfate 2 Mg/Ml Cartridge IVPUSH Q4H PRN Shortness of Breath Ondansetron HCl 4 mg 12/11/20 14:01 12/12/20 12:52 Ondansetron Hcl 4 Mg/2 Ml Vial IVPUSH 4 mg Q8H PRN Administration Nausea and Vomiting Oxycodone HCl 2.5 mg 12/19/20 10:48 12/24/20 01:56 Oxycodone Hcl Immed Release 5 Mg Tablet PO 2.5 mg Q6H PRN Administration Pain, Moderate (Pain Scale 4-6 Pharmacy Consult 1 each 12/11/20 10:47 Consult Rx Perform Med Rec MISCELLANE ONCE PRN Consult order Sodium Chloride 3 ml 12/11/20 16:00 12/27/20 23:24 0.9 % Sodium Chloride Flush 3 Ml Syringe IVFLUSH 3 ml QSHIFT GAMALIEL Administration Tiotropium [place] 1 puff 12/15/20 13:30 12/28/20 08:10 Tiotropium [place] 18 Mcg Cap.W.Dev INHALE 1 puff RDAILY GAMALIEL Administration Labs CBC & Chem 7: 12/26/20 04:56 12/28/20 08:12 Microbiology Microbiology Results: Microbiology 12/26/20 04:02 Blood - Venous Blood Culture - Preliminary No growth after 48 hours. 12/26/20 04:02 Blood - Venous Blood Culture - Preliminary No growth after 48 hours. 12/11/20 10:53 Blood - Venous Blood Culture - Final No growth after 5 days. 12/11/20 10:51 Blood - Venous Blood Culture - Final No growth after 5 days. 12/14/20 18:58 Urine clean catch - Clean Catch Midstream Urine Culture - Final Assessment and Plan (1) Epistaxis: Status: Acute (2) Transaminitis: Status: Acute (3) Acute respiratory failure with hypoxia: Status: Acute (4) Pneumonia due to COVID-19 virus: Status: Acute (5) Elevated troponin: Status: Acute (6) Stomatitis: Status: Acute (7) Hypernatremia: Status: Acute Assessment and Plan: 75 year old women admitted with Covid pneumonia. Mostly GI symptoms. Acute hypoxic respiratory failure due to covid 19 infection Persistent shortness of breath, tachycardia poor by mouth intake noted to be lethargic this morning, on high-flow oxygen , 100% non-rebreather discontinue Patient by mouth intake has significantly declined unable to take by mouth medication therefore will switch medications to IV and stop other by mouth medication Will DC Cardizem and vasotec due to low bp,will dc by mouth Prilosec, by mouth multivitamin ,by mouth calcium, Patient has Completed course of doxycycline, and dexamethasone, Will continue as needed albuterol and Spiriva stable CBC, renal function, noted to have elevated sodium and chloride Continue supportive care , spoke with HCP son Aaron Stallworth [phone] on December 27 and discussed code status after informing him about no progress despite 16 days of steroids, high-flow oxygen now with sinus tachycardia poor by mouth intake, stomatitis he agreed for DNR DNI and goal towards comfort. Continue morphine and Xanax for anxiety and restlessness, Maintain oxygen above 90. Encourage by mouth continue Glucerna, guarded prognosis Hypernatremia due to decreased by mouth intake will place patient on IV D5W Stomatitis/angular cheilitis continue Magic mouthwash swish and spit and clotrimazole Sinus tachycardia likely due to persistent hypoxia, dehydration continue IV Lopressor since patient unable to take by mouth medication , treat dehydration follow clinical course Transient episode of epistaxis/hemoptysis No recurrent episodes, Likely due to dual platelet agent aspirin and Plavix , hematocrit stable follow clinical course, Transaminitis. stable, chronically elevated, but worse now likely due to COVID, no nausea, no vomiting no abdominal pain, LFTs trending down and stable, Lipitor discontinued Hypertension. BP BP soft will discontinue diltiazem and weighs attack will lower dose of Iso rdil patient on IV Lopressor History of coronary artery disease Statins on hold due to elevated LFTs , and Plavix was held due to epistaxis/hemoptysis. Patient has allergy to aspirin therefore was on Plavix Type 2 Diabetes. On Lantus and sliding scale insulin, blood sugars fluctuating depending on by mouth intake, monitor blood glucose closely and will reduce dose of Lantus to avoid hypoglycemia Hyperlipidemia. Statin held due to elevated LFT. GERD. Placed on IV Pepcid since unable to take by mouth meds DVT PPX Lovenox
[2020-12-28] MEDS: Insulin Lispro 100 UNIT/ML 3 ML VIAL SUBCUT ×3 (09:51→16:47)
[2020-12-28] MEDS: 0.9 % Sodium Chloride Flush 3 ML SYRINGE IVFLUSH (09:52)
[2020-12-28] MEDS: Dextrose 5 % 1,000 ML 75 ML IVCONT (09:52)
[2020-12-28] MEDS: Clotrimazole 1 % Cream 15 GM TUBE 1 APPL TOPICAL ×2 (09:52→21:26)
[2020-12-28 11:29] LABS: Glucose, Whole Blood 270 mg/dL (60-115)
--- NOTE | 2020-12-28 11:36 | PC.NURSE ---
Addendum entered by Vicky Martinez RN 12/28/20 14:38: 1420- HR 145-150s. Pt appears to be resting in bed comfortably. Dr. Duarte made aware. Metoprolol increased to 7.5mg for further doses. 1440- HR back down to 110. Will continue to monitor. Original Note: 0730- Pt HR 132. Pt awakes to voice, however trouble verbalizing how feels due to weakness. Unable to take PO meds due to trouble swallowing. Dr. Duarte made aware. No new orders at this time. 0800- HR 106. Will continue to monitor.
[2020-12-28] MEDS: Enoxaparin Sodium 40 MG/0.4 ML SYRINGE SUBCUT (11:58)
--- NOTE | 2020-12-28 13:20 | MHC.CM.PN ---
Per ROUNDS discussion, Patient's condition is guarded (IV Metoprolol, high flow O2). Home with [facility] is the goal and CM will continue to follow for possible need to adjust the dc plan.
[2020-12-28] MEDS: Morphine Sulfate 2 MG/ML CARTRIDGE IVPUSH ×2 (13:35→17:58)
[2020-12-28 16:32] LABS: Glucose, Whole Blood 208 mg/dL (60-115)
[2020-12-28] MEDS: Metoprolol Tartrate 7.5 MG in 0.9 % Sodium Chloride 50 ML 220 MG IV (17:19)
--- NOTE | 2020-12-28 18:34 | PC.NURSE ---
Pt has become more restless over last few hours. Pulling off o2 numerous times. Pt moaning whenever awake. Pt unable to make needs known. Vitals stable. Morphine given at 1758. Dr. Duarte made aware. No new orders at this time. Will update oncoming nurse on patients status.
[2020-12-28 20:05] LABS: Glucose, Whole Blood 139 mg/dL (60-115)
[2020-12-29] VITALS (18 sets, daily range): BP systolic 134–165; BP diastolic 66–91; PULSE 87–110; RESP 14–25; TEMP 36.4–37.3; O2SAT 91–99; BMI 25.7
[2020-12-29] MEDS: Metoprolol Tartrate 7.5 MG in 0.9 % Sodium Chloride 50 ML 220 MG IV ×2 (00:01→06:28)
[2020-12-29] MEDS: 0.9 % Sodium Chloride Flush 3 ML SYRINGE IVFLUSH ×4 (00:02→23:40)
[2020-12-29] MEDS: Mag&Al/Sim/Diphenhyd/Lidocaine 10 ML ORAL.SUSP PO ×4 (00:02→23:40)
[2020-12-29] MEDS: Dextrose 5 % 1,000 ML 75 ML IVCONT (00:19)
[2020-12-29 07:55] LABS: Glucose, Whole Blood 288 mg/dL (60-115)
[2020-12-29] MEDS: Clotrimazole 1 % Cream 15 GM TUBE 1 APPL TOPICAL ×2 (10:21→21:24)
[2020-12-29] MEDS: Morphine Sulfate 2 MG/ML CARTRIDGE IVPUSH (10:21)
[2020-12-29] MEDS: Famotidine/PF 20 MG/2 ML VIAL IVPUSH (10:21)
[2020-12-29 11:18] LABS: Glucose, Whole Blood 311 mg/dL (60-115)
[2020-12-29] MEDS: LORazepam 2 MG/ML VIAL 0.5 MG IVPUSH ×3 (12:02→21:23)
[2020-12-29] MEDS: Enoxaparin Sodium 40 MG/0.4 ML SYRINGE SUBCUT (12:03)
[2020-12-29] MEDS: Insulin Lispro 100 UNIT/ML 3 ML VIAL SUBCUT (12:16)
[2020-12-29] MEDS: Metoprolol Tartrate 10 MG in 0.9 % Sodium Chloride 50 ML 220 MG IV (12:27)
[2020-12-29] MEDS: Morphine Sulfate 2 MG/ML CARTRIDGE 3 MG IVPUSH ×5 (14:09→23:40)
--- NOTE | 2020-12-29 14:19 | PC.NURSE ---
pt pulling off 02, lethargic. unable to take po meds.100% high flow with spo2 decreasing to mid 80s. rr 20-30/min. lungs dim bilat. pt stating I am in so much pain. md spoke with son (HCP) over the phone. 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 ativan given for restlessness and morphine given for discomfort. attempts were made to connect pt to son over facetime and zoom but were unsuccessful. pt repositioned q 2 hours to maintain skin integrity.
--- NOTE | 2020-12-29 16:28 | HO.PM.IMPN ---
Subjective Subjective Date of Service: 12/29/20 Interval History: Patient noted to be lethargic restless , taking off oxygen, telemonitor showed sinus tachycardia, not communicating her needs, decreased by mouth intake. Unable to obtain review of system due to lethargy and restlessness. Physical Exam Vital Signs: Vital Signs: Last Vital Signs Temp 99.1 F 12/29/20 11:18 Pulse 110 H 12/29/20 12:27 Resp 24 H 12/29/20 16:22 BP 165/73 H 12/29/20 12:27 Pulse Ox 99 12/29/20 11:18 Body Mass Index 25.7 General very restless constantly getting up, pulling oxygen tubing Neck no JVD. CVS tachy regular Respiratory lungs bilateral expiratory rhonchi, no respiratory distress this a.m. Gastrointestinal abdomen soft, nontender, bowel sounds audible Extremities no edema. Neuro moving all 4 extremities Skin no rash Objective Data Current Medications Generic Name Dose Route Start Last Admin Trade Name Freq PRN Reason Stop Dose Admin Acetaminophen 650 mg 12/11/20 14:01 12/25/20 16:19 Acetaminophen 325 Mg Tablet PO 650 mg Q6H PRN Administration Pain, Mild (Pain Scale 1-3) Clotrimazole 1 appl 12/27/20 11:15 12/29/20 10:21 Clotrimazole 1 % Cream 15 Gm Tube TOPICAL 1 appl BID GAMALIEL Administration Metoprolol Tartrate 10 mg/ 60 mls @ 220 mls/hr 12/29/20 10:49 12/29/20 14:00 Sodium Chloride IV Infused Q6H GAMALIEL Infusion Levalbuterol HCl 1.25 mg 12/26/20 03:26 Levalbuterol Hcl 1.25 Mg/0.5 Ml Vial.Neb INHALE Q3H PRN Shortness of Breath Lidocaine/Diphenhydr/Alum/Mg/Simeth 10 ml 12/27/20 12:00 12/29/20 12:02 Mag&Al/Sim/Diphenhyd/Lidocaine 10 Ml Oral.Susp PO 10 ml Q6H GAMALIEL Administration Protocol Lorazepam 0.5 mg 12/29/20 10:47 12/29/20 12:02 Lorazepam 2 Mg/Ml Vial IVPUSH 0.5 mg Q6H PRN Administration Anxiety Morphine Sulfate 3 mg 12/29/20 13:39 12/29/20 16:22 Morphine Sulfate 2 Mg/Ml Cartridge IVPUSH 3 mg Q2H PRN Administration Shortness of Breath Ondansetron HCl 4 mg 12/11/20 14:01 12/12/20 12:52 Ondansetron Hcl 4 Mg/2 Ml Vial IVPUSH 4 mg Q8H PRN Administration Nausea and Vomiting Pharmacy Consult 1 each 12/11/20 10:47 Consult Rx Perform Med Rec MISCELLANE ONCE PRN Consult order Sodium Chloride 3 ml 12/11/20 16:00 12/29/20 15:22 0.9 % Sodium Chloride Flush 3 Ml Syringe IVFLUSH 3 ml QSHIFT GAMALIEL Administration Labs CBC & Chem 7: 12/26/20 04:56 12/28/20 08:12 Microbiology Microbiology Results: Microbiology 12/26/20 04:02 Blood - Venous Blood Culture - Preliminary No growth after 48 hours. 12/26/20 04:02 Blood - Venous Blood Culture - Preliminary No growth after 48 hours. 12/11/20 10:53 Blood - Venous Blood Culture - Final No growth after 5 days. 12/11/20 10:51 Blood - Venous Blood Culture - Final No growth after 5 days. 12/14/20 18:58 Urine clean catch - Clean Catch Midstream Urine Culture - Final Assessment and Plan (1) Acute respiratory failure with hypoxia: Status: Acute (2) Pneumonia due to COVID-19 virus: Status: Acute (3) Transaminitis: Status: Acute (4) Epistaxis: Status: Acute (5) Stomatitis: Status: Acute (6) Hypernatremia: Status: Acute Assessment and Plan: 75 year old women admitted with Covid pneumonia. Mostly GI symptoms. Acute hypoxic respiratory failure due to covid 19 infection Patient making no progress despite treatment with IV dexamethasone, IV antibiotics, high-flow oxygen/100% non-rebreather mask , inhalers, likely due to underlying interstitial lung disease, pulmonary nodules, history of asthma, advanced COPD and recent diagnosis of coronary artery disease, she continue to require high-flow oxygen, now with poor by mouth intake, refusing meds, hypernatremia, sinus tachycardia , restlessness, refusing to wear oxygen, therefore case discussed with HCP bhaskar Stallworth [phone] today and informed him about patient's poor progress, 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 Statin held due to elevated LFT. GERD.
[2020-12-29] MEDS: ondansetron HCL 4 MG/2 ML VIAL IVPUSH (21:23)
[2020-12-30] MEDS: LORazepam 2 MG/ML VIAL 0.5 MG IVPUSH (01:47)
--- NOTE | 2020-12-30 05:10 | PM.EVENT ---
Event Note Date of Service: 12/30/20 Event Note: Note: A at around 4:45 a.m. on 12/30/2020 RN mentioned that patient has not been breathing and appears to be . I went and examined the patient; unresponsive, no respirations noticed, on exam pupils are fixed and dilated. Patient pronounced on 01/26/2021 at 4:50 a.m. Notified the patient's son Basim; RN notified the organ donation-declined for. Cause of : Acute respiratory failure in the setting of COVID-19 pneumonia.
--- NOTE | 2020-12-30 05:50 | PC.NURSE ---
This patient was on comfort measures only in regards to her care. Since the start of shift, patient was noted to have retracted breathing and was minimally alert to verbal stimuli. At approximately 0440 the patient was noticed to be having deep-emery respirations and not responding to verbal stimuli. While at the bedside, patient was observed taking a last final breath and cessation of respirations followed. Further assessment showed a lack of an observable pulse and therefore the hospitalist, Dr. Sierra was alerted of the change in patient condition. The hospitalist soon presented to the patients bedside, pulse and neurological function checked with lack of either and time of was declared at 0450. Per policy, organ donation was called and per Kellen, they declined the patient as a viable candidate due to her being COVID+. Patient's son, Aaron was informed of her passing and post mortem care was performed.
--- NOTE | 2020-12-30 19:05 | PM.DDS ---
Discharge Sum: Prov Provider Primary care physician: Unknown Physician Consults: 12/11/20 14:01 Consult to Pulmonology Routine Consulting Provider: Jesus Thomas Reason for consultation: covid 19 Has provider been notified: No 12/11/20 15:49 Consult to Infectious Diseases Routine Consulting Provider: Miriam Elder Reason for consultation: covid 19 Has provider been notified: No Pronouncing clinician: Mario Sierra Discharge Sum: Diag Contributing Factors (1) Acute respiratory failure with hypoxia: (2) Pneumonia due to COVID-19 virus: (3) Transaminitis: (4) Epistaxis: (5) Stomatitis: (6) Hypernatremia: Discharge Sum: Summary Date and Time Date of admission: 12/11/20 14:01 Date of : 12/30/20 Time of : 04:50 Summary Details: 75-year-old patient admitted to [facility] on 12/11/2020 with a diagnosis of COVID pneumonia with acute hypoxic respiratory failure patient was treated with IV dexamethasone, IV antibiotics high-flow oxygen and 100% non-rebreather mask, but patient did not make any progress despite aggressive treatment ,her by mouth intake declined she she became restless and was noted to have hypernatremia, stomatitis, sinus tachycardia, she start pulling oxygen tubes, due to history of advanced COPD, history of interstitial lung disease with pulmonary nodules and history of asthma with recent diagnosis of coronary artery disease and guarded prognosis case was discussed with patient's son healthcare proxy Aaron Stallworth [phone] and informed him about patient's poor prognosis and progress, he agreed for GEAR SETTER therefore patient was placed on IV morphine and IV Ativan respiratory distress and agitation, Additional Data Confirmation of as documented by pronouncing clinician: no pulse, no respirations, no heart sounds and pupils fixed and dilated Family: contacted Attending physician: David Duarte MD Was code activated?: No Autopsy requested?: No cloth examiner hand notified?: No Organ bank notified?: No Hospice patient?: No
== END 2020-12-30 05:54 | disposition expired | DRG 871 ==
LOC: HO.ED 14:01 → HO.EDOVER 14:15 → HO.ISO 17:01 → HO.IMC 12-19 22:07
PROVIDERS: Hospitalist; Internal Medicine; Nurse Practitioner Acute Care; Admitting Provider Student in an Organized Health Care Education/Training Program; Emergency Provider Emergency Medicine; PCP Internal Medicine; Visit Provider Hospitalist
DX: A41.89 Other specified sepsis (principal); U07.1 COVID-19; J12.82 Pneumonia due to coronavirus disease 2019; R04.2 Hemoptysis; E11.649 Type 2 diabetes mellitus with hypoglycemia without coma; K21.9 Gastro-esophageal reflux disease without esophagitis; K22.70 Barrett's esophagus without dysplasia; R04.0 Epistaxis; I25.10 Atherosclerotic heart disease of native coronary artery without angina pectoris; K13.0 Diseases of lips; I10 Essential (primary) hypertension; Z88.0 Allergy status to penicillin; Z88.6 Allergy status to analgesic agent; Z79.02 Long term (current) use of antithrombotics/antiplatelets; Z79.51 Long term (current) use of inhaled steroids; Z79.52 Long term (current) use of systemic steroids; Z79.82 Long term (current) use of aspirin; Z79.899 Other long term (current) drug therapy; Z51.5 Encounter for palliative care
CPT/HCPCS: 36415; 36600; 71045; 71250; 80048; 80076; 81001; 82550; 82728; 82803; 82947; 83605; 83615; 83690; 83735; 83880; 84145; 84484; 85014; 85018; 85025; 85027; 85379; 85610; 85730; 86140; 86769; 87040; 87086; 87635; 93005; 94640; 94664; 96361; 96365; 96366; 96367; 96375; 99283; 99284; 99285; 99291; C1758; J0696; J1100; J1650; J2060; J2270; J2405; J2930; J3475; J8540